=== PATIENT | male | born 1970 | race Two or more races ===

== ENCOUNTER 2020-06-10 13:08 | Outpatient (REF) | payer OTHER, SELFPAY | END 2020-06-10 13:09 | disposition home or self-care (01) | LOC: HO.LAB 13:08 | PROVIDERS: PCP Internal Medicine; Visit Provider Internal Medicine | DX: Z20.828 Contact with and (suspected) exposure to other viral communicable diseases (principal) | CPT/HCPCS: C9803; U0003 ==

== ENCOUNTER 2020-08-10 09:55 | Day surgery (SDC) | payer OTHER, SELFPAY ==
[2020-08-06 15:44] VITALS: BMI 30.8
--- NOTE | 2020-08-07 08:47 | HO.ANESPROP2 ---
Documented by User: Imani Waite 08/07/20 08:48 HPI - Anesthesia Eval Consult details Narrative: 50yo M for Colonoscopy [facility] Past Medical History Medical History HTN (hypertension) Hx of renal calculi Surgical History Surgical History Hx of repair of right rotator cuff Social History Social History Alcohol intake: never Smoking Status: Never smoker Use of substances other than those prescribed or required for medical reasons: No Advance Directives: No Advance Directives Information Provided: No Advance Directives on File: No Meds Allergies Allergy/AdvReac Type Severity Reaction Status Date / Time No Known Allergies Allergy Verified 08/06/20 15:43 Home Medications Medication Instructions Recorded Confirmed Type lisinopril See Rx Instructions .ROUTE .COMPLEX 08/10/20 08/10/20 History Exam Exam Date and Time: August 07, 2020 0847 Height,Weight and Vital Signs: Height 5 ft 10 in Weight 97.522 kg Assessment and Plan Assessment Anesthesia Assessment: Chart Reviewed Documented by User: Mp Pierre 08/10/20 10:50 [facility] Past Medical History Medical History HTN (hypertension) Hx of renal calculi Surgical History Surgical History Hx of repair of right rotator cuff Social History Social History Alcohol intake: never Smoking Status: Never smoker Use of substances other than those prescribed or required for medical reasons: No Advance Directives: No Advance Directives Information Provided: No Advance Directives on File: No Meds Allergies Allergy/AdvReac Type Severity Reaction Status Date / Time No Known Allergies Allergy Verified 08/06/20 15:43 Home Medications Medication Instructions Recorded Confirmed Type lisinopril See Rx Instructions .ROUTE .COMPLEX 08/10/20 08/10/20 History Exam Airway Mallampati Class: II TM Dist: >3cm Neck ROM: Full Loose/Missing/Broken Teeth: No Heart: [id number] Lungs: cta b/l Assessment and Plan Assessment Anesthesia Assessment: Anesthesia Plan Discussed, PAT Visit and Chart Reviewed Final Anesthetic Review NPO: Yes ASA Class: II Final Preanesthetic Review: No Changes in Pt Med Stat, Meds/Allgs Chart Reviewed, Consent Obtained/Reviewed and Anes Risks/Benef Reviewed Patient Risk: Low Procedure Risk: Low Assessment/Block/Sedation in SS: Assess/Block/Sedation-SS Anesthetic Plan Anesthetic Plan: MAC: and Agree w/ Assess. and Plan Disposition: Standard PACU
[2020-08-10 10:18] VITALS: BP 129/88; PULSE 102; RESP 16; TEMP 36.7; O2SAT 97
[2020-08-10] MEDS: Lactated Ringers 1,000 ML 100 ML IVCONT (10:22)
[2020-08-10 11:20] VITALS: BP 101/63; PULSE 104; RESP 16; TEMP 36.4; O2SAT 96
--- NOTE | 2020-08-10 11:20 | PM.OP ---
Brief Operative Note Date of Service: 08/10/20 Pre-op diagnosis: Screening Post-op diagnosis: other (Colon polyps, Diverticulosis) Procedure: [id number] to the cecum and TI with biopsy and removal of polyp, and snare polypectomy Surgeon: Casper Novak Anesthesia: MAC Estimated blood loss (mL): 3.0 Pathology: other (A. Cecal polyp B. Colon polyp at 50cm) Condition: stable Disposition: PACU
[2020-08-10 11:36] VITALS: BP 110/74; PULSE 84; RESP 16; TEMP 36.4; O2SAT 96
--- NOTE | 2020-08-10 12:02 | HO.POSTANES ---
Post Anesthesia Evaluation Post Anesthesia Evaluation Vital Signs: Vital Signs Temp Pulse Resp BP Pulse Ox 08/10/20 11:36 97.5 F 84 16 110/74 96 08/10/20 11:20 97.5 F 104 H 16 101/63 96 08/10/20 10:18 98.0 F 102 H 16 129/88 97 Anesthesia: Monitored Mental Status: Awake Pain Control: Satisfactory Nausea/Vomiting: None Hydration: Adequate Anesthesia-Related Issues: No Anes. Related Issues
--- NOTE | 2020-08-10 12:12 | OP_ITS ---
SURGEON: Casper Novak MD INDICATIONS: The patient presents for evaluation of colorectal cancer screening. Full consent has been obtained from him for this, including risks of bleeding and perforation. PREOPERATIVE DIAGNOSIS: Colorectal cancer screening. POSTOPERATIVE DIAGNOSIS: PROCEDURE PERFORMED: Colonoscopy to cecum and terminal ileum with snare polypectomy, and biopsy and removal of polyp. ESTIMATED BLOOD LOSS: COMPLICATIONS: ANESTHESIA: Monitored anesthesia care. ASSISTANTS: SPECIMENS: POSTOPERATIVE DIAGNOSES: Colorectal cancer screening, colon polyps, diverticulosis, and internal hemorrhoids. DESCRIPTION OF PROCEDURE: The patient was placed in the left lateral decubitus position. The digital rectal exam revealed no abnormalities. The Olympus video pediatric colonoscope was entered into the rectum and advanced easily to the cecum. Once in the cecum, I did identify cecal pouch with appendiceal orifice and a normal-appearing ileocecal valve. The terminal ileum was cannulated and appeared normal. The scope was withdrawn back in the colon. The entire cecum and ileocecal valve appeared normal other than an approximately 3 or 4 mm probable hyperplastic polyp near the appendiceal orifice that was biopsied and completely removed with cold biopsy forceps. The scope was slowly withdrawn assessing all mucosal surfaces carefully. Preparation was excellent. At 50 cm, there was an approximately 6 to 8 mm polyp, which was snared and recovered by suction. The polypectomy site appeared clean, without any sign of residual polyp nor bleeding. I did not visualize any other polyps, colitis, nor angiodysplasia. There was an occasional diverticula in the sigmoid colon. In the rectum, scope was retroflexed visualizing small internal hemorrhoids, but no other pathology. The rectal mucosa appeared normal. The scope was straightened and withdrawn from the patient. He tolerated the procedure well and was returned to recovery area in stable condition. IMPRESSION: 1. Colon polyps, status post snare polypectomy and biopsy removal. 2. Occasional diverticulosis. 3. Small internal hemorrhoids. PLAN: If these are tubular adenoma, I would recommend a followup colonoscopy in 5 years. If they are not tubular adenomas, I would recommend a followup colonoscopy in 10 years for screening. He was advised not to use any aspirin and NSAIDs for 1 week. This has been discussed with his . MD ANGELES Thomason/JOE / [id number]
== END 2020-08-10 12:03 | disposition home or self-care (01) ==
PROVIDERS: PCP Internal Medicine; Visit Provider Internal Medicine
PROC: 0DJD8ZZ Inspection of Lower Intestinal Tract, Via Natural or Artificial Opening Endoscopic (ICD-10-PCS; CPT 45378; principal; 2020-08-10 11:00)
DX: Z12.11 Encounter for screening for malignant neoplasm of colon (principal); D12.5 Benign neoplasm of sigmoid colon; K63.5 Polyp of colon; K57.30 Diverticulosis of large intestine without perforation or abscess without bleeding; K64.8 Other hemorrhoids; I10 Essential (primary) hypertension; Z79.899 Other long term (current) drug therapy
CPT/HCPCS: 45385; 45380; 88305

== ENCOUNTER 2020-10-12 08:57 | Outpatient (REF) | payer OTHER, SELFPAY ==
--- NOTE | ~2020-10-12 | FL_ITS ---
EXAMINATION: XR GI SERIES CLINICAL INFORMATION: Gastroesophageal reflux COMPARISON: None TECHNIQUE: Upper GI was performed using thin and thick barium and effervescent granules. FINDINGS: Esophageal motility is normal. There is mild gastroesophageal reflux. No esophageal hernia, mass or stricture is seen. The stomach and duodenum are normal-appearing. No fold thickening, ulceration, mass or stricture is seen. FLUOROSCOPY TIME: 0.7 DOSE AREA PRODUCT: 10 cook per centimeter squared. 19 saved fluoroscopic images. FL/FL upper GI series IMPRESSION: Mild gastroesophageal reflux otherwise unremarkable exam.
== END 2020-10-12 08:58 | disposition home or self-care (01) ==
LOC: HO.XRAY 08:57
PROVIDERS: PCP Internal Medicine; Visit Provider Internal Medicine
DX: K21.00 Gastro-esophageal reflux disease with esophagitis, without bleeding (principal)
CPT/HCPCS: 74240

== ENCOUNTER 2021-03-19 09:39 | Outpatient (REF) | payer OTHER, SELFPAY | END 2021-03-19 09:40 | disposition home or self-care (01) | LOC: HO.LAB 09:39 | PROVIDERS: PCP Internal Medicine; Referring Provider Internal Medicine; Visit Provider Surgery | DX: L91.8 Other hypertrophic disorders of the skin (principal); L53.8 Other specified erythematous conditions | CPT/HCPCS: 11401; 88304; 88305 ==

== ENCOUNTER 2021-06-15 10:09 | Outpatient (REF) | payer OTHER, SELFPAY ==
[2021-06-15 10:13] LABS: MANUAL DIFF FLAG NO
[2021-06-15 10:39] LABS: Basophils Absolute Auto 0.1 X10*3/uL (0.0-0.2); Basophils Percent Auto 0.9 % (0-2); Eosinophils Absolute Auto 0.3 X10*3/uL (0.0-0.4); Eosinophils Percent Auto 3.4 % (0-4); Hemoglobin 13.4 g/dl (14.0-18.0); Imm Gran Abs Auto 0.02 X10*3/uL (0.00-0.03); Imm Gran Pct Auto 0.2 % (0.0-0.4); Lymphocytes Absolute Auto 2.5 X10*3/uL (1.2-4.9); Lymphocytes Percent Auto 26.8 % (20-40); Mean Corpuscular HGB Conc 33.5 g/dl (31.0-36.0); Mean Corpuscular Hemoglobin 28.8 pg (27.0-33.0); Mean Corpuscular Volume 85.8 fL (80.0-98.0); Mean Platelet Volume 11.1 fL (9.4-12.4); Monocytes Absolute Auto 0.8 X10*3/uL (0.1-1.2); Monocytes Percent Auto 8.8 % (2-11); Neutrophils Absolute Auto 5.5 x10*3/uL (2.0-8.3); Neutrophils Percent Auto 59.9 % (45-73); Platelet Count 252 X10*3/uL (160-400); Red Blood Count 4.66 X10*6/uL (4.60-5.80); Red Cell Distribution Width 12.8 % (11.0-16.0); White Blood Count 9.2 X10*3/uL (4.8-10.8)
[2021-06-15 10:59] LABS: Appearance Urine CLEAR; Color Urine YELLOW; Glucose Urine UA NEG (NEG); Leukocyte Esterase Urine NEG (NEG); Nitrite Urine NEG (NEG); Specific Gravity - Urine 1.015 (1.005-1.025); Urine Blood NEG (NEG); Urine Ketones NEG (NEG); Urine Protein TRACE MG/DL (NEG-TRACE)
[2021-06-15 11:27] LABS: Alanine Aminotransferase 44 U/L (0-40); Albumin Level 4.5 g/dL (3.5-5.0); Alkaline Phosphatase 81 U/L (39-117); Anion Gap 14 (12-20); Aspartate Amino Transferase 32 U/L (5-37); Bilirubin Total 0.3 mg/dL (0.0-1.0); Blood Urea Nitrogen 18 mg/dL (9-16); Calcium 9.3 mg/dL (8.4-10.2); Carbon Dioxide 24 mmol/L (22-29); Chloride 105 mmol/L (96-108); Cholesterol 221 mg/dL; Estimated Glomerular Filt Rate > 60; Glucose Fasting 110 mg/dL (60-99); HDL Cholesterol 54 mg/dL; LDL Cholesterol Calculated 145 mg/dl; Potassium 4.4 mmol/L (3.3-5.1); Sodium 139 mmol/L (135-145); Total Protein 7.6 g/dL (6.5-8.0); Triglycerides 114 mg/dL
[2021-06-15 11:30] LABS: PSA,Total (Free>4and<10) 2.08 ng/mL (0.00-4.00)
== END 2021-06-15 10:10 | disposition home or self-care (01) ==
LOC: HO.LNP 10:09
PROVIDERS: PCP Internal Medicine; Visit Provider Internal Medicine
DX: Z00.00 Encounter for general adult medical examination without abnormal findings (principal); Z12.5 Encounter for screening for malignant neoplasm of prostate; I10 Essential (primary) hypertension; E78.9 Disorder of lipoprotein metabolism, unspecified
CPT/HCPCS: 80053; 80061; 81003; 84153; 85025

== ENCOUNTER 2021-06-27 21:19 | Emergency (ER) | payer OTHER, SELFPAY ==
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
[2021-06-27 21:25] VITALS: BP 121/73; PULSE 84; RESP 18; TEMP 36.1; O2SAT 95; BMI 33.2
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
[2021-06-28] MEDS: Cyclobenzaprine HCl 10 MG TABLET PO (00:16)
== END 2021-06-28 00:35 | disposition home or self-care (01) ==
PROVIDERS: Emergency Provider Emergency Medicine; PCP Internal Medicine
DX: S39.012A Strain of muscle, fascia and tendon of lower back, initial encounter (principal); S13.4XXA Sprain of ligaments of cervical spine, initial encounter; I10 Essential (primary) hypertension; V89.2XXA Person injured in unspecified motor-vehicle accident, traffic, initial encounter; Y93.9 Activity, unspecified; Y92.410 Unspecified street and highway as the place of occurrence of the external cause; Y99.9 Unspecified external cause status
CPT/HCPCS: 72040; 72100; 99283; 99284

== ENCOUNTER 2022-03-26 12:11 | Emergency (ER) | payer OTHER, SELFPAY ==
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
[2022-03-26 12:17] VITALS: BP 134/92; PULSE 101; RESP 20; TEMP 35.8; O2SAT 97; BMI 35.4
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
[2022-03-26 15:41] VITALS: BP 136/83; PULSE 88; RESP 16; TEMP 37; O2SAT 96
== END 2022-03-26 16:19 | disposition home or self-care (01) ==
PROVIDERS: Emergency Provider Emergency Medicine; PCP Internal Medicine
DX: S39.012A Strain of muscle, fascia and tendon of lower back, initial encounter (principal); V73.5XXA Driver of bus injured in collision with car, pick-up truck or van in traffic accident, initial encounter; Y93.89 Activity, other specified; Y92.414 Local residential or business street as the place of occurrence of the external cause; Y99.0 Civilian activity done for income or pay
CPT/HCPCS: 72100; 99283; 99284

== ENCOUNTER 2022-04-28 09:24 | Outpatient (REF) | payer OTHER, SELFPAY ==
--- NOTE | ~2022-04-28 | MR_ITS ---
EXAMINATION: MR LUMBAR SPINE WITHOUT AND WITH CONTRAST CLINICAL INFORMATION: Lumbar disc disease. COMPARISON: None TECHNIQUE: MRI of the lumbar spine was obtained using routine sequences without and with intravenous contrast. A total of 10 mL Gadavist was intravenously administered. FINDINGS: The lumbar vertebral bodies maintain normal heights. There is mild retrolisthesis of L3 on L4 and L4 on L5. There is mild to moderate disc height loss at L4-L5 and mild disc height loss at L3-L4. Minimal subchondral endplate edema seen at the L4-L5 level. The distal spinal cord appears normal. The conus medullaris terminates normally at the T12-L1 level. There is no abnormal cauda equina nerve root enhancement. The extraspinal soft tissues appear normal. SPINAL LEVELS: L1-L2: No posterior disc abnormality. No spinal canal or neural foraminal stenosis. L2-L3: No posterior disc abnormality. No spinal canal or neural foraminal stenosis. L3-L4: Disc bulging with mild flattening of the ventral thecal sac and mild narrowing of the bilateral neural foramina. Bilateral subarticular stenosis with abutment of both traversing L4 nerve root. L4-L5: Right hemilaminectomy changes. Disc bulging with right subarticular protrusion resulting in compression of the traversing right L5 nerve root. Disc bulging combination with left-sided ligamentum flavum infolding, facet arthropathy, and epidural lipomatosis results in moderate spinal canal stenosis. Mild narrowing the right neural foramen without foraminal nerve root compression. Enhancement within the right subarticular zone is noted compatible with granulation tissue. L5-S1: No posterior disc abnormality. Mild facet arthropathy. No spinal canal or neural foraminal stenosis. MR/MR lumbar spine wo/w con IMPRESSION: At L4-L5 there are right hemilaminectomy changes. Right subarticular protrusion compresses the traversing right L5 nerve root. Underlying spondylosis results in moderate spinal canal stenosis. At L3-L4 there is bilateral subarticular stenosis with abutment of both traversing L4 nerve root.
== END 2022-04-28 09:25 | disposition home or self-care (01) ==
LOC: HO.MRI 09:24
PROVIDERS: Visit Provider Internal Medicine
DX: M51.9 Unspecified thoracic, thoracolumbar and lumbosacral intervertebral disc disorder (principal)
CPT/HCPCS: 72158; A9585

== ENCOUNTER → 2022-11-22 14:48 | Outpatient (BNVA) | payer OTHER, SELFPAY | PROVIDERS: PCP Internal Medicine; Visit Provider Neurological Surgery | DX: Z13.89 Encounter for screening for other disorder (principal) ==

== ENCOUNTER 2023-04-11 12:19 | Outpatient (REF) | payer OTHER, SELFPAY ==
--- NOTE | ~2023-04-11 | US_ITS ---
EXAMINATION: US VENOUS ULTRASOUND WITH DOPPLER LOWER EXTREMITY, LEFT CLINICAL INFORMATION: Ruptured Wilburn's cyst, rule out DVT COMPARISON: None available. TECHNIQUE: Ultrasound of the deep veins is performed from the hip to the calf with compression sonography and color and pulse Doppler assessment. Spectral analysis with color-flow imaging is performed. FINDINGS: There is normal venous compression and respiratory variation and augmented flow. The visualized common femoral vein, superficial femoral vein, profunda femoral vein, popliteal vein, and the trifurcation region shows no evidence of deep venous thrombosis. There is no significant popliteal fossa cyst. If the patient's symptoms persist, followup ultrasound in 5 days 7 days might be of value to exclude proximal propagation from a non-visualized calf vein. US/US venous duplex LE LT IMPRESSION: No DVT demonstrated in the left lower extremity. No sonographic evidence of ruptured or nonruptured Wilburn's cyst.
== END 2023-04-11 12:20 | disposition home or self-care (01) ==
LOC: HO.US 12:19
PROVIDERS: PCP Internal Medicine; Visit Provider Internal Medicine
DX: M66.0 Rupture of popliteal cyst (principal)
CPT/HCPCS: 93971

== ENCOUNTER 2023-05-03 07:46 | Outpatient (REF) | payer OTHER, SELFPAY ==
--- NOTE | ~2023-05-03 | XR_ITS ---
EXAMINATION: XR KNEE, LEFT CLINICAL INFORMATION: Pain COMPARISON: None available. TECHNIQUE: Three views of the left knee. FINDINGS: No acute visible fracture or dislocation. Mild narrowing medial femorotibial compartment. Periarticular osteophyte along the inferior margin of the patella. A small fabella is noted in the posterior compartment. Joint spaces and alignment are otherwise maintained. Small joint effusion. Soft tissues are unremarkable. XR/XR knee LT 3V IMPRESSION: 1. No acute visible fracture or dislocation. 2. Mild multicompartment degenerative changes with small joint effusion.
== END 2023-05-03 07:47 | disposition home or self-care (01) ==
LOC: HO.HOSX 07:46
PROVIDERS: Visit Provider Orthopaedic Surgery
DX: M25.562 Pain in left knee (principal)
CPT/HCPCS: 73562

== ENCOUNTER 2023-05-03 08:59 | Outpatient (AMB) | payer OTHER, SELFPAY ==
--- NOTE | 2023-05-03 09:06 | MHC.OFFVIS ---
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 The patient states that he injured his knee approximately 1 year ago. He twisted his knee and had acute onset of pain. He states that he reaggravated his knee approximately 1 month ago. Since that time his knee pain and instability have gotten progressively worse. He has done physical therapy which aggravated his pain. He has also had injections in the past which gave him minimal relief. He has been wearing a knee brace which gives him only mild relief. He has tried Tylenol and anti-inflammatory medicines which gave him no relief. The patient states that his left knee will give out several times per day. Allergies No Known Allergies Allergy (Verified 05/03/23 09:12) Medication List - Last Reconciled 05/03/23 by Kory Mcgrath MD cyclobenzaprine 10 mg PO TID PRN cyclobenzaprine 10 mg PO BEDTIME PRN [lisinopril Lisinopril 10 mg po once daily] PFSH Medical History HTN (hypertension) Hx of renal calculi Surgical History Hx of repair of right rotator cuff Social History Alcohol intake: never Physical Exam Vital Signs: BMI result Body Mass Index 33.7 Const Other: Well-nourished well-developed very friendly male awake alert and oriented x3 in no acute distress Extrem Other: Bilateral lower extremity examination shows good capillary refill, no skin lesions noted, normal sensation light touch Left knee examination shows a minimal effusion, minimal crepitus with range of motion, tenderness along his medial joint line, positive Wilfredo's test, no instability Results Reviewed Results Reviewed: X-rays of the patient's left knee show mild diffuse joint space narrowing, no acute bony abnormalities Assessment & Plan Assessment & Plan (1) Left knee pain: Code(s): M25.562 - Pain in left knee Plan Mr. Shad Zelaya presents with progressively worsening left knee pain and mechanical symptoms most likely due to a tear of his medial meniscus. Thus, I will send the patient for an MRI of his left knee for further evaluation. I will see him back once the MRI is completed to discuss the findings and treatment options. He continue with his activity modifications in the meantime. Feel free to call me at any time should questions regarding his orthopedic management arise. Thank you very much for asking me to see this very friendly gentleman. I spent 22 minutes in reviewing the patient's records and imaging studies, seeing the patient and documenting in the medical record. Orders: Orders XR knee LT 3V Today M25.562 - Pain in left knee MR knee LT wo con Today M25.562 - Pain in left knee Coding Level of Care Code New Pt Level 2 (07116) Diagnoses Left knee pain M25.562
[2023-05-03 09:12] VITALS: BMI 33.7
== END 2023-05-03 09:32 | disposition home or self-care (01) ==
PROVIDERS: PCP Internal Medicine; Visit Provider Orthopaedic Surgery
DX: M25.562 Pain in left knee (principal)
CPT/HCPCS: 99202

== ENCOUNTER 2023-05-26 10:26 | Outpatient (REF) | payer OTHER, SELFPAY ==
[2023-05-26 10:29] LABS: MANUAL DIFF FLAG NO
[2023-05-26 10:48] LABS: Basophils Absolute Auto 0.1 X10*3/uL (0.0-0.2); Basophils Percent Auto 0.8 % (0-2); Eosinophils Absolute Auto 0.2 X10*3/uL (0.0-0.4); Eosinophils Percent Auto 2.4 % (0-4); Hematocrit 40.9 % (42.0-52.0); Hemoglobin 13.4 g/dl (14.0-18.0); Imm Gran Abs Auto 0.03 X10*3/uL (0.00-0.03); Imm Gran Pct Auto 0.3 % (0.0-0.4); Lymphocytes Absolute Auto 2.5 X10*3/uL (1.2-4.9); Lymphocytes Percent Auto 28.5 % (20-40); Mean Corpuscular HGB Conc 32.8 g/dl (31.0-36.0); Mean Corpuscular Hemoglobin 28.1 pg (27.0-33.0); Mean Corpuscular Volume 85.7 fL (80.0-98.0); Mean Platelet Volume 11.4 fL (9.4-12.4); Monocytes Absolute Auto 0.7 X10*3/uL (0.1-1.2); Monocytes Percent Auto 7.8 % (2-11); Neutrophils Absolute Auto 5.2 x10*3/uL (2.0-8.3); Neutrophils Percent Auto 60.2 % (45-73); Platelet Count 254 X10*3/uL (160-400); Red Blood Count 4.77 X10*6/uL (4.60-5.80); Red Cell Distribution Width 13.4 % (11.0-16.0); White Blood Count 8.7 X10*3/uL (4.8-10.8)
[2023-05-26 10:55] LABS: Appearance Urine Clear; Color Urine Yellow; Glucose Urine UA Negative (Negative); Leukocyte Esterase Urine Negative (Negative); Nitrite Urine Negative (Negative); PH 5.5 (5.0-9.0); Specific Gravity - Urine 1.025 (1.005-1.025); Urine Blood Negative (Negative); Urine Ketones Negative (Negative); Urine Protein Negative (Neg-Trace)
[2023-05-26 10:58] LABS: Bacteria Urine None Seen (None Seen); Hyaline Casts Urine 0-2 /LPF (0-2); RBC Urine 0-2 /HPF (0-2); Squamous Epithelial Cell Urine 0-2 /HPF (0-2); WBC Urine 0-5 /HPF (0-5)
[2023-05-26 11:06] LABS: Alanine Aminotransferase 34 U/L (0-40); Albumin Level 4.4 g/dL (3.5-5.0); Alkaline Phosphatase 87 U/L (39-117); Anion Gap 11 (12-20); Aspartate Amino Transferase 29 U/L (5-37); Bilirubin Total 0.3 mg/dL (0.0-1.0); Blood Urea Nitrogen 17 mg/dL (9-16); Calcium 9.5 mg/dL (8.4-10.2); Carbon Dioxide 26 mmol/L (22-29); Chloride 106 mmol/L (96-108); Cholesterol 227 mg/dL (<200); Estimated Glomerular Filt Rate > 60; Glucose Fasting 124 mg/dL (60-99); HDL Cholesterol 51 mg/dL (>40); LDL Cholesterol Calculated 156 mg/dL (<100); Potassium 4.1 mmol/L (3.3-5.1); Sodium 139 mmol/L (135-145); Total Protein 7.7 g/dL (6.5-8.0); Triglycerides 102 mg/dL (<150)
[2023-05-26 11:19] LABS: PSA,Total (Free>4and<10) 1.89 ng/mL (0.00-4.00)
== END 2023-05-26 10:27 | disposition home or self-care (01) ==
LOC: HO.LNP 10:26
PROVIDERS: Visit Provider Internal Medicine
DX: Z00.00 Encounter for general adult medical examination without abnormal findings (principal); Z12.5 Encounter for screening for malignant neoplasm of prostate; I10 Essential (primary) hypertension; E78.9 Disorder of lipoprotein metabolism, unspecified
CPT/HCPCS: 80053; 80061; 81001; 84153; 85025

== ENCOUNTER 2023-06-14 08:50 | Outpatient (REF) | payer OTHER, SELFPAY ==
--- NOTE | ~2023-06-14 | MR_ITS ---
EXAMINATION: MR KNEE WITHOUT CONTRAST, LEFT CLINICAL INFORMATION: Left knee pain. COMPARISON: Radiographs dated 05/03/2023. TECHNIQUE: MRI of the knee without contrast was performed using routine sequences on a high-field scanner. FINDINGS: MENISCI: Medial Meniscus: There is a horizontal tear of the posterior horn and body extending to the meniscal undersurface. A 1.2 cm (AP) meniscal undersurface flap fragment is extruded into the meniscotibial recess medially. There is a small radial component to the tear at the inner margin of the meniscal body. Lateral Meniscus: Intact LIGAMENTS: Cruciate: Intact Collateral: Edema signal around the MCL is likely reactive to the underlying meniscal abnormality. Collateral ligaments are intact. EXTENSOR MECHANISM: Intact ARTICULAR CARTILAGE/BONE: Patellofemoral Compartment: Small marginal osteophytes are present at the patella, more pronounced inferomedially, with minimal adjacent chondral fissuring. Trochlear cartilage appears normal. Normal trochlear morphology. Medial Compartment: Normal Lateral Compartment: Normal JOINT FLUID AND BURSAE: Moderate-sized joint effusion. No Wilburn's cyst. There is a 1.3 x 0.7 x 0.2 cm chondral loose body in the posterior recess of the medial compartment. Smaller chondral loose bodies are present in the popliteus tendon sheath, measuring up to 3 mm in diameter. MR/MR knee LT wo con IMPRESSION: 1. Complex horizontal tear of the posterior horn and body of the medial meniscus with a small extruded undersurface flap fragment. 2. Minimal patellofemoral compartment osteoarthritis. 3. Moderate-sized joint effusion with a 1.3 cm chondral loose body in the posterior recess of the medial compartment. Smaller chondral loose bodies are present in the popliteus tendon sheath.
== END 2023-06-14 08:51 | disposition home or self-care (01) ==
LOC: HO.MRI 08:50
PROVIDERS: PCP Internal Medicine; Visit Provider Orthopaedic Surgery
DX: M25.562 Pain in left knee (principal)
CPT/HCPCS: 73721

== ENCOUNTER 2023-06-28 08:30 | Outpatient (AMB) | payer OTHER, SELFPAY ==
--- NOTE | 2023-06-28 08:33 | A.OFFVIS_ITS ---
Intake Vital Signs 06/28/23 08:34 Height 5 ft 10 in Weight 235 lb BMI 33.7 Intake Visit Reasons: ov- MRI Knee LT review Intake Note: Brodie is a 53 year old male who presents today with complaints of left knee pain and giving way. The patient states that he injured his knee approximately 1 year ago. He twisted his knee and had acute onset of pain. He states that he reaggravated his knee approximately 1 month ago. Since that time his knee pain and instability have gotten progressively worse. He has done physical therapy which aggravated his pain. He has also had injections in the past which gave him minimal relief. He has been wearing a knee brace which gives him only mild relief. He has tried Tylenol and anti-inflammatory medicines which gave him no relief. The patient states that his left knee will give out several times per day. Allergies No Known Allergies Allergy (Verified 06/28/23 08:33) Medication List - Last Reconciled 06/28/23 by Kory Mcgrath MD cyclobenzaprine 10 mg PO TID PRN cyclobenzaprine 10 mg PO BEDTIME PRN [lisinopril Lisinopril 10 mg po once daily] [facility], [facility] Medical History HTN (hypertension) Hx of renal calculi Surgical History Hx of repair of right rotator cuff Social History Alcohol intake: never Physical Exam Vital Signs: BMI result Body Mass Index 33.7 Const Other: Well-nourished well-developed very friendly male awake alert and oriented x3 in no acute distress Extrem Other: Bilateral lower extremity examination shows good capillary refill, no skin lesions noted, normal sensation light touch Left knee examination shows a minimal effusion, minimal crepitus with range of motion, tenderness along his medial and lateral joint lines, positive Wilfredo's test, no instability Results Reviewed Results Reviewed: MRI of the patient's left knee shows mild diffuse degenerative changes, a tear of his medial meniscus, possible tearing of his lateral meniscus, no acute bony abnormalities Assessment & Plan Assessment & Plan (1) Left knee pain: Code(s): M25.562 - Pain in left knee Plan Mr. Shad Zelaya presents with left knee pain and mechanical symptoms due to tearing of his medial meniscus and possible lateral meniscus. I had a lengthy discussion with the patient regarding the treatment options. At this point he has failed continued non operative treatments. The risks and benefits of left knee arthroscopic surgery were discussed at length with the patient. The patient wishes to proceed. He does understand that he may not get 100% relief of his symptoms depending on the severity of his degenerative changes. I will have my office contact the patient to pick a surgery date. He will follow-up as instructed. Feel free to call me at any time should questions regarding his orthopedic management arise. I spent 22 minutes in reviewing the patient's records and imaging studies, seeing the patient and documenting in the medical record. Coding Level of Care Code Est Pt Level 2 (58912) Diagnoses Left knee pain M25.562
[2023-06-28 08:34] VITALS: BMI 33.7
== END 2023-06-28 08:47 | disposition home or self-care (01) ==
PROVIDERS: PCP Internal Medicine; Visit Provider Orthopaedic Surgery
DX: M25.562 Pain in left knee (principal)
CPT/HCPCS: 99212

== ENCOUNTER → 2023-06-28 08:30 | Outpatient (BNVA) | payer OTHER, SELFPAY | PROVIDERS: PCP Internal Medicine; Visit Provider Orthopaedic Surgery ==

== ENCOUNTER 2023-07-21 10:52 | Day surgery (SDC) | payer OTHER, SELFPAY ==
--- NOTE | 2023-07-20 10:00 | HO.ANESPROP2 ---
Documented by User: Imani Waite NP 07/20/23 10:02 HPI - Anesthesia Eval Consult details Narrative: 53yo M for Left Knee Arthroscopy, partial medial meniscectomy, possible lateral meniscectomy [facility] Active Problems Active Problems: All Active Problems (Updated 05/03/23 @ 07:47 by Kory Mcgrath MD) Left knee pain (Acute) S/P lumbar microdiscectomy (Acute) Skin tag (Acute) Past Medical History Medical History HTN (hypertension) Hx of renal calculi Surgical History Surgical History Hx of repair of right rotator cuff Social History Social History Alcohol intake: never Patient Tobacco Use Status: Never used Tobacco Use of substances other than those prescribed or required for medical reasons: No Are you DNR?: No Advance Directives: No Advance Directives Information Provided: Yes Meds Allergies Allergy/AdvReac Type Severity Reaction Status Date / Time No Known Allergies Allergy Verified 06/28/23 08:33 Active Medications: Current Medications Cefazolin Sodium/Dextrose (Ancef) 2 gm in 50 mls @ 100 mls/hr IV PREOP ONE Stop: 07/21/23 07:19 Home Medications Medication Instructions Recorded Confirmed Last Taken Type lisinopril See Rx Instructions .Route 08/10/20 06/28/23 08/10/20 09:00 History .COMPLEX hypertension Exam Pertinent Lab Results Pertinent Lab Results: Laboratory Tests 05/26/23 07:00 WBC 8.7 Hgb 13.4 L Hct 40.9 L Plt Count 254 Sodium 139 Potassium 4.1 Chloride 106 Carbon Dioxide 26 BUN 17 H Creatinine 0.97 Assessment and Plan Assessment Anesthesia Assessment: Chart Reviewed Documented by User: Jose Juan Dumont MD 07/21/23 11:11 [facility] Past Medical History Medical History HTN (hypertension) Hx of renal calculi Family History Family history of problems with anesthesia: No Surgical History Surgical History Hx of repair of right rotator cuff History of Problems with Anesthesia: No Social History Social History Alcohol intake: never Patient Tobacco Use Status: Never used Tobacco Use of substances other than those prescribed or required for medical reasons: No Are you DNR?: No Advance Directives: No Advance Directives Information Provided: Yes Meds Allergies Allergy/AdvReac Type Severity Reaction Status Date / Time No Known Allergies Allergy Verified 06/28/23 08:33 Home Medications Medication Instructions Recorded Confirmed Last Taken Type lisinopril See Rx Instructions .Route 08/10/20 06/28/23 08/10/20 09:00 History .COMPLEX hypertension Exam Airway Mallampati Class: III TM Dist: >3cm Neck ROM: Limited Heart: rrr Lungs: cta Assessment and Plan Assessment Anesthesia Assessment: Anesthesia Plan Discussed Final Anesthetic Review Family History of Problems with Anesthesia: No History of Problems with Anesthesia: No NPO: Yes ASA Class: III Final Preanesthetic Review: No Changes in Pt Med Stat, Meds/Allgs Chart Reviewed, Consent Obtained/Reviewed and Anes Risks/Benef Reviewed Patient Risk: Intermediate Procedure Risk: Intermediate Anesthetic Plan Anesthetic Plan: GA and Agree w/ Assess. and Plan Disposition: Standard PACU
[2023-07-21] VITALS (7 sets, daily range): BP systolic 111–140; BP diastolic 51–80; PULSE 85–100; RESP 16; TEMP 36.2–36.6; O2SAT 93–96; BMI 36.0
[2023-07-21] MEDS: Lactated Ringers 1,000 ML 100 ML IVCONT (11:18)
--- NOTE | 2023-07-21 14:34 | PM.OP ---
Brief Operative Note Date of Service: 07/21/23 Pre-op diagnosis: Left knee medial meniscus tear, left knee lateral meniscus tear Post-op diagnosis: same Procedure: Left knee diagnostic arthroscopy with left knee arthroscopic partial medial and lateral meniscectomies Implants: none Surgeon: Kory Mcgrath MD Anesthesia: GLMA Was an Confectionery Cooker used for this Procedure?: No Estimated blood loss (mL): 10 Pathology: none sent Condition: stable Disposition: PACU
--- NOTE | 2023-07-21 14:35 | W.PM.OPN ---
Operative Note Operative Note Date of Service: 07/21/23 Narrative: After the patient was identified as Brodie Zelaya and his left knee was initialed by myself they were brought to the operating room where general anesthesia was induced by the anesthesiologist in routine fashion. The patient was given 2 g of IV Ancef preoperatively for infection prophylaxis. The patient's left lower extremity was prepped and draped in sterile fashion. A formal time-out was completed. Marcaine was injected into the planned incision sites as well as the patient's left knee joint. A #11 scalpel blade was used to make an anterolateral portal 1 cm proximal to the joint line and 1 cm lateral to the patellar tendon. Blunt trocar technique was used to enter the suprapatellar pouch with the knee in extension. Diagnostic arthroscopy showed multiple bands of thickened plica which would be excised at the end of the procedure. There were no loose bodies or abnormalities found in either the medial or lateral gutters. The articular surface of the patella showed diffuse grades 1 and 2 degenerative changes. The trochlear groove articular surface showed diffuse grade 1 degenerative changes. The patient's knee was flexed to 45 degrees and a valgus force was placed upon it. The medial compartment was entered. An anteromedial portal was made 1 cm proximal to the joint line and 1 cm medial to the patellar tendon. Probing of the medial meniscus showed a radial tear of the anterior horn. A partial medial meniscectomy was performed using the arthroscopic shaver. Following the partial meniscectomy the remainder of the meniscus tissue was stable. There were diffuse grade 1 degenerative changes of the medial femoral condyle as well as grade 1 degenerative changes of the medial tibial plateau. The patient's knee was placed into a neutral position. There was no injury to the anterior cruciate ligament. The patient's knee was then placed in the figure of 4 position and the lateral compartment was entered. There was a radial tear of the anterior horn of the lateral meniscus. A partial lateral meniscectomy was performed using the arthroscopic shaver. Following the partial meniscectomy the remainder of the meniscus tissue was stable. There were minimal degenerative changes of the lateral femoral condyle and lateral tibial plateau. The patient's knee was once again brought into extension and the suprapatellar pouch was entered. The arthroscopic shaver and the ArthroCare Wand were used to excise the thickened bands of plica. The undersurface of the patella was then made smooth using the arthroscopic shaver. The articular surface of the trochlear groove was already smooth so no chondroplasty was indicated. The knee joint was irrigated and then drained. All arthroscopic instruments were removed. The 2 portals were closed with 3-0 nylon interrupted suture. The knee joint was injected with Marcaine. Dry sterile dressing and Vinay bandages were placed over the patient's knee. The patient was awoken and extubated in the operating room. The patient was transferred to the recovery room in stable condition.
[2023-07-21] MEDS: oxyCODONE HCl Immed Release 5 MG TABLET PO (15:22)
== END 2023-07-21 15:39 | disposition home or self-care (01) ==
PROVIDERS: PCP Internal Medicine; Visit Provider Orthopaedic Surgery
PROC: (CPT 29870; principal; 2023-07-21 12:30)
DX: S83.242A Other tear of medial meniscus, current injury, left knee, initial encounter (principal); S83.282A Other tear of lateral meniscus, current injury, left knee, initial encounter; M25.562 Pain in left knee; M17.12 Unilateral primary osteoarthritis, left knee; M23.52 Chronic instability of knee, left knee; M67.52 Plica syndrome, left knee; X50.1XXA Overexertion from prolonged static or awkward postures, initial encounter; Y93.9 Activity, unspecified; Y92.9 Unspecified place or not applicable; Y99.9 Unspecified external cause status; I10 Essential (primary) hypertension; Z79.899 Other long term (current) drug therapy; Z98.890 Other specified postprocedural states
CPT/HCPCS: 29880; J0131; J0171; J0690; J0696; J1100; J1885; J2405; J2704; J2795; J3010

== ENCOUNTER → 2023-07-21 10:52 | Outpatient (BNV) | payer OTHER, SELFPAY | PROVIDERS: PCP Internal Medicine; Visit Provider Orthopaedic Surgery | DX: S83.242A Other tear of medial meniscus, current injury, left knee, initial encounter (principal); S83.281A Other tear of lateral meniscus, current injury, right knee, initial encounter | CPT/HCPCS: 29880 ==

== ENCOUNTER 2023-08-03 09:18 | Outpatient (AMB) | payer OTHER, SELFPAY ==
--- NOTE | 2023-08-03 09:26 | A.OFFVIS_ITS ---
Intake Intake Visit Reasons: PO-Lt Knee 07/21/23 Intake Note: Breanne 53 year old male presents today for a post operative left knee on 07/21/23 with . Patient reports he is doing well, states mild pain that increases with activity. Allergies No Known Allergies Allergy (Verified 08/03/23 09:29) HPI PO-Lt Knee 07/21/23 HPI Details 53-year-old male who returns to the [facility] today for post-op left knee , 07/21/[address] Mcgrath. He continues to have mild pain which is aggravated with activities and bending but is doing well otherwise. He has no other concerns today. [facility] Medical History HTN (hypertension) Hx of renal calculi Surgical History Hx of repair of right rotator cuff Social History Alcohol intake: never Patient Tobacco Use Status: Never used Tobacco Review of Systems Const All systems reviewed & are unremarkable except as noted in HPI and below Physical Exam Extrem Other: Left knee: Incision clean, dry and intact. No erythema or drainage. He has moderate joint effusion. ROM is 0-90 degrees. Calf supple, nontender. NVI. Results Reviewed Results Reviewed: Date of Service: 07/21/23 Pre-op diagnosis: Left knee medial meniscus tear, left knee lateral meniscus tear Post-op diagnosis: same Procedure: Left knee diagnostic arthroscopy with left knee arthroscopic partial medial and lateral meniscectomies Implants: none Surgeon: Kory Mcgrath MD Assessment & Plan Assessment & Plan (1) History of meniscectomy of right knee: Code(s): Z98.890 - Other specified postprocedural states Plan Sutures removed today, steri strips applied. I did offer some physical therapy to work on ROM and quad strength but he is confident and would like to do it on his own. He will contact the office if he feels the need to work on therapy. He will return to work on August 20 without restrictions and see us back in [address] Mcgrath, sooner if needed. Patient Instructions: Scribed for José Nicole PA-C, by Jonas Schmitz, senior medical technologist, on 08/03/2023 at 9:15 AM EST. I, José Nicole PA-C, have personally reviewed and agree with the information entered by the scribe. Coding Level of Care Code Global (70972) Diagnoses History of meniscectomy of right knee Z98.890
== END 2023-08-03 09:56 | disposition home or self-care (01) ==
PROVIDERS: PCP Internal Medicine; Visit Provider Physician Assistant
DX: Z98.890 Other specified postprocedural states (principal)
CPT/HCPCS: 99024

== ENCOUNTER → 2023-08-03 09:18 | Outpatient (BNVA) | payer OTHER, SELFPAY | PROVIDERS: PCP Internal Medicine; Visit Provider Physician Assistant ==

== ENCOUNTER 2024-04-09 10:57 | Outpatient (REF) | payer OTHER, SELFPAY ==
--- NOTE | ~2024-04-09 | XR_ITS ---
EXAMINATION: XR KNEE, RIGHT CLINICAL INFORMATION: Acute torn meniscus. Pain and swelling. COMPARISON: None available. TECHNIQUE: Three views of the right knee. FINDINGS: Small joint effusion. No fracture or malalignment. Joint spaces are well-preserved. Soft tissues are unremarkable. Bone mineralization is normal. XR/XR knee RT 3V IMPRESSION: Small joint effusion. No acute osseous findings. Electronically signed by: Kentrell Fernandez MD 04/09/2024 02:20 PM EDT RP
== END 2024-04-09 10:58 | disposition home or self-care (01) ==
LOC: HO.XRAY 10:57
PROVIDERS: PCP Internal Medicine; Visit Provider Internal Medicine
DX: S83.203A Other tear of unspecified meniscus, current injury, right knee, initial encounter (principal)
CPT/HCPCS: 73562

== ENCOUNTER 2024-05-14 08:26 | Outpatient (AMB) | payer OTHER, SELFPAY ==
--- NOTE | 2024-05-14 08:27 | MHC.OFFVIS ---
Intake Visit Reasons: Right knee pain and giving way Intake Note: Brodie is a 54 year old male who presents with complaints of progressively worsening right knee pain and giving way. The patient did undergo left knee arthroscopic surgery last year. He got fairly good relief from that procedure. He reports minimal discomfort in his left knee. He describes his right knee pain as sharp and severe in nature. He has failed the last 6 weeks of conservative treatment which has consisted of a home physical therapy program, Tylenol and anti-inflammatory medicines as well as muscle relaxants and topical creams. Most of the pain is along the medial aspect of his right knee. He states his right knee will give out several times per day. He has had injections in the past which gave him minimal relief. Allergies No Known Allergies Allergy (Verified 05/14/24 08:32) Medication List - Last Reconciled 05/14/24 by Kory Mcgrath MD cyclobenzaprine 10 mg PO TID PRN cyclobenzaprine 10 mg PO BEDTIME PRN [lisinopril Lisinopril 10 mg po once daily] oxycodone-acetaminophen 5-325 mg (Percocet) 1 tab PO Q6H PRN PFSH Medical History HTN (hypertension) Hx of renal calculi Surgical History Hx of repair of right rotator cuff Social History Alcohol intake: never Patient Tobacco Use Status: Never used Tobacco Physical Exam Const Other: Well-nourished well-developed very friendly male awake alert and oriented x3 in no acute distress Extrem Other: Bilateral lower extremity examination shows good capillary refill, no skin lesions noted, normal sensation light touch Right knee examination shows a minimal effusion, minimal crepitus with range of motion, tenderness along medial joint line, positive Wilfredo's test, no instability Results Reviewed Results Reviewed: Standing full weight-bearing x-rays of the patient's right knee show minimal diffuse joint space narrowing, no acute bony abnormalities Assessment & Plan Assessment & Plan (1) Right knee pain: Code(s): M25.561 - Pain in right knee Category: Medical Plan Brodie presents with progressively worsening right knee pain and mechanical symptoms most likely due to a tear of his medial meniscus. I will send the patient for an MRI of his right knee for further evaluation. I will see him back once the MRI is completed to discuss the findings and treatment options. Feel free to call me at any time should questions regarding his orthopedic management arise. I spent 20 minutes in reviewing the patient's records and imaging studies, seeing the patient and documenting in the medical record. Orders: Orders MR knee RT wo con Today M25.561 - Pain in right knee Coding Level of Care Code Est Pt Level 3 (40755) Complex EM visit Add On G2211 Diagnoses Right knee pain M25.561
== END 2024-05-14 08:37 | disposition home or self-care (01) ==
PROVIDERS: PCP Internal Medicine; Visit Provider Orthopaedic Surgery
DX: M25.561 Pain in right knee (principal); M23.51 Chronic instability of knee, right knee
CPT/HCPCS: 99213

== ENCOUNTER → 2024-05-14 08:26 | Outpatient (BNVA) | payer OTHER, SELFPAY | PROVIDERS: PCP Internal Medicine; Visit Provider Orthopaedic Surgery ==

== ENCOUNTER 2024-06-08 19:23 | Outpatient (REF) | payer OTHER, SELFPAY ==
--- NOTE | ~2024-06-08 | MR_ITS ---
EXAMINATION: MR KNEE WITHOUT CONTRAST, RIGHT CLINICAL INFORMATION: Knee pain. COMPARISON: None available. TECHNIQUE: MRI of the knee without contrast was performed using routine sequences on a high-field scanner. FINDINGS: MENISCI: Medial Meniscus: Complex tear of the posterior horn. Tear includes an oblique tear extending to the undersurface, superior surface tearing, free-edge fraying/tearing. Horizontal undersurface tear in the posterior body. Linear signal in the anterior horn extending to the articular surfaces, suspicious for a tear. Adjacent 6 mm paralabral cyst. Lateral Meniscus: Minimal degenerative fraying of the posterior root/central posterior horn. LIGAMENTS: Cruciate: Increased T2 signal in the ACL from mucoid degeneration plus/minus sprain/partial tear. Intact PCL. Collateral: Possible mild MCL sprain, with edema associated with the ligament. Intact LCL complex. EXTENSOR MECHANISM: Intact. ARTICULAR CARTILAGE/BONE: Patellofemoral Compartment: Patchy medial patellar facet chondral heterogeneity. Medial Compartment: Chondral heterogeneity and irregularity in the weightbearing medial femoral condyle. Lateral Compartment: No significant chondral loss. No fracture. No suspicious marrow signal changes. JOINT FLUID AND BURSAE: Moderate effusion. Posterior 12 x 7 mm loose body. Trace Wilburn's cyst. Mild edema in the soleus, lateral gastrocnemius muscle, perhaps strain. MR/MR knee RT wo con IMPRESSION: 1. Tear of the posterior horn, body and anterior horn of the medial meniscus. 6 mm paralabral cyst. 2. Minimal degenerative fraying of the posterior root/central posterior horn of the lateral meniscus. 3. ACL findings could reflect mucoid degeneration plus/minus sprain/partial tear. 4. Possible mild MCL sprain. 5. Mild patellofemoral and medial compartment arthritis. 6. Moderate effusion. 12 x 7 mm loose body. 7. Mild edema in the soleus and lateral gastrocnemius muscle, perhaps strain. Electronically signed by: Kleber Lazaro MD 06/21/2024 04:23 PM [facility]
== END 2024-06-08 19:24 | disposition home or self-care (01) ==
LOC: HO.MRI 19:23
PROVIDERS: PCP Internal Medicine; Visit Provider Orthopaedic Surgery
DX: M25.561 Pain in right knee (principal)
CPT/HCPCS: 73721

== ENCOUNTER 2024-06-25 14:20 | Outpatient (AMB) | payer OTHER, SELFPAY ==
--- NOTE | 2024-06-25 14:25 | A.OFFVIS_ITS ---
Vital Signs 06/25/24 14:26 Height 5 ft 9 in Weight 244 lb BMI 36.0 Intake Visit Reasons: Right knee pain and giving way Intake Note: Brodie is a 54 year old male who presents with complaints of progressively worsening right knee pain and giving way. The patient did undergo left knee arthroscopic surgery last year. He got fairly good relief from that procedure. He reports minimal discomfort in his left knee. He describes his right knee pain as sharp and severe in nature. He has failed the last 6 weeks of conservative treatment which has consisted of a home physical therapy program, Tylenol and anti-inflammatory medicines as well as muscle relaxants and topical creams. Most of the pain is along the medial aspect of his right knee. He states his right knee will give out several times per day. He has had injections in the past which gave him minimal relief. Allergies No Known Allergies Allergy (Verified 06/25/24 14:26) Medication List - Last Reconciled 06/25/24 by Kory Mcgrath MD ibuprofen 800 mg PO [lisinopril Lisinopril 10 mg po once daily] omeprazole 20 mg PO [facility] Medical History HTN (hypertension) Hx of renal calculi Surgical History Hx of repair of right rotator cuff Social History Alcohol intake: never Patient Tobacco Use Status: Never used Tobacco Physical Exam Vital Signs: BMI result Body Mass Index 36.0 Const Other: Well-nourished well-developed very friendly male awake alert and oriented x3 in no acute distress Extrem Other: Bilateral lower extremity examination shows good capillary refill, no skin lesions noted, normal sensation light touch Right knee examination shows a minimal effusion, minimal crepitus with range of motion, tenderness along his medial joint line, positive Wilfredo's test, no instability Results Reviewed Results Reviewed: Standing full weight-bearing x-rays of the patient's right knee show mild diffuse joint space narrowing, no acute bony abnormalities MRI of the patient's right knee shows mild diffuse degenerative changes as well as a tear of the medial meniscus Assessment & Plan Assessment & Plan (1) Tear of medial meniscus of right knee: Code(s): S83.241A - Other tear of medial meniscus, current injury, right knee, initial encounter Category: Medical Plan Mr. Shad Zelaya presents with progressively worsening right knee pain and mechanical symptoms due to a tear of his medial meniscus. I had a lengthy discussion with the patient regarding the treatment options. At this point the patient has failed continued non operative treatments. The risks and benefits of right knee arthroscopic surgery were discussed at length with the patient. The patient wishes to proceed with surgery. Surgery will most likely involve right knee diagnostic arthroscopy with arthroscopic partial medial meniscectomy. The patient does understand that he may not get 100% relief of his symptoms depending on the severity of his degenerative changes. The patient will be scheduled for next available date. He will follow-up as instructed. Feel free to call me at any time should questions regarding his orthopedic management arise. I spent 21 minutes in reviewing the patient's records and imaging studies, seeing the patient and documenting in the medical record. Coding Level of Care Code Est Pt Level 3 (69446) Complex EM visit Add On G2211 Diagnoses Tear of medial meniscus of right knee S83.241A
[2024-06-25 14:26] VITALS: BMI 36.0
== END 2024-06-25 14:41 | disposition home or self-care (01) ==
PROVIDERS: PCP Internal Medicine; Visit Provider Orthopaedic Surgery
DX: S83.241A Other tear of medial meniscus, current injury, right knee, initial encounter (principal)
CPT/HCPCS: 99213

== ENCOUNTER → 2024-06-25 14:20 | Outpatient (BNVA) | payer OTHER, SELFPAY | PROVIDERS: PCP Internal Medicine; Visit Provider Orthopaedic Surgery ==

== ENCOUNTER 2024-07-05 11:00 | Outpatient (REF) | payer OTHER, SELFPAY ==
[2024-07-05 12:08] LABS: Albumin Level 4.3 g/dL (3.5-5.0); Aspartate Amino Transferase 35 U/L (5-37); Bilirubin Direct 0.2 mg/dL (0.0-0.5); Bilirubin Total 0.4 mg/dL (0.0-1.0); Total Protein 7.7 g/dL (6.5-8.0)
[2024-07-05 12:22] LABS: Alanine Aminotransferase 37 U/L (0-40); Alkaline Phosphatase 85 U/L (39-117)
== END 2024-07-05 11:01 | disposition home or self-care (01) ==
LOC: HO.10HDL 11:00
PROVIDERS: Visit Provider Podiatrist
DX: B35.1 Tinea unguium (principal)
CPT/HCPCS: 36415; 80076

== ENCOUNTER 2024-08-09 07:50 | Day surgery (SDC) | payer OTHER, SELFPAY ==
[2024-08-07 09:22] VITALS: BMI 36.0
--- NOTE | 2024-08-08 10:02 | HO.ANESPROP2 ---
Documented by User: Imani Waite NP 08/08/24 10:03 HPI - Anesthesia Eval Consult details Narrative: 54yo M for Right Knee Arthroscopy, medial and lateral meniscectomy PMFSH Active Problems Active Problems: All Active Problems Tear of medial meniscus of right knee (Acute) Right knee pain (Acute) History of meniscectomy of right knee (Acute) Left knee pain (Acute) S/P lumbar microdiscectomy (Acute) Skin tag (Acute) Past Medical History Medical History (Updated 08/09/24 @ 08:10 by Carmen Lazcano RN) GERD (gastroesophageal reflux disease) HTN (hypertension) Hx of renal calculi Family History Family history of problems with anesthesia: No Surgical History Surgical History (Updated 08/09/24 @ 08:10 by Carmen Lazcano RN) History of back surgery Hx of repair of right rotator cuff History of Problems with Anesthesia: No Social History Social History Alcohol intake: never Patient Tobacco Use Status: Never used Tobacco Advance Directives: No Advance Directives Information Provided: Yes Meds Allergies Allergy/AdvReac Type Severity Reaction Status Date / Time No Known Allergies Allergy Verified 08/09/24 08:10 Active Medications: Current Medications Cefazolin Sodium/Dextrose (Ancef) 2 gm in 50 mls @ 100 mls/hr IV PREOP ONE Stop: 08/09/24 06:23 Home Medications ?Medication ?Instructions ?Recorded ?Confirmed ?Last Taken ?Type lisinopril See Rx Instructions .Route 08/10/20 06/25/24 07/21/23 History .COMPLEX hypertension ibuprofen 800 mg tablet 800 mg PO 06/25/24 06/25/24 Unknown History omeprazole 20 mg capsule,delayed 20 mg PO QAM 06/25/24 06/25/24 Unknown History release Exam Height,Weight and Vital Signs: Height 5 ft 9 in Weight 110.677 kg Assessment and Plan Assessment Anesthesia Assessment: Chart Reviewed Final Anesthetic Review Family History of Problems with Anesthesia: No History of Problems with Anesthesia: No Documented by User: Yesenia Baldwin MD 08/09/24 08:24 [facility] Past Medical History Medical History (Updated 08/09/24 @ 08:10 by Carmen Lazcano, RN) GERD (gastroesophageal reflux disease) HTN (hypertension) Hx of renal calculi Surgical History Surgical History (Updated 08/09/24 @ 08:10 by Carmen Lazcano, RN) History of back surgery Hx of repair of right rotator cuff Social History Social History Alcohol intake: never Patient Tobacco Use Status: Never used Tobacco Advance Directives: No Advance Directives Information Provided: Yes Meds Allergies Allergy/AdvReac Type Severity Reaction Status Date / Time No Known Allergies Allergy Verified 08/09/24 08:10 Home Medications ?Medication ?Instructions ?Recorded ?Confirmed ?Last Taken ?Type lisinopril See Rx Instructions .Route 08/10/20 06/25/24 07/21/23 History .COMPLEX hypertension ibuprofen 800 mg tablet 800 mg PO 06/25/24 06/25/24 Unknown History omeprazole 20 mg capsule,delayed 20 mg PO QAM 06/25/24 06/25/24 Unknown History release Exam Airway Mallampati Class: II TM Dist: >3cm Neck ROM: Full Heart: rrr Lungs: cta Assessment and Plan Assessment Anesthesia Assessment: Anesthesia Plan Discussed Final Anesthetic Review NPO: Yes ASA Class: II Final Preanesthetic Review: No Changes in Pt Med Stat, Meds/Allgs Chart Reviewed and Consent Obtained/Reviewed Patient Risk: Low Procedure Risk: Low Anesthetic Plan Anesthetic Plan: GA Disposition: Standard PACU
[2024-08-09] VITALS (7 sets, daily range): BP systolic 119–142; BP diastolic 57–80; PULSE 79–89; RESP 12–16; TEMP 36.1–36.9; O2SAT 91–98; BMI 35.6
[2024-08-09] MEDS: Lactated Ringers 1,000 ML 100 ML IVCONT (08:35)
[2024-08-09] MEDS: Ketorolac Tromethamine 15 MG/ML VIAL IVPUSH (10:03)
--- NOTE | 2024-08-09 10:03 | P.BOP_ITS ---
Brief Operative Note Date of Service: 08/09/24 Pre-op diagnosis: Right knee medial meniscus tear, right knee degenerative joint disease Post-op diagnosis: same Procedure: Right knee diagnostic arthroscopy with right knee arthroscopic partial medial meniscectomy, right knee arthroscopic chondroplasty of the undersurface of the patella as well as the medial femoral condyle Implants: none Surgeon: Kory Mcgrath MD Anesthesia: GLMA Was an Tar Heater Operator used for this Procedure?: No Estimated blood loss (mL): 10 Pathology: none sent Condition: stable Disposition: PACU
--- NOTE | 2024-08-09 10:04 | W.PM.OPN ---
Operative Note Operative Note Date of Service: 08/09/24 Narrative: After the patient was identified as Brodie Zelaya and his right knee was initialed by myself they were brought to the operating room where general anesthesia was induced by the anesthesiologist in routine fashion. The patient was given 2 g of IV Ancef for infection prophylaxis. A formal time-out was completed. The patient's right lower extremity was prepped and draped in sterile fashion. Marcaine with epinephrine was injected into the planned incision sites as well as their right knee joint. A # 11 scalpel blade was used to make an anterolateral portal 1 cm proximal to the joint line and 1 cm lateral to the patellar tendon. Blunt trocar technique was used into the suprapatellar pouch with the knee in extension. Diagnostic arthroscopy showed multiple bands of thickened plica which would be excised at the end of the procedure. There were no loose bodies or abnormalities found in either the medial or lateral gutters. There were diffuse grades 1 and 2 degenerative changes of the undersurface of the patella as well as grade 1 degenerative changes of the trochlear groove. The patient's knee was flexed to 45 degrees and a valgus force was placed upon it. The medial compartment was entered. An anteromedial portal was made 1 cm proximal to the joint line and 1 cm medial to the patellar tendon. Probing of the medial meniscus showed a radial tear of the anterior horn. A partial medial meniscectomy was performed using the arthroscopic shaver. Following the partial meniscectomy the remainder of the meniscus tissue was stable. There were diffuse grades 1 and 2 degenerative changes of the medial femoral condyle as well as diffuse grade 1 degenerative changes of the medial tibial plateau. The articular surface of the medial femoral condyle was made smooth using the arthroscopic shaver. The articular surface of the medial tibial plateau was already smooth so no chondroplasty was indicated. The patient's knee was then placed into a neutral position. There was no injury to the anterior cruciate ligament. The patient's knee was then placed into the figure of 4 position and the lateral compartment was entered. There were minimal degenerative changes of the lateral femoral condyle and lateral tibial plateau. There was no evidence of lateral meniscus tearing. The patient's knee was once again brought into extension and the suprapatellar pouch was entered. The arthroscopic shaver and the ArthroCare Wand were used to excise the thickened bands of plica. The undersurface of the patella was then made smooth using the arthroscopic shaver. The articular surface of the trochlear groove was already smooth so no chondroplasty was indicated. The knee joint was irrigated and then drained. All arthroscopic instruments were removed. The 2 portals were closed with 3-0 nylon interrupted suture. The knee joint was injected with Marcaine. Dry sterile dressing and Vinay bandages were placed over the patient's knee. The patient was awoken and extubated in the operating room. They were transferred to the recovery room in stable condition.
[2024-08-09] MEDS: cefTRIAXone sodium 1 GM VIAL IVPUSH (10:11)
[2024-08-09] MEDS: oxyCODONE HCl Immed Release 5 MG TABLET PO (10:40)
== END 2024-08-09 11:30 | disposition home or self-care (01) ==
PROVIDERS: PCP Internal Medicine; Visit Provider Orthopaedic Surgery
PROC: (CPT 29870; principal; 2024-08-09 09:00)
DX: S83.241A Other tear of medial meniscus, current injury, right knee, initial encounter (principal); M17.11 Unilateral primary osteoarthritis, right knee; M23.51 Chronic instability of knee, right knee; M67.51 Plica syndrome, right knee; X58.XXXA Exposure to other specified factors, initial encounter; Y93.9 Activity, unspecified; Y92.9 Unspecified place or not applicable; Y99.9 Unspecified external cause status; I10 Essential (primary) hypertension; Z87.442 Personal history of urinary calculi; Z79.1 Long term (current) use of non-steroidal anti-inflammatories (NSAID); Z79.899 Other long term (current) drug therapy; Z98.890 Other specified postprocedural states
CPT/HCPCS: 29881; J0131; J0171; J0690; J0696; J1100; J1885; J2003; J2250; J2405; J2704; J2795; J3010

== ENCOUNTER → 2024-08-09 07:50 | Outpatient (BNV) | payer OTHER, SELFPAY | PROVIDERS: PCP Internal Medicine; Visit Provider Orthopaedic Surgery | DX: S83.241A Other tear of medial meniscus, current injury, right knee, initial encounter (principal) | CPT/HCPCS: 29881 ==

== ENCOUNTER 2024-08-22 13:07 | Outpatient (AMB) | payer OTHER, SELFPAY ==
--- NOTE | 2024-08-22 13:14 | MHC.OFFVIS ---
Vital Signs 08/22/24 13:21 Height 5 ft 9 in Weight 241 lb BMI 35.6 Intake Visit Reasons: PO RT knee 08/09/24 Intake Note: Brodie is a 54 year old male who presents today post-operatively s/p right knee on 08/09/[address] Mcgrath. Patient reports -. He is taking - for pain. Stitches removed in office today and stitches applied. Allergies No Known Allergies Allergy (Verified 08/22/24 13:22) Medication List - Last Reconciled 08/22/24 by José Nicole PA-C ibuprofen 800 mg PO [lisinopril Lisinopril 10 mg po once daily] omeprazole 20 mg PO QAM HPI HPI PO RT knee 08/09/24 DR: Details: 54-year-old gentleman presents to office today for a follow-up status post right knee arthroscopy with Dr. Mcgrath on 08/09/2024. Is doing well postop. has minimal discomfort. No concerns today. [facility] Medical History (Updated 08/09/24 @ 08:10 by Carmen Lazcano RN) GERD (gastroesophageal reflux disease) HTN (hypertension) Hx of renal calculi Surgical History (Updated 08/09/24 @ 08:10 by Carmen Lazcano RN) History of back surgery Hx of repair of right rotator cuff Social History Alcohol intake: never Patient Tobacco Use Status: Never used Tobacco Review of Systems Const All systems reviewed & are unremarkable except as noted in HPI and below Physical Exam Vital Signs: BMI result Body Mass Index 35.6 Extrem Other: Right knee incision clean dry and intact no erythema no drainage or joint effusion. Full range of motion. Calf supple nontender neurovascularly intact. Results Reviewed Results Reviewed: Brief Operative Note Date of Service: 08/09/24 Pre-op diagnosis: Right knee medial meniscus tear, right knee degenerative joint disease Post-op diagnosis: same Procedure: Right knee diagnostic arthroscopy with right knee arthroscopic partial medial meniscectomy, right knee arthroscopic chondroplasty of the undersurface of the patella as well as the medial femoral condyle Implants: none Surgeon: Kory Mcgrath MD Assessment & Plan Assessment & Plan (1) Tear of medial meniscus of right knee: Code(s): S83.241A - Other tear of medial meniscus, current injury, right knee, initial encounter Category: Medical Plan: Sutures removed today Steri-Strips applied. Educated him on avoiding deep bending kneeling squatting twisting or pivoting for the next 4 weeks to avoid flare-ups. I did recommend a course of physical therapy which she would like to hold off on at this time as he has been through this process before and is familiar with exercises postop. 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 He will see us back in [address] Mcgrath sooner if needed. Coding Level of Care Code Global (87137) Diagnoses Tear of medial meniscus of right knee S83.241A
[2024-08-22 13:21] VITALS: BMI 35.6
--- OUTSIDE RECORDS SUMMARY | 2024-08-22 16:55 | XMS_ITS ---
Author Organization [facility] Karen niraj Teddy Address [address] [place] [address] Care Team Providers Care Mainspring Reverse Winder Name Role Phone Dustin García MD Primary Care Provider Shannon Malhotra [phone] REASON FOR VISIT Labs Encounters Encounter Location Date Provider Diagnosis [address] [phone] 07/08/2024 Shannon Hancock Plan Of Treatment Next Appt Details Provider Name:Shannon fields, 09/17/2024 03:45:00 PM, [address] [place] [address], [phone], Progress Notes * Jorge Alberto KULKARNIroDOB:1970 ( 54 yo M)Acc No.[id number]:07/08/2024 Patient:?Brodie KULKARNI :1970???Age:54 Y???Sex:Male Address:[address] [place] [address] * true * Date:? Generated for Printi francesca/Rigoberto/eTransmitting on:?08/22/2024 04:55 PM EST
--- OUTSIDE RECORDS SUMMARY | 2024-08-22 16:55 | XMS_ITS | Patient Health Record ---
Author Organization [facility] Address [address] [place] [address] Care Team Providers Care Flat Hammerer Name Role Phone Dustin García MD Primary Care Provider Casper Mcwilliams Unavailable [phone] REASON FOR REFERRAL No Information MEDICATIONS Medication SIG (Take, Route, Frequency, Duration) Notes Start Date End Date Status Lisinopril Active Motrin Active IMMUNIZATIONS Vaccine Route Administration Date Status Comme nts Influenza Unknown 05/24/2020 Administered SOCIAL HISTORY Tobacco Use: Social History Observation Description Date Details (start date - stop date) Never Smoker NA - NA Sex Assigned At : Social History Observation Description Sex Assigned At Unknown Tobacco Use/Smoking Question Answer Notes Patient is a nonsmoker Alcohol Screen Question Answer Notes Did you have a drink containing alcohol in the p ast year? Yes Points 0 Interpretation Negative PROBLEMS Problem Type ICD Code Onset Dates Problem Status W/U Status Risk SNOMED Code Notes Problem Encounter for screening for malignant neoplasm of colon (Z12.11) Active confirmed Screening for malignant neoplasm of colon (739079427) Problem Preprocedural examination (Z01.818) Active confirmed Preprocedural examination (618230088875685 ) PLAN OF TREATMENT Pending Test Test Name Order Date Pathology 08/10/2020 Future Test Test Name Order Date COLONOSCOPY 07/07/2020 Insurance Providers Payer Name Payer Address Payer Phone Subscriber Number Group Number Insured Name Patient Relationship to Insured Coverage Start Date Coverage End Date [facility] [address] [place] [phone] [id number] SOFIA KULKARNI Self - patient is the insured MEDICAL (GENERAL) HISTORY Medical History History ICD Code Hypertension Denies OK,DM,CVA,Lung disease,renal dise ase Kidney stones Surgical History Surgery Date(Month/Year)
--- OUTSIDE RECORDS SUMMARY | 2024-08-22 16:55 | XMS_ITS ---
Author Organization Dustin García MD Address [address] [place], [place] [id number] Care Team Providers Care Pony Edger Name Role Phone Dustin García Primary Care [...] Ibuprofen 800 MG TAKE 1 TABLET [facility] THREE TIMES DAILY EVERY 8 HOURS for 30 Active ProAir HFA 108 (90 Base) MCG/ACT 1 puff as needed Inhalation every 4 hrs for 30 days 09/20/2019 Not-Taking PARoxetine HCl 40 MG TAKE 1 TABLET BY [facility] EVERY DAY IN THE MORNING Orally Once a day for 90 days Active Lisinopril-hydroCHLOROthi azide 10-12.5 MG TAKE 1 TABLET BY MOUTH DAILY Orally Once a day for 90 days Active Omeprazole 20 MG TAKE 1 CAPSULE BY [facility] EVERY DAY 30 MINUTES BEFORE BREAKFAST for [...] Location Date Provider Diagnosis Dustin García MD [address] [place] [phone] 08/22/2024 Dustin García Unintended weight gain R63.5 [...] HCl 40 MG TAKE 1 TABLET BY [facility] EVERY DAY IN THE MORNING Orally Once a day for 90 days Lisinopril-hydroCHLOROthiazi de 10-12.5 MG TAKE 1 TABLET BY MOUTH DAILY Orally Once a day for 90 days Treatment Notes Assessment Notes Unintended weight gain discussed the med s and and he doesn't want to stay on meds Next Appt Details Follow Up: 6 Months, Reason: complete Provider Name:Dustin montague, 10/03/2024 07:15:00 AM, [address] [place] [address], [address], [phone], Provider Name:Dustin montague, 10/10/2024 08:00:00 AM, [address] [place] [address], [place] [address], [place], [place], [phone], Progress Notes * Brodie KULKARNI ADOB:1970 (54 yo M)Acc No.[id number]:08/22/2024 Progress Notes Patient:?Brodie KULKARNI Provider:?Dustin García MD :1970???Age:54 Y???Sex:Male Duong e:08/22/2024 Address:[address], [id number] Subjective: * Chief Complaints: * ???1. Discuss wt meds. * HPI: ???Symptom(s):?patient is a 54 yo male here for follow up to discuss weight meds. . walking well. had recent knee surgery. * ROS:?General/Constitutional:?Denies?Chills.?Denies?Fatigue.?Denies?Fever.?Denies?Headache.?ENT:?Patient denies?decreased sense of smell, any loss of taste, sore throat.?Denies?Sore throat.?Respiratory:?Denies?Cough.?Denies?Shortness of breath at rest.?Denies?Shortness of breath with exertion.?Gastrointestinal:?Denies?Diarrhea.?Denies?Nausea.?Musculoskeletal:?Patient denies?muscle aches.?Peripheral Vascular:?Patient denies?red and blue toes.? * Medical History:?Colonoscopy done 08/10/[address] Novak (next pending biopsy). * Medications:?Taking Albutero l Sulfate HFA 108 (90 Base) MCG/ACT Aerosol Solution 1 puff as needed Inhalation every 4 hrs , Taking Sildenafil Citrate 50 MG Tablet TAKE ONE TABLET BY MOUTH EVERY DAY NEEDED , Taking PARoxetine HCl 40 MG Tablet TAKE 1 TABLET BY MOUTH EVERY DAY IN THE MORNING , Taking Lisinopril-hydroCHLOROthiazide 10-12.5 MG Tablet TAKE 1 TABLET BY MOUTH DAILY , Taking Omeprazole 20 MG Capsule Delayed Release TAKE 1 CAPSULE BY MOUTH EVERY DAY 30 MINUTES BEFORE BREAKFAST , Taking Ibuprofen 800 MG Tablet TAKE 1 TABLET BY MOUTH THREE TIMES DAILY EVERY 8 HOURS , Not-Taking/PRN Fluticasone Propionate 50 MCG/ACT Suspension SHAKE LIQUID AND USE 1 SPRAY IN EACH NOSTRIL EVERY DAY , Not-Taking/PRN Azelastine HCl 0.05 % Solution 1 drop into affected eye Ophthalmic Twice a day , Not-Taking/PRN Tums 500 MG Tablet Chewable 1 tablet Orally Once a day , Not-Taking/PRN ProAir HFA 108 (90 Base) MCG/ACT Aerosol Solution 1 puff as needed Inhalation every 4 hrs , Discontinued traMADol HCl 50 MG Tablet 1 tablet as needed Orally every 8 hrs as needed , Medication List reviewed and reconciled with the patient * Allergies:?N.K.D.A. Objective: * Vitals:?Ht: 70, Wt: 249, BMI :35.72, BP:130/72, Wt-k.95. weight is up 10 pounds since 04-09-24. * Examination: ???General Examination: ?GENERAL APPEARANCE:?pleasant, well nourished, well developed, in no acute distress.?HEAD:?normocephalic.?SKIN:?good turgor.?HEART:?no murmurs, rubs, gallops, regular rate and rhythm.?LUNGS:?no wheezes, rales, rhonchi, good air movement, clear to auscultation bilaterally.? Assessment: * Assessment: 1.?Unintended weight gain - R63.5 (Primary)???2.?Essential hypertension - I10???3.?Panic attack - F41.0??? Plan: * Treatment: 2.?Essential hypertension? Continue Lisinopril-hydroCHLOROthiazide Tablet, 10-12.5 MG, TAKE 1 TABLET BY MOUTH DAILY, Orally, Once a day, 90 days, 90, Refills 3.?? 3.?Panic attack? Continue PARoxetine HCl Tablet, 40 MG, TAKE 1 TABLET BY MOUTH EVERY DAY IN THE MORNING, Orally, Once a day, 90 days, 90, Refills 3.?? * Follow Up:?6 Months (Reason: complete) * * The named appointment provid er may or may not be the originator of this progress note, and it is not deemed complete until electronically signed by the appointment provider. Sign off status: Pending * Provider:?Dustin García MD Date:?0 08/22/2024 Generated for Jose ma/Rigoberto/Demar on:?08/22/2024 04:54 PM EST History and Physical Notes * HPI [...]
--- OUTSIDE RECORDS SUMMARY | 2024-08-22 16:55 | XMS_ITS ---
Author Organization Dustin García MD Address [address] [place], [place] [phone] Care Team Providers Care Upholstery Bundler Name Role Phone Dustin García Primary Care [...] Provider Specialty Orthopedic S urgery General Notes Beeln Landaverde 10:39:51 AM EDT > info faxed x-rays pending to be done at [facility] , Belen Landaverde 04/11/2024 01:27:38 PM EDT > spoke with Ortho regrading appt. X-ray results are being forwarded to the provider for a sooner appt , Belen Landaverde 04/12/2024 11:20:59 AM EDT > spoe with [facility] Ortho, they said they are trying [...] 20 MG TAKE 1 CAPSULE BY [facility] EVERY DAY 30 MINUTES BEFORE BREAKFAST for 90 Active PARoxetine HCl 40 MG TAKE 1 TABLET BY [facility] EVERY DAY IN THE MORNING for [...] kg/m2 04/09/2024 weight is down 8 pounds [facility] 01-12-24 Encounters Encounter Location Date Provider Diagnosis Dustin García MD [address] [place], [place] [phone] 04/09/2024 Dustin García Encounter for immunization Z23 and Acute torn meniscus S83.209A Assessments Encounter Date Diagnosis (ICD Code) Assessment Notes Treatment Notes Treatment Clinical Notes Section Notes 04/09/2024 Encounter for immunization (ICD-10 - Z23) flu vaccine administed 04/09/2024 Acute torn meniscus (ICD-10 - S83.209A) referral to dr queen/ x-ray order faxed to both [facility] patient Reg numbers. patient verbalized understanding [...] queen / x-ray order faxed to both [facility] patient Reg numbers. patient verbalized understanding of medication and directions for use Pending Test Test Name Order Date XR knee RT 3V 04/09/2024 Referrals Referral Date Details 04/09/2024 04/09/2024, acute to rn meniscus please booked patient for a soon appointment Right knee , [facility] Next Appt Details Provider Name:Dustin montague, 10/03/2024 07:15:00 AM, [address] [place] [address], [address], [place], [place], [phone], Provider Name:Dustin montague, 10/10/2024 08:00:00 AM, [address] [place] [address], [address], [place], [place], [phone], Progress Notes * Brodie KULKARNI ADOB:1970 (53 yo M)Acc No.[id number]:04/09/2024 Progress Notes Patient:?Brodie Kulkarni Provider:?Dustin García MD :1970???Age:53 Y???Sex:Male Duong e:04/09/2024 Address:[address], [facility] [id number] Subjective: * Chief Complaints: * ???Right knee pain x 10 days * HPI: ???Symptom(s):? patient is a 53 yo male here as emergency for right knee pain. has been hiking and walking for 3 weeks. * ROS:?General/Constitutional:?Denies?Chills.?Denies?Fatigue.?Denies?Fever.?Denies?Headache.?ENT:?Patient denies?decreased sense of smell , any loss of taste , sore throat.?Respiratory:?Denies?Cough.?Denies?Shortness of breath at rest.?Denies?Shortness of breath with exertion.?Gastrointestinal:?Denies?Diarrhea.?Denies?Nausea.?Musculoskeletal:?Patient denies?muscle aches.?Patient complaining of?c/o left knee pain? started after walking.?Peripheral Vascular:?Patient denies?red and blue toes.? * Medical History:? * Surgical History:? * Hospitalization/Major Diagno stic Procedure:? * Medications:?TakingAlbuterol Sulfate HFA 108 (90 Base) MCG/ACT Aerosol [...] hrsMedication List reviewed and reconciled with the patientNot-Taking/PRN Fluticasone Propionate 50 MCG/ACT Suspension SHAKE LIQUID [...] reviewed and reconciled with the patient * Allergies:?N.K.D.A.yes[Aller gies Verified] Objective: * Vitals:?Ht: 70, Wt:239, BMI: 34.29, BP:158/70, Repeat BP:120/90 weight is down 8 pounds since 01-12-24. * Examination: ???General Examination: ?GENERAL APPEARANCE:? alert in acute distress from knee.?MUSCULOSKELETAL:? abnormal with swellin and tender rt knee.? Assessment: * Assessment: 1.?Acute torn meniscus - S83 .209A (Primary)?2.?Encounter for immunization - Z23? Plan: * Treatment: Notes: referral to dr queen/ x-ray order faxed to both [facility] patient Reg numbers. patient verbalized understanding of medication and directions for use?&#1 60;? Referral To:[facility]??Orthopedic Surgery ?Reason:acute torn meniscus please booked patient for a soon appointment Right knee 2.?Encounter for immunization? Notes: flu vaccine administed?? * Immunizations:? Fluarix Quadrivalent - 150 : 0.5 mL (Dose No:1) (Route: Intramuscular) given by Valencia Rodgers on Left Deltoid * Procedure Codes:?68885 FLU V AC NO PRSV 4 AKSHAT 3 YRS+[id number] IMMUNIZATION ADMIN * Preventive Medicine:? ??Immunizations:?Influenza?Have you had a flu shot since the most recent March 24??Yes.? * * Sign off status: Completed true * Provider:?Dustin García MD Date:?0 04/09/2024 Generated for Jose ma/Rigoberto/Demar on:?08/22/2024 04:55 PM EST History and Physical Notes * [...]
--- OUTSIDE RECORDS SUMMARY | 2024-08-22 16:55 | XMS_ITS ---
Author Organization [facility] Address [address] [place] [address] Care Team Providers Care Budget And Policy Analyst Name Role Phone Dustin García MD Primary Care Provider Shannon Malhotra Unavailable [phone] Allergies No Known Allergies REASON FOR VISIT Pcp-05/16, Fungal Nails, Skin Problem Medications Medication SIG (Take, Route, Frequency, Duration) Notes Start Date End Date Status Ciclopirox Olamine 0.77 % 1 application Externally Twice a day to skin of feet including between the toes for 30 days Active Lisinopril 10 MG 1 tablet Orally Once a day Active Motrin Active LamISIL 250 MG 1 tablet Orally Once a day for 30 days Active Social History Tobacco Use: Social History Observation Description Date Details (start date - stop date) Never Smoker NA - NA Tobacco use other than smoking: Question Answer Notes Are you an other tobacco user? No Tobacco Control (Standard) Question Answer Notes Tobacco use: Nonsmoker Additional Findings: Tobacco non-user Current no nsmoker AUDIT-C (Standard) Question Answer Notes Did you have a drink containing alcohol in the p ast year? No Points 0 Interpretation Negative Vital Signs Height 6ef77mm in 06/26/2024 Weight 240 lbs 06/26/2024 BMI 34.43 kg/m2 06/26/2024 Encounters Encounter Location Date Provider Diagnosis [facility] [address] [place] [address] 06/26/2024 Shannon Hancock Pain in right toe(s) M79.674 ; Onychomycosis B35.1 ; Pain in left toe(s) M79.675 and Tinea pedis of both feet B35.3 Assessments Encounter Date Diagnosis (ICD Code) Assessment Notes Treatment Notes Treatment Clinical Notes Section Notes 06/26/2024 Pain in right toe(s) (ICD-10 - M79.674) 06/26/2024 Onychomycosis (ICD-10 - B35.1) 06/26/2024 Pain in left toe(s) (ICD-10 - M79.675) 06/26/2024 Tinea pedis of both feet (ICD-10 - B35.3) Plan Of Treatment Medication Medication Name Sig Start Date Stop Date Notes Ciclopirox Olamine 0.77 % 1 application Externally Twice a day to skin of feet including between the toes for 30 days LamISIL 250 MG 1 tablet Orally Once a day for 30 days Pending Test Test Name Order Date *Liver Function Test (LFT) 06/26/2024 Next Appt Details Follow Up: 2-3 Months, Reaso n: Provider Name:Shannon fields, 09/17/2024 03:45:00 PM, [address] [place] [address], [phone], Progress Notes * Jorge Alberto KULKARNIroDOB:1970 ( 54 yo M)Acc No.[id number]:06/26/2024 Progress Notes Patient:?Brodie KULKARNI Provider:?Shannon Hancock DPM :1970???Age:54 Y???Sex:Male Duong e:06/26/2024 Address:[address], [place], [id number] Pcp:Dustin García MD Subjective: * Chief Complaints: * ???Pcp-05/16Fungal NailsSkin Problem * HPI: ???Painful Nails:?Nature:?aching, tender, discolored, thick.?Location:?Both feet.?Duration:?several years.?Course:?worse.?Aggravated by:?shoegear causing difficulty standing/walking.?Treatments:?none.?Skin problems:?Nature:?scaling , redness.?Location:?B/L .?Course:?worse.? * ROS:?General/Constitutional:?Nausea?denies.?Vomiting?denies.?Hunger Thirst?denies.?Loss appetite?denies.?Chills?denies.?Fatigue?denies.?Fever?denies.?Night Sweats?denies.?Unexplained weight loss?denies.?Unexplained weight gain?denies.?HEENTM:?Dentures?denies.?Dizziness?denies.?Glasses/contacts?admits.?Retinopathy?de nies.?Blurred/double vision?denies.?TMJ?denies.?Discharge/drainage?denies.?Implants?denies.?Sore throat?denies.?Dental implants?denies.?Hard of hearing ?denies.?Difficulty chewing/swallowing/speaking?denies.?Nose bleeds?denies.?Sore mouth?denies.?Respiratory:?On Oxygen?denies.?Pneumonia/pleurisy?denies.?Bronchitis?denies.?Emphysema?denies.?C oughing?denies.?Cough blood?denies.?Shortness of breath?denies.?Wheezing?denies.?Cardiovascular:?Pacemaker?denies.?MVP?denies.?WPW?denies.?CHF?denies.?Heart attack?denies.?Septal defect?denies.?Rapid beat?denies.?Chest pain ?denies.?Atrial Fib.?denies.?Murmur/Palpitations?denies.?Gastrointestinal:?Hemorrhoids?denies.?Stomach/Abdominal pain?denies.?Dark blood stool?denies.?Irritable bowel ?denies.?Constipation?denies.?Diarrhea?denies.?Hematology:?Swelling?denies.?Clots?denies.?Varicose Veins?denies.?Bruising?denies.?Bleeding problem?denies.?Genitourinary:?Blood urine?denies.?Frequent/Painfu/urination/bladder control?denies.?Kidney stones?admits.?Infection (UTI)?denies.?Nephropathy?denies.?sex trans dis (STD)?denies.?Prostate?denies.?Musculoskeletal:?Hammertoes?denies.?Bunions?denies.?Back Pain?denies.?Muscle Cramps/ Resting?denies.?Muscle cramps / walking?denies.?Generalized aches and pains?denies.?Weakness?denies.?Integ.:?Odell?denies.?Scars?denies.?Corns/calluses?denies.?Ingrown nails?denies.?Painful nails?denies.?Open Sores?denies.?Rashes?denies.?Neurologic:?Difficulty sleeping?denies.?Brain disorder?denies.?Numbness?denies.?Balance trouble?denies.?Confusion?denies.?Fainting/blackouts?denies.?Tingling?denies.?Tr emors?denies.? * Medical History:? * Surgical History:?back surge ry 2021knee surgery 2022 * Hospitalization/Major Diagno stic Procedure:?Denies Past Hospitalization * Family History:?Mother: unkn own, diagnosed with Diabetic - NIDDM, Family history of arthritis.?Father: unknown, diagnosed with Unspecified essential hypertension, Unspecified heart disease, Unspecified cerebral artery occlusion with cerebral infarction.? * Social History:?Tobacco Use:?Tobacco use other than smoking?Are you an other tobacco user??No ?Tobacco Control (Standard)?Tobacco use:?Nonsmoker ?Additional Findings: Tobacco non-user?Current nonsmoker ???Drugs/Alcohol:?Drugs?Have you used drugs other than those for medical reasons in the past 12 months??No ???Miscellaneous:?Caffeine: yes, frequency:. ?Marital status: . ???Drug/Alcohol:?AUDIT-C (Standard)?Did you have a drink containing alcohol in the past year??No ?Points?0 ?Interpretation?Negative * Medications:?TakingMotrin Li sinopril 10 MG Tablet 1 tablet Orally Once a day Medication List reviewed and reconciled with the patientTaking Motrin Taking Lisinopril 10 MG Tablet 1 tablet Orally Once a day Medication List reviewed and reconciled with the patient * Allergies:?N.K.D.A.yes[Aller gies Verified] Objective: * Vitals:?Ht:3ck15fa, Wt:240, BMI:34.43, Shoe size: 10.5, Ht-cm: 177.8 cm, Wt-k.86 kg. * Examination: ???Nails: ?NAILS are:?Elongated, overgrown, dystrophic, lytic, greater than 3mm thick, discolored and friable with crumbly malodorous subungual debris, with pain on palpation, 1-5 B/L.?General Examination: ?GENERAL APPEARANCE:?Reveals a pleasant, alert, well-nourished, well- developed, well hydrated individual, who demonstrates proper attention to hygiene/body habitus, and is in no acute distress, Pt serves as own?historian for office visit today.?ORIENTED:?person, place, and time.?Neurological: ?SENSORY:?Neurological exam reveals intact sensorium, pain sensation normal, vibration sensation intact, pinprick sensation is normal in the lower extremities, Pt denies, anesthesia, burning, paresthesia, tingling, B/L.?DEEP TENDON REFLEXES:?Achilles, 2/4, B/L.?Vascular: ?DP PULSES(B):?3/4, B/L.?PT PULSES(B):?3/4, B/L.?CAPILLARY FILL TIME:?immediate, all digits, B/L.?TROPHIC CONDITION-TEXTURE/ELASTICITY/TURGOR/HAIR GROWTH(B):?normal, B/L.?TEMPERTURE GRADIENT(C):?warm to cool, proximal to distal, B/L.?PIGMENTATION:?normal, B/L.?EDEMA(C):?absent, B/L.?Dermatologic: ?SKIN FINDINGS:?Skin shows sign(s) of, erythema, scaling, in a moccasin fashion, no fissure(s) present, B/L.?Orthopedic: ?MUSCLE STRENGTH:?5/5 all groups in a symmetrical fashion , B/L.? Assessment: * Assessment: 1.?Pain in right toe(s) - M7 9.674???2.?Onychomycosis - B35.1 (Primary)???3.?Pain in left toe(s) - M79.675???4.?Tinea pedis of both feet - B35.3???Specify :Acute problem, Uncomplicated (3),Rx drug management (4)??? Plan: * Treatment: 2.?Tinea pedis of both feet? Start Ciclopirox Olamine Cream, 0.77 %, 1 application, Externally, Twice a day to skin of feet including between the toes, 30 days, 60, Refills 2.?? * Procedure Codes:? * Preventive Medicine:? ??Counseling:?Discussion:?-03: Office or other outpatient visit for the evaluation and management of a new patient, which required a medically appropriate history and/or examination and LOW level of DECISION MAKING for: 1 STABLE ACUTE UNCOMPLICATED PROBLEM, 2 OR MORE MINOR PROBLEMS, OR 1 STABLE CHRONIC PROBLEM, THAT POSE(S) A LOW RISK FOR MORBIDITY/MORTALITY. The visit on the day of the encounter encompassed interpreting the data and educating the patient as to the nature of their condition, treatment options available according to their individual PMH, meds, allergies, and overall health/living conditions, as well as any potential risks or complications that may occur from a failure to adhere to, and participate in, the recommended course of therapy. The discussion included a complete verbal, and/or written explanation of the examination results, any x-rays taken, the proposed diagnosis, and outline of the treatment plan. A schedule for future care needs was also explained. The patient verbalized an understanding of the instructions at this time and agreed to be an active participant in their treatment. If the patient should think of any questions or concerns after the visit, I have encouraged the patient to call the office.?Fungal Nail Counseling:?The Pt prefers PO treatment, An LFT was ordered in preparation for Lamisil prescription therapy, The patient was counseled on the diagnosis, potential etiologies (including, but not limited to, environmental factors, genetic, immune deficiency), and the multiple treatment options for Onychomycosis. We discussed the risks and benefits of each option from performing no treatment, to ultraviolet light shoe treatment, to laser nail treatment, to applying topical antifungals, to taking oral antifungal medication, to surgical removal of the involved nail(s) with or without performing a matricectomy, or any combination thereof. We discussed the advantages and disadvantages of each of possible treatment and importance for adherence to all the recommended therapies for optimum success. This includes the necessity for weekly emery board self nail home debridements, and control the nail and skin environment as much as possible by only using a fresh, dry pair of shoes/socks each day, as well as keeping the skin as dry as possible through the use of sprays/powders if necessary. The patient was instructed to discard the emery board after use to prevent reinfection of the involved nail(s). We discussed the mycological and visual clinical effectiveness of topical vs oral antifungal treatments as well as each ones potential side effects and/or any patient- specific medication interactions. We discussed the reasons behind the important requirement of regular liver function testing with oral antifungal therapy for safety. Patient questions regarding use, dosage, successful outcomes, blood tests, and possible pharmaceutical interactions were reviewed and the patient verbalized that all answers were clearly understood.?Tinea Pedis:?The patient was counseled on the diagnosis, potential etiologies, and treatment options for their skin condition. We discussed the risks and benefits of each option from performing no treatment, to utilizing OTC topical skin creams, prescription topical creams, customized compounded topical medications, and, if necessary, to utilize oral antifungal therapy. We discussed the advantages and disadvantages of each possible treatment and importance for adherence to all the recommended therapies for optimum success and avoid potential complications such as open sore/infection/possible hospitalization. We discussed the potential effectiveness of each topical preparation as well as each ones possible side effects and/or patient medication interactions if oral therapy is selected. Patient questions re: the advantages and disadvantages of each treatment choice, medication use/dosage, successful outcomes, and application consistency were reviewed and the patient verbalized that all answers were clearly understood. The patient was told they can help alleviate symptoms by utilizing moisture absorbant innersoles with activated charcoal and baking soda, applying antifungal sprays daily, aerating toe web spaces at night by putting cotton or lambs wool between the toes, alternating shoe gear daily if possible so they can dry out, changing socks at least once during the day, wearing well-ventilated shoes or sandals. The patient has decided to apply antifungal skin creams to their feet as directed. Rx was sent to their pharmacy at the time of visit.? * Follow Up:?2-3 Months * Images: * Sign off status: Completed true * Provider:?Shannon Hancock DPM Date:?10/2023 Generated for Jose ma/Rigoberto/Demar on:?08/22/2024 04:55 PM EST History and Physical Notes * HPI (History of Present Illness) Category Sub-Category Detail Notes Category Not es Painful Nails Aggravated by: shoegear causing difficulty standing/walking Course: worse Duration: several years Location: Both feet Nature: aching, tender, disc olored, thick Treatments: none Skin problems Nature: scaling , redness Location: B/L Course: worse Examination Category Sub-Category Detail Notes Category Not es Neurological SENSORY: Neurological exa m reveals intact sensorium, pain sensation normal, vibration sensation intact, pinprick sensation is normal in the lower extremities, Pt denies, anesthesia, burning, paresthesia, tingling, B/L DEEP TENDON REFLEXES: Achilles, 2/4, B/L Dermatologic SKIN FINDINGS: Skin shows sign( s) of, erythema, scaling, in a moccasin fashion, no fissure(s) present, B/L Orthopedic MUSCLE STRENGTH: 5/5 all groups in a symm etrical fashion , B/L General Examination GENERAL APPEARANCE: Reveals a pleasant, alert, well- nourished, well-developed, well hydrated individual, who demonstrates proper attention to hygiene/body habitus, and is in no acute distress, Pt serves as own historian for office visit today ORIENTED: person, place, and t jeanine Vascular DP PULSES (B): 3/4, B/L PT PULSES (B): 3/4, B/L CAPILLARY FILL TIME: immediate, all digi ts, B/L TEMPERTURE GRADIENT (C): warm to cool, p roximal to distal, B/L TROPHIC CONDITION-TEXTURE/ELASTICITY/TURGOR/HAIR GROWTH (B): normal, B/L EDEMA (C): absent, B/L PIGMENTATION: normal, B/L Nails NAILS are: Elongated, overg rown, dystrophic, lytic, greater than 3mm thick, discolored and friable with crumbly malodorous subungual debris, with pain on palpation, 1-5 B/L
--- OUTSIDE RECORDS SUMMARY | 2024-08-22 16:56 | XMS_ITS | Patient Health Record ---
Author Organization [facility] Address [address] [place] [address] Care Team Providers Care Grain Shipper Name Role Phone Dustin García MD Primary Care Provider Shannon Malhotra Unavailable [phone] Allergies No Known Allergies Reason For Referral No Information Medications Medication SIG (Take, Route, Frequency, Duration) [...] Points 0 Interpretation Negative Vital Signs Height 1kh26nd in 06/26/2024 Weight 240 lbs 06/26/2024 BMI 34.43 kg/m2 06/26/2024 Encounters Encounter Location Date Provider [facility] [address] [place] [address] 06/26/2024 Shannon Hancock Pain in right toe(s) M79.674 ; Onychomycosis B35.1 ; Pain in left toe(s) M79.675 and Tinea pedis of both feet B35.3 [facility] [address] [place] [address] 03/18/2024 Shannon Hancock [facility] [address] [place] [address] 07/08/2024 Shannon Hancock Assessments Encounter Date Diagnosis (ICD Code) Assessment Notes Treatment Notes Treatment Clinical Notes Section Notes 06/26/2024 Pain in right toe(s) (ICD-10 - M79.674) 06/26/2024 Onychomycosis (ICD-10 - B35.1) 06/26/2024 Pain in left toe(s) (ICD-10 - M79.675) 06/26/2024 Tinea pedis of both feet (ICD-10 - B35.3) Plan Of Treatment Pending Test Test Name Order Date *Liver Function Test (LFT) 06/26/2024 Next Appt Details Provider Name:Shannon fields, 09/17/2024 03:45:00 PM, [address] [place] [address], [phone], Insurance Providers Payer Name Payer Address Payer Phone Subscriber Number Group Number Insured Name Patient Relationship to Insured Coverage Start Date Coverage End Date [facility] [address] [place] [address] [id number] Brodie Kulkarni Self - patient is the insured Medical (General) History Medical History History ICD Code High Blood Pressure Surgical History Surgery Date(Month/Year) back surgery 2021 knee surgery 2022
--- OUTSIDE RECORDS SUMMARY | 2024-08-22 16:56 | XMS_ITS ---
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 Generated for Reyi francesca/Rigoberto/eTransmitting on:?08/22/2024 04:55 PM EST
--- OUTSIDE RECORDS SUMMARY | 2024-08-22 16:56 | XMS_ITS ---
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 Problem [id number] Other obesity (E66.8) Active confirmed Vital Signs Blood pressure systolic 132 mm Hg 01/12/20 Blood pressure diastolic 70 mm Hg 024 Height 70 in 01/12/2024 Weight 247 lbs 01/12/2024 BMI 35.44 kg/m2 01/12/2024 weight is up 12 pounds since 09-01-23 Encounters Encounter Location Date Provider Diagnosis Dustin García MD [address] [place] [address] Drive [address] [place] [phone] 01/12/2024 Dustin García Body mass index (BMI) [...] anymore Next Appt Details Provider Name:Dustin montague, 10/03/2024 07:15:00 AM, [address] [place] [address], [address], [phone], Provider Name:Dustin montague, 10/10/2024 08:00:00 AM, [address] [place] [address], [address], [phone], Progress Notes * Brodie KULKARNI ADOB:1970 (53 yo M)Acc No.[id number]:01/12/2024 Progress Notes Patient:?Brodie Kulkarni Provider:?Dustin Garíca MD :1970???Age:53 Y???Sex:Male Duong e:01/12/2024 Address:[address], [place], [id number] Subjective: * Chief Complaints: * ???fatigue x 2weeks tested n egative Covid this AM * HPI: ???Symptom(s):? patient is a 53 yo male complaining he is tired all the time. gaining weight. working 60 hours. * ROS:?General/Constitutional:?Denies?Chills.?Admits?Fatigue.?Denies?Fever.?Denies?Headache.?ENT:?Patient denies?decreased sense of smell , any loss of taste , sore throat.?Denies?Sore throat.?Respiratory:?Denies?Cough.?Denies?Shortness of breath at rest.?Denies?Shortness of breath with exertion.?Gastrointestinal:?Denies?Diarrhea.?Denies?Nausea.?Musculoskeletal:?Patient denies?muscle aches.?Peripheral Vascular:?Patient denies?red and blue toes.? * Medical History:? * Surgical History:? * Hospitalization/Major Diagno stic Procedure:? * Medications:?TakingOmeprazol e 20 MG Capsule Delayed Release TAKE 1 CAPSULE BY MOUTH EVERY DAY 30 MINUTES BEFORE BREAKFAST Albuterol Sulfate HFA 108 (90 Base) MCG/ACT Aerosol Solution 1 puff as needed Inhalation every 4 hrsSildenafil Citrate 50 MG Tablet TAKE ONE TABLET BY MOUTH EVERY DAY NEEDED PARoxetine HCl 40 MG Tablet TAKE 1 TABLET BY MOUTH EVERY DAY IN THE MORNING Lisinopril-hydroCHLOROthiazide 10- 12.5 MG Tablet TAKE 1 TABLET BY MOUTH [...] Allergies:?N.K.D.A.yes[Aller gies Verified] Objective: * Vitals:?Ht: 70, Wt:247, BMI: 35.44, BP:132/70 weight is up 12 pounds since 09-01-23. * Examination: ???General Examination: ?GENERAL APPEARANCE:? alert, well hydrated, in no distress .?HEAD:? normocephalic.?SKIN:?good turgor.?HEART:? no murmurs, rubs, gallops, regular rate and rhythm.?LUNGS:? no wheezes, rales, rhonchi, good air movement, clear to auscultation bilaterally.? Assessment: * Assessment: 1.?Other obesity - E66.8 (Pr imary)?2.?Body mass index (BMI) of 30.0 to 30.9 in adult - Z68.30? Plan: * Treatment: * Procedure Codes:? * * Sign off status: Completed true * Provider:?Dustin García MD Date:?0 01/12/2024 Generated for Jose ma/Rigoberto/eTransmitting on:?08/22/2024 04:55 PM EST History and Physical [...]
== END 2024-08-22 13:26 | disposition home or self-care (01) ==
PROVIDERS: PCP Internal Medicine; Visit Provider Physician Assistant
DX: S83.241A Other tear of medial meniscus, current injury, right knee, initial encounter (principal)
CPT/HCPCS: 99024

== ENCOUNTER → 2024-08-22 13:07 | Outpatient (BNVA) | payer OTHER, SELFPAY | PROVIDERS: PCP Internal Medicine; Visit Provider Physician Assistant ==

== ENCOUNTER → 2024-09-05 12:42 | Outpatient (BNVA) | payer SELFPAY | PROVIDERS: PCP Internal Medicine; Visit Provider Physician Assistant | DX: Z02.79 Encounter for issue of other medical certificate (principal) ==

== ENCOUNTER 2024-09-18 10:09 | Outpatient (AMB) | payer OTHER, SELFPAY ==
[2024-09-18 10:11] VITALS: BMI 35.6
--- NOTE | 2024-09-18 10:11 | A.OFFVIS_ITS ---
Vital Signs 09/18/24 10:11 Height 5 ft 9 in Weight 241 lb BMI 35.6 Intake Visit Reasons: PO RT knee 08/09/24 Intake Note: Brodie is a 54 year old male who presents today post-operatively after undergoing right knee arthroscopic surgery on on 08/09/24. Patient reports he is doing well. He continues to wear a knee brace while at work. Denies any fevers or chills. Allergies No Known Allergies Allergy (Verified 09/18/24 10:12) Medication List - Last Reconciled 09/19/24 by Kory Mcgrath MD ibuprofen 800 mg PO [lisinopril Lisinopril 10 mg po once daily] omeprazole 20 mg PO QAM [facility] Medical History (Updated 08/09/24 @ 08:10 by Carmen Lazcano, RN) GERD (gastroesophageal reflux disease) HTN (hypertension) Hx of renal calculi Surgical History (Updated 08/09/24 @ 08:10 by Carmen Lazcano RN) History of back surgery Hx of repair of right rotator cuff Social History Alcohol intake: never Patient Tobacco Use Status: Never used Tobacco Physical Exam Vital Signs: BMI result Body Mass Index 35.6 Extrem Other: Right knee examination shows that the surgical incisions are well healed, no erythema, full active extension and flexion to 120 degrees, minimal discomfort with range of motion, no instability Assessment & Plan Assessment & Plan (1) Right knee pain: Code(s): M25.561 - Pain in right knee Category: Medical Plan Mr. Shad Zelaya continues to do well after undergoing right knee arthroscopic surgery on 08/09/2024. He will gradually progress to activities as tolerated. He will contact me prior to his follow-up appointment in 3 months should any questions or concerns arise. Feel free to call me at any time should questions regarding his orthopedic management arise. Coding Level of Care Code Global (31913) Diagnoses Right knee pain M25.561
--- OUTSIDE RECORDS SUMMARY | 2024-09-18 12:15 | XMS_ITS ---
Author Organization Dustin García MD Address [address] [place], [place] [phone] Care Team Providers Care Eyelet Cutter Name Role Phone Dustin García Primary Care [...] Ibuprofen 800 MG [facility] EVERY 8 HOURS for 30 Active ProAir HFA 108 (90 Base) MCG/ACT 1 puff as needed Inhalation every 4 hrs for 30 days 09/20/2019 Not-Taking PARoxetine HCl 40 MG TAKE 1 TABLET BY [facility] EVERY DAY IN THE MORNING Orally Once a day for 90 days Active Lisinopril-hydroCHLOROthi azide 10-12.5 MG TAKE 1 TABLET BY MOUTH DAILY Orally Once a day for 90 days Active Omeprazole 20 MG TAKE 1 CAPSULE BY [facility] EVERY DAY 30 MINUTES BEFORE BREAKFAST [...] Location Date Provider Diagnosis Dustin García MD [address] [place] [phone] 08/22/2024 Dustin García Unintended weight gain R63.5 [...] HCl 40 MG TAKE 1 TABLET BY [facility] EVERY DAY IN THE MORNING Orally Once [...] complete Provider Name:Dustin montague, 10/03/2024 07:15:00 AM, [address] [place] [address], [address], [phone], Provider Name:Dustin montague, 10/10/2024 08:00:00 AM, [address] [place] [address], [place] [address], [place], [place], [phone], Progress Notes * Brodie KULKARNI ADOB:1970 (54 yo M)Acc No.[id number]:08/22/2024 Progress Notes Patient:?Brodie KULKARNI Provider:?Dustin García MD :1970???Age:54 Y???Sex:Male Duong e:08/22/2024 Address:[address], [id number] Subjective: * Chief Complaints: * ???Discuss wt meds * HPI: ???Symptom(s):?patient is a 54 yo [...] into affected eye Ophthalmic Twice a day Tums 500 MG Tablet Chewable 1 tablet [...] Allergies:?N.K.D.A.yes[Aller gies Verified] Objective: * Vitals:?Ht: 70, Wt: 249, BMI [...] day, 90 days, 90, Refills 3.?? * Procedure Codes:? * Follow Up:?6 Months (Reason: complete) * * Sign off status: Completed true * Provider:?Dustin García MD Date:?0 08/22/2024 Generated for Jose ma/Rigoberto/Spenceritting on:?09/18/2024 12:15 PM EST History and Physical Notes * [...]
--- OUTSIDE RECORDS SUMMARY | 2024-09-18 12:15 | XMS_ITS ---
[facility] [place] Address [address] [place] [address] Care Team Providers Care Nc Manager Name Role Phone Dustin García MD Primary Care Provider Shannon Malhotra [phone] REASON FOR VISIT No show Encounters Encounter Location Date Provider Diagnosis [facility] [address] [place] [address] 09/17/2024 Shannon Hancock Plan Of Treatment No Information Progress Notes * Chris KULKARNIOB:1970 ( 54 yo M)Acc No.[id number]:09/17/2024 Patient:?Brodie KULKARNI :1970???Age:54 Y???Sex:Male Address:[address] [place] [address] * true * Date:? Generated for Jose ma/Rigoberto/eTransmitting on:?09/18/2024 12:15 PM EST
--- OUTSIDE RECORDS SUMMARY | 2024-09-18 12:16 | XMS_ITS ---
Author Organization [facility] Address [address] [place] [address] Care Team Providers Care Logger Driving Horses Name Role Phone Dustin García MD Primary Care Provider Shannon Malhotra Unavailable [phone] Medications Medication SIG (Take, Route, Frequency, Duration) Notes Start Date End Date Status Ciclopirox Olamine 0.77 % 1 application Externally Twice a day to skin of feet including between the toes for 30 days Active Motrin Active LamISIL 250 MG 1 tablet Orally Once a day for 30 days Active Lisinopril 10 MG 1 tablet Orally Once a day Active Encounters Encounter Location Date Provider Diagnosis [facility] [address] [place] [address] 09/17/2024 Shannon Hancock Plan Of Treatment No Information Progress Notes * Jorge Alberto KULKARNIroDOB:1970 ( 54 yo M)Acc No.[id number]:09/17/2024 Progress Note Patient:?Brodie KULKARNI Provider:?Shannon Hancock DPM :1970???Age:54 Y???Sex:Male Duong e:09/17/2024 Address:[address], [id number] Pcp:Dustin García MD Subjective: * Chief Complaints: * ??? * Medical History:? * Medications:?Taking Motrin , Taking Lisinopril 10 MG Tablet 1 tablet Orally Once a day , Taking LamISIL 250 MG Tablet 1 tablet Orally Once a day , Taking Ciclopirox Olamine 0.77 % Cream 1 application Externally Twice a day to skin of feet including between the toes Objective: * Vitals:? Assessment: Plan: * Treatment: * Images: * The named appointment provid er may or may not be the originator of this progress note, and it is not deemed complete until electronically signed by the appointment provider. Sign off status: Pending * Provider:?Shannon Hancock DPM Date:? Generated for Jose ma/Rigoberto/Demar on:?09/18/2024 12:16 PM EST
--- OUTSIDE RECORDS SUMMARY | 2024-09-18 12:16 | XMS_ITS ---
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 Problem 985040846 Other obesity (E66.8) Active confirmed Vital Signs Blood pressure systolic 132 mm Hg 01/12/20 Blood pressure diastolic 70 mm Hg 024 Height 70 in 01/12/2024 Weight 247 lbs 01/12/2024 BMI 35.44 kg/m2 01/12/2024 weight is up 12 pounds since 09-01-23 Encounters Encounter Location Date Provider Diagnosis Dustin García MD [address] [place] [address] Drive [address] [place] [phone] 01/12/2024 Dustin García Body mass index (BMI) [...] Details Provider Name:Dustin montague, 10/03/2024 07:15:00 AM, [address] [place] [address], [address], [phone], Provider Name:Dustin montague, 10/10/2024 08:00:00 AM, [address] [place] [address], [address], [phone], Progress Notes * Brodie KULKARNI ADOB:1970 (53 yo M)Acc No.[id number]:01/12/2024 Progress Notes Patient:?Brodie Kulkarni Provider:?Dustin García MD :1970???Age:53 Y???Sex:Male Duong e:01/12/2024 Address:[address], [place], [id number] Subjective: * Chief Complaints: * ???fatigue x [...] MD Date:?0 01/12/2024 Generated for Jose ma/Rigoberto/eTransmitting on:?09/18/2024 12:16 PM EST History and Physical Notes * [...]
--- OUTSIDE RECORDS SUMMARY | 2024-09-18 12:16 | XMS_ITS ---
Author Organization Dustin García MD Address [address] [place], [place] [phone] Care Team Providers Care Recep Name Role Phone Dustin García Primary Care [...] faxed x-rays pending to be done at [facility] , Belen Landaverde 04/11/2024 01:27:38 PM EDT > spoke with Ortho regrading appt. X-ray results are being forwarded to the provider for a sooner appt , Belen Landaverde 04/12/2024 11:20:59 AM EDT > spoe with [facility] Ortho, they said they are trying to [...] 20 MG TAKE 1 CAPSULE BY MO [facility] EVERY DAY 30 MINUTES BEFORE BREAKFAST for 90 Active PARoxetine HCl 40 MG TAKE 1 TABLET BY [facility] EVERY DAY IN THE MORNING [...] kg/m2 04/09/2024 weight is down 8 pounds [facility] 01-12-24 Encounters Encounter Location Date Provider Diagnosis Dustin García MD [address] [place], [place] [phone] 04/09/2024 Dustin García Encounter for immunization Z23 and Acute torn meniscus S83.209A Assessments Encounter Date Diagnosis (ICD Code) Assessment Notes Treatment Notes Treatment Clinical Notes Section Notes 04/09/2024 Encounter for immunization (ICD-10 - Z23) flu vaccine administed 04/09/2024 Acute torn meniscus (ICD-10 - S83.209A) referral to dr queen/ x-ray order faxed to both [facility] patient Reg numbers. patient verbalized understanding of [...] queen / x-ray order faxed to both [facility] patient Reg numbers. patient verbalized understanding of medication and directions for use Pending Test Test Name Order Date XR knee RT 3V 04/09/2024 Referrals Referral Date Details 04/09/2024 04/09/2024, acute to rn meniscus please booked patient for a soon appointment Right knee , [facility] Next Appt Details Provider Name:Dustin montague, 10/03/2024 07:15:00 AM, [address] [place] [address], [address], [place], [place], [phone], Provider Name:Dustin montague, 10/10/2024 08:00:00 AM, [address] [place] [address], [address], [place], [place], [phone], Progress Notes * Brodie KULKARNI ADOB:1970 (53 yo M)Acc No.[id number]:04/09/2024 Progress Notes Patient:?Brodie Kulkarni Provider:?Dustin García MD :1970???Age:53 Y???Sex:Male Duong e:04/09/2024 Address:[address], [facility] [id number] Subjective: * Chief Complaints: * ???Right knee [...] dr queen/ x-ray order faxed to both [facility] patient Reg numbers. patient verbalized understanding of medication and directions for use?&#1 60;? Referral To:[facility]??Orthopedic Surgery ?Reason:acute torn meniscus please booked patient for a soon appointment Right knee 2.?Encounter for immunization? Notes: flu vaccine administed?? * Immunizations:? Fluarix Quadrivalent - 150 : 0.5 mL (Dose No:1) (Route: Intramuscular) given by Valencia Rodgers on Left Deltoid * Procedure Codes:?83151 FLU V AC NO PRSV 4 AKSHAT 3 YRS+60272 IMMUNIZATION ADMIN * Preventive Medicine:? ??Immunizations:?Influenza?Have you had a flu shot since the most recent March 24??Yes.? * * Sign off status: Completed true * Provider:?Dustin García MD Date:?0 04/09/2024 Generated for Jose ma/Rigoberto/Spenceritting on:?09/18/2024 12:15 PM [...]
--- OUTSIDE RECORDS SUMMARY | 2024-09-18 12:16 | XMS_ITS | Patient Health Record ---
Author Organization [facility] Address [address] [place] [address] Care Team Providers Care Deck And Hull Assembler Name Role Phone Dustin García MD Primary Care Provider Casper Mcwilliams Unavailable [phone] REASON FOR REFERRAL No Information MEDICATIONS Medication [...] confirmed Screening for malignant neoplasm of colon (177980753) Problem Preprocedural examination (Z01.818) Active confirmed Preprocedural examination ([id number] ) PLAN OF TREATMENT Pending Test Test Name Order Date Pathology 08/10/2020 Future Test Test Name Order Date COLONOSCOPY 07/07/2020 Insurance Providers Payer Name Payer Address Payer Phone Subscriber Number Group Number Insured Name Patient Relationship to Insured Coverage Start Date Coverage End Date [facility] [address] [place] [phone] [id number] SOFIA KULKARNI Self - patient is the insured MEDICAL (GENERAL) HISTORY Medical History History ICD Code Hypertension Denies NM,DM,CVA,Lung disease,renal dise ase Kidney stones Surgical History Surgery Date(Month/Year)
--- OUTSIDE RECORDS SUMMARY | 2024-09-18 12:17 | XMS_ITS | Patient Health Record ---
Author Organization [facility] Address [address] [place] [address] Care Team Providers Care Monitoring Specialist Name Role Phone Dustin García MD Primary Care Provider Shannon Malhotra Unavailable [phone] Allergies No Known Allergies Reason For Referral [...] 1 tablet Orally Once a day Active Social History Tobacco Use: Social History [...] Points 0 Interpretation Negative Vital Signs Height 7br18vy in 06/26/2024 Weight 240 lbs 06/26/2024 BMI 34.43 kg/m2 06/26/2024 Encounters Encounter Location Date Provider Diagnosis [facility] [address] [place] [address] 06/26/2024 Shannon Hancock Pain in right toe(s) M79.674 ; Onychomycosis B35.1 ; Pain in left toe(s) M79.675 and Tinea pedis of both feet B35.3 [facility] [address] [place] [address] 03/18/2024 Shannon Hancock [facility] [address] [place] [address] 07/08/2024 Shannon Hancock [facility] [address] [place] [address] 09/17/2024 Shannon Hancock Assessments Encounter Date Diagnosis (ICD Code) Assessment Notes Treatment Notes Treatment Clinical Notes Section Notes 06/26/2024 Pain in right toe(s) (ICD-10 - M79.674) 06/26/2024 Onychomycosis (ICD-10 - B35.1) 06/26/2024 Pain in left toe(s) (ICD-10 - M79.675) 06/26/2024 Tinea pedis of both feet (ICD-10 - B35.3) Plan Of Treatment Pending Test Test Name Order Date *Liver Function Test (LFT) 06/26/2024 Insurance Providers Payer Name Payer Address Payer Phone Subscriber Number Group Number Insured Name Patient Relationship to Insured Coverage Start Date Coverage End Date [facility] [address] [place] [id number] Brodie Kulkarni Self - patient is the insured Medical (General) History Medical History History ICD Code High Blood Pressure Surgical History Surgery Date(Month/Year) back surgery 2021 knee surgery 2022
--- OUTSIDE RECORDS SUMMARY | 2024-09-18 12:17 | XMS_ITS ---
Author Organization [facility] Address [address] [place] [address] Care Team Providers Care Civil Cad Designer Name Role Phone Ricky IBARRA, Dustin Primary Care Provider Shannon Malhotra Unavailable [phone] Rescheduled Encounters Encounter Location Date Provider Diagnosis [facility] [address] [place] [address] 09/10/2024 Shannon Hancock Plan Of Treatment No Information Progress Notes * Jorge Alberto KULKARNIroDOB:1970 ( 54 yo M)Acc No.[id number]:09/10/2024 Progress Note Patient:?Brodie KULKARNI Provider:?Shannon Hancock DPM :1970???Age:54 Y???Sex:Male Duong e:09/10/2024 Address:[address], [id number] Pcp:Dustin García MD Subjective: * Chief Complaints: * ???1. Rescheduled. * Medical History:? Objective: * Vitals:? Assessment: Plan: * Treatment: * Images: * The named appointment provid er may or may not be the originator of this progress note, and it is not deemed complete until electronically signed by the appointment provider. Sign off status: Pending * Provider:?Shannon Hancock DPM Date:? Generated for Jose ma/Rigoberto/Demar on:?09/18/2024 12:16 PM EST
== END 2024-09-18 10:32 | disposition home or self-care (01) ==
PROVIDERS: PCP Internal Medicine; Visit Provider Orthopaedic Surgery
DX: M25.561 Pain in right knee (principal)
CPT/HCPCS: 99024

== ENCOUNTER 2024-10-04 10:49 | Outpatient (REF) | payer OTHER, SELFPAY ==
[2024-10-04 10:52] LABS: MANUAL DIFF FLAG NO
[2024-10-04 11:11] LABS: Basophils Absolute Auto 0.1 X10*3/uL (0.0-0.2); Basophils Percent Auto 0.9 % (0-2); Eosinophils Absolute Auto 0.2 X10*3/uL (0.0-0.4); Eosinophils Percent Auto 2.1 % (0-4); Hematocrit 41.8 % (42.0-52.0); Hemoglobin 13.4 g/dl (14.0-18.0); Imm Gran Abs Auto 0.02 X10*3/uL (0.00-0.03); Imm Gran Pct Auto 0.2 % (0.0-0.4); Lymphocytes Absolute Auto 2.6 X10*3/uL (1.2-4.9); Lymphocytes Percent Auto 28.8 % (20-40); Mean Corpuscular HGB Conc 32.1 g/dl (31.0-36.0); Mean Corpuscular Hemoglobin 27.6 pg (27.0-33.0); Mean Platelet Volume 11.3 fL (9.4-12.4); Monocytes Absolute Auto 0.8 X10*3/uL (0.1-1.2); Monocytes Percent Auto 8.6 % (2-11); Neutrophils Absolute Auto 5.4 x10*3/uL (2.0-8.3); Neutrophils Percent Auto 59.4 % (45-73); Platelet Count 266 X10*3/uL (160-400); Red Blood Count 4.86 X10*6/uL (4.60-5.80); Red Cell Distribution Width 13.9 % (11.0-16.0); White Blood Count 9.1 X10*3/uL (4.8-10.8)
[2024-10-04 11:13] LABS: Appearance Urine Clear; Color Urine Yellow; Glucose Urine UA Negative (Negative); Leukocyte Esterase Urine Negative (Negative); Nitrite Urine Negative (Negative); PH 5.5 (5.0-9.0); Urine Blood Negative (Negative); Urine Ketones Negative (Negative); Urine Protein Negative (Neg-Trace)
[2024-10-04 11:17] LABS: Bacteria Urine None Seen (None Seen); Hyaline Casts Urine 0-2 /LPF (0-2); RBC Urine 0-2 /HPF (0-2); Squamous Epithelial Cell Urine 0-2 /HPF (0-2); WBC Urine 0-5 /HPF (0-5)
[2024-10-04 11:36] LABS: Alanine Aminotransferase 44 U/L (0-40); Albumin Level 4.5 g/dL (3.5-5.0); Alkaline Phosphatase 96 U/L (39-117); Anion Gap 13 (12-20); Aspartate Amino Transferase 40 U/L (5-37); Bilirubin Total 0.4 mg/dL (0.0-1.0); Blood Urea Nitrogen 20 mg/dL (9-16); Calcium 9.8 mg/dL (8.4-10.2); Carbon Dioxide 28 mmol/L (22-29); Chloride 105 mmol/L (96-108); Cholesterol 213 mg/dL (<200); Estimated Glomerular Filt Rate > 60; Glucose Fasting 110 mg/dL (60-99); HDL Cholesterol 53 mg/dL (>40); LDL Cholesterol Calculated 142 mg/dL (<100); Potassium 4.6 mmol/L (3.3-5.1); Sodium 141 mmol/L (135-145); Total Protein 8.3 g/dL (6.5-8.0); Triglycerides 92 mg/dL (<150)
[2024-10-04 11:47] LABS: PSA,Total (Free>4and<10) 1.97 ng/mL (0.00-4.00)
--- OUTSIDE RECORDS SUMMARY | 2024-10-04 12:26 | XMS_ITS ---
Author Organization Dustin García MD Address [address] [place], [place] [phone] Care Team Providers Care Shrimp Picker Name Role Phone Dustin García Primary Care Provider [phone] Allergies No Known Allergies REASON FOR VISIT [...] Ibuprofen 800 MG [facility] [address] [facility] EVERY 8 HOURS for 30 Active ProAir HFA 108 (90 Base) MCG/ACT 1 puff as needed Inhalation every 4 hrs for 30 days 09/20/2019 Not-Taking PARoxetine HCl 40 MG TAKE 1 TABLET BY [facility] EVERY DAY IN THE MORNING Orally Once a day for 90 days Active Lisinopril-hydroCHLOROthi azide 10-12.5 MG TAKE 1 TABLET BY MOUTH DAILY Orally Once a day for 90 days Active Omeprazole 20 MG TAKE 1 CAPSULE BY MO [facility] EVERY DAY 30 MINUTES BEFORE BREAKFAST for [...] Date Provider Diagnosis Dustin García MD [address] [facility] [address] [place], [place] [phone] 08/22/2024 Dustin García Unintended weight gain R63.5 [...] 40 MG TAKE 1 TABLET BY [facility] EVERY DAY IN THE MORNING Orally Once a day for 90 days Lisinopril-hydroCHLOROthiazi de 10-12.5 MG TAKE 1 TABLET BY MOUTH DAILY Orally Once a day for 90 days Treatment Notes Assessment Notes Unintended weight gain discussed the med s and and he doesn't want to stay on meds Next Appt Details Follow Up: 6 Months, Reason: complete Provider Name:Dustin montague, 10/10/2024 08:00:00 AM, [address] [place] [address], [address], [place], [place], [phone], Progress Notes * Brodie KULKARNI ADOB:1970 (54 yo M)Acc No.[id number]:08/22/2024 Progress Notes Patient:?Brodie KULKARNI Provider:?Dustin García MD :1970???Age:54 Y???Sex:Male Duong e:08/22/2024 Address:[address], [place], [id number] Subjective: * Chief Complaints: * ???Discuss wt [...] García MD Date:?0 08/22/2024 Generated for Jose ma/Rigoberto/eTransmitting on:?10/04/2024 12:26 PM EDT History and Physical Notes * HPI (History [...]
--- OUTSIDE RECORDS SUMMARY | 2024-10-04 12:26 | XMS_ITS ---
[facility] [place] [place] Address [address] [place] [address] Care Team Providers Care Cap Blocker Name Role Phone Dustin García MD Primary Care Provider Shannon Malhotra [phone] REASON FOR VISIT No show Encounters Encounter Location Date Provider Diagnosis [facility] [address] [place] [address] 09/17/2024 Shannon Hancock Plan Of Treatment No Information Progress Notes * Chris KULKARNIOB:1970 ( 54 yo M)Acc No.[id number]:09/17/2024 Patient:?Brodie KULKARNI :1970???Age:54 Y???Sex:Male Address:[address] [place] [address] * true * Date:? Generated for Printi francesca/Rigoberto/eTransmitting on:?10/04/2024 12:26 PM EDT
--- OUTSIDE RECORDS SUMMARY | 2024-10-04 12:27 | XMS_ITS ---
Author Organization Dustin García MD Address [address] [place], [place] [id number] Care Team Providers Care Forensic Identification Specialist Name Role Phone Dustin García Primary Care [...] faxed x-rays pending to be done at [facility] , Belen Landaverde 04/11/2024 01:27:38 PM EDT > spoke with Ortho regrading appt. X-ray results are being forwarded to the provider for a sooner appt , Belen Landaverde 04/12/2024 11:20:59 AM EDT > spoe with [facility] Ortho, they said they are trying to [...] 20 MG TAKE 1 CAPSULE BY MO [facility] EVERY DAY 30 MINUTES BEFORE BREAKFAST for 90 Active PARoxetine HCl 40 MG TAKE 1 TABLET BY MO [facility] EVERY DAY IN THE MORNING for 30 [...] kg/m2 04/09/2024 weight is down 8 pounds formerly [facility] 01-12-24 Encounters Encounter Location Date Provider Diagnosis Dustin García MD [address] [place], [place] [phone] 04/09/2024 Dustin García Encounter for immunization Z23 and Acute torn meniscus S83.209A Assessments Encounter Date Diagnosis (ICD Code) Assessment Notes Treatment Notes Treatment Clinical Notes Section Notes 04/09/2024 Encounter for immunization (ICD-10 - Z23) flu vaccine administed 04/09/2024 Acute torn meniscus (ICD-10 - S83.209A) referral to dr queen/ x-ray order faxed to both [facility] patient Reg numbers. patient verbalized understanding of [...] queen / x-ray order faxed to both [facility] patient Reg numbers. patient verbalized understanding of medication and directions for use Pending Test Test Name Order Date XR knee RT 3V 04/09/2024 Referrals Referral Date Details 04/09/2024 04/09/2024, acute to rn meniscus please booked patient for a soon appointment Right knee , [facility] Next Appt Details Provider Name:Dustin Muller ier, 10/10/2024 08:00:00 AM, [address] [place] [address], [address], [place], [place], [phone], Progress Notes * Brodie KULKARNI ADOB:1970 (53 yo M)Acc No.[id number]:04/09/2024 Progress Notes Patient:?rBodie Kulkarni Provider:?Dustin García MD :1970???Age:53 Y???Sex:Male Duong e:04/09/2024 Address:[address], [facility], [id number] Subjective: * Chief Complaints: * ???Right knee [...] dr queen/ x-ray order faxed to both [facility] patient Reg numbers. patient verbalized understanding of medication and directions for use?&#1 60;? Referral To:[facility]??Orthopedic Surgery ?Reason:acute torn meniscus please booked patient for a soon appointment Right knee 2.?Encounter for immunization? Notes: flu vaccine administed?? * Immunizations:? Fluarix Quadrivalent - 150 : 0.5 mL (Dose No:1) (Route: Intramuscular) given by Valencia Rodgers on Left Deltoid * Procedure Codes:?77151 FLU V AC NO PRSV 4 AKSHAT 3 YRS+11498 IMMUNIZATION ADMIN * Preventive Medicine:? ??Immunizations:?Influenza?Have you had a flu shot since the most recent March 24??Yes.? * * Sign off status: Completed true * Provider:?Dustin García MD Date:?0 04/09/2024 Generated for Jose ma/Rigoberto/eTransmitting on:?10/04/2024 12:26 PM [...]
--- OUTSIDE RECORDS SUMMARY | 2024-10-04 12:27 | XMS_ITS ---
Author Organization Dustin García MD Address [address] [place], [place] [phone] Care Team Providers Care Terrazzo Worker Helper Name Role Phone Dustin García Primary Care Provider REASON FOR VISIT FASTING LABS Encounters Encounter Location Date Provider Diagnosis Dustin García MD [address] [place] [phone] 10/04/2024 Dustin García Blood tests for routine [...] Complete Blood Count Auto Diff 5 Comprehensive [place]. Panel Fast 5 Lipid Panel 10/04/2024 PSA,Total (Free>4and<10) 10/04/2024 UA ClnCatch+Micro w/rflx Cult 10/04/2024 Next Appt Details Provider Name:Dustin montague, 10/10/2024 08:00:00 AM, [address], [address], [place], [place], [phone], Progress Notes * Brodie KULKARNI ADOB:1970 (54 yo M)Acc No.[id number]:10/04/2024 Progress Note Patient:?Brodie KULKARNI Provider:?Dustin García MD :1970???Age:54 Y???Sex:Male Duong e:10/04/2024 Address:[address], [place], [id number] Subjective: * Chief Complaints: * ???1. FASTING LABS. * Medical History:? Objective: * Vitals:? Assessment: * Assessment: 1.?Blood tests for routine g eneral physical examination - Z00.00 (Primary)???2.?Essential hypertension - I10???3.?Borderline high cholesterol - E78.9??? Plan: * Treatment: 2.?Essential hypertension?LAB: Complete Blood Count Auto Diff ?LAB: Comprehensive [place]. Panel Fast ?LAB: Lipid Panel ?LAB: PSA,Total (Free>4and<10) ?LAB: UA ClnCatch+Micro w/rflx Cult 3.?Borderline high cholester ol?LAB: Complete Blood Count Auto Diff ?LAB: Comprehensive [place]. Panel Fast ?LAB: Lipid Panel ?LAB: PSA,Total (Free>4and<10) ?LAB: UA ClnCatch+Micro w/rflx Cult * Procedure Codes:?84960 VENIP UNCT, ROUTINE* * * The named appointment provid er may or may not be the originator of this progress note, and it is not deemed complete until electronically signed by the appointment provider. Sign off status: Pending * Provider:?Dustin García MD Date:?0 10/04/2024 Generated for Jose ma/Rigoberto/eTransmitting on:?10/04/2024 12:26 PM EDT
--- OUTSIDE RECORDS SUMMARY | 2024-10-04 12:27 | XMS_ITS ---
Author Organization [facility] Address [address] [place] [address] Care Team Providers Care Internal Controls Analyst Name Role Phone Dustin García MD Primary Care Provider Shannon Malhotra Unavailable [phone] Medications Medication SIG (Take, Route, Frequency, Duration) [...] Active Encounters Encounter Location Date Provider Diagnosis [facility] [address] [place] [address] 09/17/2024 Shannon Hancock Plan Of Treatment No Information Progress Notes * Jorge Alberto KULKARNIroDOB:1970 ( 54 yo M)Acc No.[id number]:09/17/2024 Progress Note Patient:?Brodie KULKARNI Provider:?Shannon Hancock DPM :1970???Age:54 Y???Sex:Male Duong e:09/17/2024 Address:[address], [id number] Pcp:Dustin García MD Subjective: * Chief Complaints: [...] Hancock DPM Date:? Generated for Jose ma/Rigoberto/Demar on:?10/04/2024 12:27 PM EDT
--- OUTSIDE RECORDS SUMMARY | 2024-10-04 12:27 | XMS_ITS | Patient Health Record ---
Author Organization [facility] Address [address] [place] [address] Care Team Providers Care Assistant Professor Of Spanish Name Role Phone Dustin García MD Primary Care Provider Casper Mcwilliams Unavailable [phone] Reason For Referral No Information Medications Medication SIG (Take, Route, Frequency, Duration) Notes Start Date End Date Status Lisinopril Active Motrin Active Immunizations Vaccine Route Administration Date Status Comme nts Influenza Unknown 05/24/2020 Administered Social History Tobacco Use: Social History Observation Description Date Details (start date - stop date) Never Smoker NA - NA Tobacco Use/Smoking Question Answer Notes Patient is a nonsmoker Alcohol Screen Question Answer Notes Did you have a drink containing alcohol in the p ast year? Yes Points 0 Interpretation Negative Section Notes: Nonsmoker; no sig alcohol Problems Problem Type SNOMED Code ICD Code Onset Dates Problem Status W/U Status Risk Notes Problem Screening for malignant neoplasm of colon (770764808) Encounter for screening for malignant neoplasm of colon (Z12.11) Active confirmed Problem Preprocedural examination (414685050083027) Preprocedural examination (Z01.818) Active confirmed Plan Of Treatment Pending Test Test Name Order Date Pathology 08/10/2020 Future Test Test Name Order Date COLONOSCOPY 07/07/2020 Insurance Providers Payer Name Payer Address Payer Phone Subscriber Number Group Number Insured Name Patient Relationship to Insured Coverage Start Date Coverage End Date [facility] [address] [facility] [phone] [id number] DEE Self - patient is the insured Medical (General) History Medical History History ICD Code Hypertension Denies DE,DM,CVA,Lung disease,renal dise ase Kidney stones Surgical History Surgery Date(Month/Year)
--- OUTSIDE RECORDS SUMMARY | 2024-10-04 12:27 | XMS_ITS | Patient Health Record ---
Author Organization [facility] Address [address] [place] [address] Care Team Providers Care Electrical Instrument Repairer Name Role Phone Dustin García MD Primary Care Provider Shannon Malhotra Unavailable [phone] Allergies No Known Allergies Reason For Referral [...] Points 0 Interpretation Negative Vital Signs Height 4ne81or in 06/26/2024 Weight 240 lbs 06/26/2024 BMI 34.43 kg/m2 06/26/2024 Encounters Encounter Location Date Provider Diagnosis [facility] [address] [place] [address] 06/26/2024 Shannon Hancock Pain in right toe(s) M79.674 ; Onychomycosis B35.1 ; Pain in left toe(s) M79.675 and Tinea pedis of both feet B35.3 [facility] [address] [place] [address] 03/18/2024 Shannon Hancock [facility] [address] [place] [address] 07/08/2024 Shannon Hancock [facility] [address] [place] [address] 09/17/2024 Shannon Hancock Assessments Encounter Date Diagnosis [...] Insured Coverage Start Date Coverage End Date [facility] [address] [place] [id number] Brodie Kulkarni Self - patient is the insured Medical (General) History Medical History History ICD Code High Blood Pressure Surgical History Surgery Date(Month/Year) back surgery 2021 knee surgery 2022
--- OUTSIDE RECORDS SUMMARY | 2024-10-04 12:27 | XMS_ITS ---
Author Organization [facility] Address [address] [place] [address] Care Team Providers Care Marshmallow Maker Name Role Phone Ricky IBARRA, Dustin Primary Care Provider Shannon Malhotra Unavailable [phone] Rescheduled Encounters Encounter Location Date Provider Diagnosis [facility] [address] [place] [address] 09/10/2024 Shannon Hancock Plan Of Treatment No Information Progress Notes * Jorge Alberto KULKARNIroDOB:1970 ( 54 yo M)Acc No.[id number]:09/10/2024 Progress Note Patient:?Brodie KULKARNI Provider:?Shannon Hancock DPM :1970???Age:54 Y???Sex:Male Duong e:09/10/2024 Address:[address], [id number] Pcp:Dustin García MD Subjective: * Chief Complaints: [...]
== END 2024-10-04 10:50 | disposition home or self-care (01) ==
LOC: HO.LNP 10:49
PROVIDERS: Visit Provider Internal Medicine
DX: Z00.00 Encounter for general adult medical examination without abnormal findings (principal); I10 Essential (primary) hypertension; E78.9 Disorder of lipoprotein metabolism, unspecified; Z12.5 Encounter for screening for malignant neoplasm of prostate
CPT/HCPCS: 80053; 80061; 81001; 84153; 85025

== ENCOUNTER 2024-11-28 11:07 | Outpatient (AMB) | payer OTHER, SELFPAY ==
--- NOTE | 2024-11-28 11:09 | MHC.OFFVIS ---
Vital Signs 11/28/24 11:12 Height 5 ft 9 in Weight 241 lb BMI 35.6 Intake Visit Reasons: OV- Lt Knee 07/21/23 brace fitting, Bilateral knee discomfort Intake Note: Brodie is a 54 year old male who presents with complaints of intermittent discomfort in both of his knees after undergoing left knee arthroscopic surgery on 07/21/2023 as well as right knee arthroscopic surgery on 08/09/2024. The patient states that at times his left knee will feel unstable. He denies any right knee instability. Continues with his home exercise program. He does take ibuprofen as needed for his discomfort. Allergies No Known Allergies Allergy (Verified 11/28/24 11:12) Medication List - Last Reconciled 11/28/24 by Kory Mcgrath MD ibuprofen 800 mg PO [lisinopril Lisinopril 10 mg po once daily] omeprazole 20 mg PO FOR[facility] Medical History (Updated 08/09/24 @ 08:10 by Carmen Lazcano RN) GERD (gastroesophageal reflux disease) HTN (hypertension) Hx of renal calculi Surgical History (Updated 08/09/24 @ 08:10 by Carmen Lazcano RN) History of back surgery Hx of repair of right rotator cuff Social History Alcohol intake: never Patient Tobacco Use Status: Never used Tobacco Physical Exam Vital Signs: BMI result Body Mass Index 35.6 Const Other: Well-nourished well-developed very friendly male awake alert and oriented x3 in no acute distress Extrem Other: Bilateral lower extremity examination shows good capillary refill, no skin lesions noted, normal sensation light touch Bilateral knee examination shows that the surgical incisions are well healed, no erythema, minimal discomfort with range of motion Assessment & Plan Assessment & Plan (1) Right knee pain: Code(s): M25.561 - Pain in right knee Category: Medical (2) Left knee pain: Code(s): M25.562 - Pain in left knee Category: Medical Plan Mr. Shad Zelaya continues to do well after undergoing left knee arthroscopic surgery on 07/21/2023 as well as right knee arthroscopic surgery on 08/09/2024. He does have intermittent symptoms of instability in his left knee due to early degenerative joint disease. Thus, I had the patient fitted with a knee brace. I do find that the knee brace is a medical necessity to help prevent future falls. The patient will contact me prior to his follow-up appointment in 3 months should any questions or concerns arise. Feel free to call me at any time should questions regarding his orthopedic management arise. I spent 22 minutes in reviewing the patient's records and imaging studies, seeing the patient and documenting in the medical record. Coding Level of Care Code Est Pt Level 3 (87489) Complex EM visit Add On G2211 Diagnoses Right knee pain M25.561 Left knee pain M25.562
[2024-11-28 11:12] VITALS: BMI 35.6
--- OUTSIDE RECORDS SUMMARY | 2024-11-28 12:38 | XMS_ITS ---
[facility] [place] Address [address] [place] [address] Care Team Providers Care Sleep Scientist Name Role Phone Dustin García MD Primary Care Provider Shannon Malhotra [phone] REASON FOR VISIT No show Encounters Encounter Location Date Provider Diagnosis [facility] [address] [place] [address] 09/17/2024 Shannon Hancock Plan Of Treatment No Information Progress Notes * Jorge Alberto KULKARNIroDOB:1970 ( 54 yo M)Acc No.[id number]:09/17/2024 Patient:?Brodie KULKARNI :1970???Age:54 Y???Sex:Male Address:[address] [place] [address] * true * Date:? Generated for Printi francesca/Rigoberto/eTransmitting on:?11/28/2024 12:38 PM EDT
--- OUTSIDE RECORDS SUMMARY | 2024-11-28 12:38 | XMS_ITS ---
Author Organization Dustin García MD Address [address] [place], [place] [phone] Care Team Providers Care Workers Compensation Claims Adjuster Name Role Phone Dustin García Primary Care [...] Ibuprofen 800 MG [facility] DA[facility] EVERY 8 HOURS for 30 Active ProAir HFA 108 (90 Base) MCG/ACT 1 puff as needed Inhalation every 4 hrs for 30 days 09/20/2019 Not-Taking PARoxetine HCl 40 MG [facility] IN THE MORNING Orally Once a day for 90 days Active Lisinopril-hydroCHLOROthi azide 10-12.5 MG TAKE 1 TABLET BY MOUTH DAILY Orally Once a day for 90 days Active Omeprazole 20 MG TAKE 1 CAPSULE BY MO [facility] EVERY DAY 30 MINUTES BEFORE BREAKFAST [...] Date Provider Diagnosis Dustin García MD [address] [place], [place] [phone] 08/22/2024 Dustin García Unintended weight gain R63.5 [...] Details Follow Up: 6 Months, Reason: complete Progress Notes * Brodie KULKARNI ADOB:1970 (54 yo M)Acc No.[id number]:08/22/2024 Progress Notes Patient:?Brodie KULKARNI A Provider:?Dustin García MD :1970???Age:54 Y???Sex:Male Duong e:08/22/2024 Address:[address], [id number] Subjective: * Chief Complaints: * ???Discuss wt [...] MD Date:?0 08/22/2024 Generated for Jose ma/Rigoberto/eTransmitting on:?11/28/2024 12:38 PM EDT History and Physical Notes * [...]
--- OUTSIDE RECORDS SUMMARY | 2024-11-28 12:39 | XMS_ITS ---
Author Organization [facility] Address [address] [place] [address] Care Team Providers Care Prenatal Genetic Counselor Name Role Phone Ricky IBARRA, Dustin Primary Care Provider Shannon Malhotra Unavailable [phone] Rescheduled Encounters Encounter Location Date Provider Diagnosis [facility] [address] [place] [address] 09/10/2024 Shannon Hancock Plan Of Treatment No Information Progress Notes * Jorge Alberto KULKARNIroDOB:1970 ( 54 yo M)Acc No.[id number]:09/10/2024 Progress Note Patient:?Brodie KULKARNI Provider:?Shannon Hancock DPM :1970???Age:54 Y???Sex:Male Duong e:09/10/2024 Address:[address], [id number] Pcp:Dustin García MD Subjective: * Chief Complaints: [...] Hancock DPM Date:? Generated for Jose ma/Rigoberto/Demar on:?11/28/2024 12:39 PM EDT
--- OUTSIDE RECORDS SUMMARY | 2024-11-28 12:39 | XMS_ITS ---
Author Organization Dustin García MD Address [address] [place] [phone] Care Team Providers Care Enterprise Cloud Architect Name Role Phone Dustin García Primary Care Provider [phone] Allergies No Known Allergies REASON FOR VISIT [...] Location Date Provider Diagnosis Dustin García MD [address] [place] [phone] 10/10/2024 Dustin García Annual physical exam Z00.00 Assessments Encounter Date Diagnosis (ICD Code) Assessment Notes Treatment Notes Treatment Clinical Notes Section Notes 10/10/2024 Annual physical exam (ICD-10 - Z00.00) Plan Of Treatment No Information Progress Notes * Brodie KULKARNI ADOB:1970 (54 yo M)Acc No.[id number]:10/10/2024 Progress Notes Patient:?Brodie KULKARNI Provider:?Dustin García MD :1970???Age:54 Y???Sex:Male Duong e:10/10/2024 Address:[address], [id number] Subjective: * Chief Complaints: * ???1. ANNUAL EXAM. * HPI: ???Depression Screening:?PHQ-9?Little interest or pleasure in doing things?Not at all,?Feeling down, depressed, or hopeless?Not at all,?Trouble falling or staying asleep, or sleeping too much?Not at all,?Feeling tired or having little energy?Not at all,?Poor appetite or overeating?Not at all,?Feeling bad about yourself or that you are a failure, or have let yourself or your family down?Not at all,?Trouble concentrating on things, such as reading the newspaper or watching television?Not at all,?Moving or speaking so slowly that other people could have noticed; or the opposite, being so fidgety or restless that you have been moving around a lot more than usual?Not at all,?Thoughts that you would be better off or of hurting yourself in some way?Not at all,?Total Score?0.?Interpretation and Intervention?Depression Screening Findings?Negative,?Follow-Up for Depression?: review of PHQ-9 found negative result, no follow-up needed.?Communication Needs:?Communication Needs?Does the patient have a hearing impairment?No,?Does the patient have a vision impairment??Yes,?If yes, what is the vision impairment??Glasses,?Does the patient have a cognition impairment??No.?Fall Risk:?History?Have you had any falls with injury in the past year??No,?Have you had two or more falls in the past year??No.?SDOH Questions:?SDOH Questions?In the past year have you been worried about losing housing??No,?In the past year have you or any family members you live with been unable to get any of the following when it was really needed? Check all that apply:?None.?Symptom(s):? patient is a 54 yo male here for annual visit with review of recent labs and follow up of chronic issues. * Medical History:?Colonoscopy done 08/10/[address] Novak (next pending biopsy). * Family History:?Father: john pollard 84 yrs, type II diabetes, hypertension.?Mother: alive 82 yrs, type II diabetes, hypertension.?2 brother(s) , 2 sister(s) - healthy. 3 son(s) , 1 daughter(s) - healthy. .? No pertinent family medical history, Denies mental health/substance abuse family history. * Social History:?Tobacco Use:?Tobacco Use/Smoking?Patient is a?nonsmoker,?Additional Findings: Tobacco Non-User?Current non-smoker, currently using no form of tobacco.?Drugs/Alcohol:?Alcohol Screen?Did you have a drink containing alcohol in the past year??No,?Points?0,?Interpretation?Negative.?Miscellaneous:?Caffeine: yes, frequency:, 1-2 cups per day. Children: yes. Community involvements: yes. Exercise: no. Home smoke detector use: yes. Housing: owning. Living with: spouse, family. Occupation: weeks/months/years, works full- time. Pets: none. Travel outside of the [place]: no. * Allergies:?N.K.D.A. Objective: * Vitals:? * ???Past Orders: ???Lab:Comprehensive [place]. P venecia Fast (Order Date - 10/04/2024) (Collection Date & Time - 10/04/2024 07:15 AM) ? Value Reference Range ?Sodium 141 135-145 - mmo l/L ?Bilirubin Total 0.4 0.0- 1.0 - mg/dL ?Aspartate Amino Transferase 40 H 5-37 - U/L ?Alanine Aminotransferase 44 H 0-40 - U/L ?Total Protein 8.3 H 6.5-8. 0 - g/dL ?Albumin Level 4.5 3.5-5. 0 - g/dL ?Alkaline Phosphatase 96 39-117 - U/L ?Potassium 4.6 3.3-5.1 - mmol/L ?Chloride 105 96-108 - mm ol/L ?Carbon Dioxide 28 22-29 - mmol/L ?Anion Gap 13 12-20 - ?Blood Urea Nitrogen 20 H 9-16 - mg/dL ?Creatinine 0.92 0.5-1.4 - mg/dL ?Estimated Glomerular Filt Rate > 60 - ?Glucose Fasting 110 H 60-9 9 - mg/dL ?Calcium 9.8 8.4-10.2 - m g/dL ???Lab:Lipid Panel (Order Da te - 10/04/2024) (Collection Date & Time - 10/04/2024 07:15 AM) ? Value Reference Range ?Triglycerides 92 <150 - mg/dL ?Cholesterol 213 H <200 - m g/dL ?LDL Cholesterol Calculated 142 H <100 - mg/dL ?HDL Cholesterol 53 >40 - mg/dL ???Lab:PSA,Total (Free>4and< 10) (Order Date - 10/04/2024) (Collection Date & Time - 10/04/2024 07:15 AM) ? Value Reference Range ?PSA,Total (Free>4and<10) 1.97 0.00-4.00 - ng/mL Assessment: * Assessment: 1.?Annual physical exam - Z0 0.00 (Primary)??? Plan: * Treatment: * * The named appointment provid er may or may not be the originator of this progress note, and it is not deemed complete until electronically signed by the appointment provider. Sign off status: Pending * Provider:?Dustin García MD Date:?0 10/10/2024 Generated for Jose ng/Rigoberto/eTransmitting on:?11/28/2024 12:39 PM EDT History and Physical Notes * [...] patient have a vision impairmen t?: Yes ?If yes, what is the vision impairment?: Glasses Does the patient have a cognition impair ment?: No
--- OUTSIDE RECORDS SUMMARY | 2024-11-28 12:39 | XMS_ITS ---
Author Organization Dustin García MD Address [address] [place], [place] [phone] Care Team Providers Care Metal Burnisher Name Role Phone Dustin García Primary Care Provider [phone] REASON FOR VISIT FASTING LABS Encounters Encounter Location Date Provider Diagnosis Dustin García MD [address] [place] [phone] 10/04/2024 Dustin García Blood tests for routine [...] Complete Blood Count Auto Diff 5 Comprehensive [place]. Panel Fast 5 Lipid Panel 10/04/2024 PSA,Total (Free>4and<10) 10/04/2024 UA ClnCatch+Micro w/rflx Cult 10/04/2024 Progress Notes * Brodie KULKARNI ADOB:1970 (54 yo M)Acc No.[id number]:10/04/2024 Progress Note Patient:?Brodie KULKARNI Provider:?Dustin García MD :1970???Age:54 Y???Sex:Male Duong e:10/04/2024 Address:[address], [place], [id number] Subjective: * Chief Complaints: * ???1. FASTING LABS. * Medical History:? Objective: * Vitals:? Assessment: * Assessment: 1.?Blood tests for routine g eneral physical examination - Z00.00 (Primary)???2.?Essential hypertension - I10???3.?Borderline high cholesterol - E78.9??? Plan: * Treatment: 2.?Essential hypertension?LAB: Complete Blood Count Auto Diff ?LAB: Comprehensive [place]. Panel Fast ?LAB: Lipid Panel ?LAB: PSA,Total (Free>4and<10) ?LAB: UA ClnCatch+Micro w/rflx Cult 3.?Borderline high cholester ol?LAB: Complete Blood Count Auto Diff ?LAB: Comprehensive [place]. Panel Fast ?LAB: Lipid Panel ?LAB: PSA,Total (Free>4and<10) ?LAB: UA ClnCatch+Micro w/rflx Cult * Procedure Codes:?83375 VENIP UNCT, ROUTINE* * * The named appointment provid er may or may not be the originator of this progress note, and it is not deemed complete until electronically signed by the appointment provider. Sign off status: Pending * Provider:?Dustin García MD Date:?0 10/04/2024 Generated for Jose ma/Rigoberto/eTransmitting on:?11/28/2024 12:38 PM EDT
--- OUTSIDE RECORDS SUMMARY | 2024-11-28 12:39 | XMS_ITS ---
Author Organization [facility] Address [address] [place] [address] Care Team Providers Care Club Director Name Role Phone Dustin García MD Primary Care Provider Shannon Malhotra Unavailable [phone] Medications Medication SIG (Take, Route, Frequency, Duration) [...] Active Encounters Encounter Location Date Provider Diagnosis [facility] [address] [place] [address] 09/17/2024 Shannon Hancock Plan Of Treatment No Information Progress Notes * Jorge Alberto KULKARNIroDOB:1970 ( 54 yo M)Acc No.[id number]:09/17/2024 Progress Note Patient:?Brodie KULKARNI Provider:?Shannon Hancock DPM :1970???Age:54 Y???Sex:Male Duong e:09/17/2024 Address:[address], [id number] Pcp:Dustin García MD Subjective: * Chief Complaints: [...]
--- OUTSIDE RECORDS SUMMARY | 2024-11-28 12:39 | XMS_ITS | Patient Health Record ---
Author Organization [facility] Address [address] [place] [address] Care Team Providers Care Stencil Maker Name Role Phone Dustin García MD Primary Care Provider Casper Mcwilliams Unavailable [phone] Reason For Referral No Information Medications Medication [...] Problem Screening for malignant neoplasm of colon (858934378) Encounter for screening for malignant neoplasm of colon (Z12.11) Active confirmed Problem Preprocedural examination ([id number]) Preprocedural examination (Z01.818) Active confirmed Plan Of Treatment Pending Test Test Name Order Date Pathology 08/10/2020 Future Test Test Name Order Date COLONOSCOPY 07/07/2020 Insurance Providers Payer Name Payer Address Payer Phone Subscriber Number Group Number Insured Name Patient Relationship to Insured Coverage Start Date Coverage End Date [facility] [address] [facility] [phone] [id number] SOFIA DEE Self - patient is the insured Medical (General) History Medical History History ICD Code Hypertension Denies [place],DM,CVA,Lung disease,renal dise ase Kidney stones Surgical History Surgery Date(Month/Year)
--- OUTSIDE RECORDS SUMMARY | 2024-11-28 12:40 | XMS_ITS | Patient Health Record ---
Author Organization [facility] Address [address] [place] [address] Care Team Providers Care Traffic Division Commanding Officer Name Role Phone Dustin García MD Primary Care Provider Shannon Malhotra Unavailable [phone] Allergies No Known Allergies Reason For Referral [...] Points 0 Interpretation Negative Vital Signs Height 5cl62od in 06/26/2024 Weight 240 lbs 06/26/2024 BMI 34.43 kg/m2 06/26/2024 Encounters Encounter Location Date Provider Diagnosis [facility] [address] [place] [address] 06/26/2024 Shannon Hancock Pain in right toe(s) M79.674 ; Onychomycosis B35.1 ; Pain in left toe(s) M79.675 and Tinea pedis of both feet B35.3 [facility] [address] [place] [address] 03/18/2024 Shannon Hancock [facility] [address] [place] [address] 07/08/2024 Shannon Hancock [facility] [address] [place] [address] 09/17/2024 Shannon Hancock Assessments Encounter Date Diagnosis [...] Insured Coverage Start Date Coverage End Date [facility] [address] [place] [address] [id number] Brodie Kulkarni Self - patient is the insured Medical (General) History Medical History History ICD Code High Blood Pressure Surgical History Surgery Date(Month/Year) back surgery 2021 knee surgery 2022
--- OUTSIDE RECORDS SUMMARY | 2024-11-28 12:40 | XMS_ITS | Patient Health Record ---
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 Name Role Phone Dustin García Primary Care Provider Allergies No Known Allergies Results Component Value Reference Range Notes XR knee RT 3V Reviewed date:04/16/2024 02:37:28 PM Interpretation: Performing Lab: Notes/Report: [address] [address] XRay Report Signed Patient: Brodie Lin MR#: [id number] : 1970 Acct:[id number] Age/Sex: 53 / M ADM Date: 04/09/24 Loc: HO.XRAY Attending Dr: Dustin García MD Ordering Physician: Dustin García MD Date of Service: 04/09/24 Procedure(s): XR knee RT 3V Accession Number(s): [id number] cc: Dustin García MD EXAMINATION: XR KNEE, RIGHT CLINICAL INFORMATION: Acute torn meniscus. Pain and swelling. COMPARISON: None available. TECHNIQUE: Three views of the right knee. FINDINGS: Small joint effusion. No fracture or malalignment. Joint spaces are well-preserved. Soft tissues are unremarkable. Bone mineralization is normal. XR/XR knee RT 3V IMPRESSION: Small joint effusion. No acute osseous findings. Electronically signed by: Kentrell Fernandez MD 04/09/2024 02:20 PM EDT Dictated By: Kentrell Fernandez MD Signed By: <Electronically signed by Kentrell Fernandez MD in OV> 04/09/24 1420 DD/ 1115 TD/TT: 04/09/24 1126 Pattern Carrier: TREY [address] [address] XRay Report Signed Patient: Brodie Lin MR#: [id number] : 1970 Acct:[id number] Age/Sex: 53 / M ADM Date: 04/09/24 Loc: HO.XRAY Attending Dr: Dustin García MD Ordering Physician: Dustin García MD Date of Service: 04/09/24 Procedure(s): XR kne e RT 3V Accession Number(s): [id number] cc: Dustin García MD EXAMINATION: XR KNEE, RIGHT CLINICAL INFORMATION: Acute torn meniscus. Pain and swelling. COMPARISON: None available. TECHNIQUE: Three views of the right knee. FINDINGS: Small joint effusion . No fracture or malalignment. Joint spaces are well-preserved. Soft tissues are unremarkable. Bone mineralization is normal. XR/XR knee RT 3V IMPRESSION: Small joint effusion . No acute osseous findings. Electronically jazmien d by: Kentrell Fernandez MD 04/09/2024 02:20 PM EDT Dictated By: Kentrell Fernandez MD Signed By: <Electronically signed by Kentrell Fernandez MD in OV> 04/09/24 1420 DD/ 1115 TD/TT: 04/09/24 1126 Pattern Carrier: TREY MR knee RT wo con Reviewed date:07/06/2024 02:43:16 PM Interpretation: Performing Lab: Notes/Report: [address] [address] Magnetic Resonance Report Signed Patient: Brodie Lin MR#: [id number] : 1970 Acct:[id number] Age/Sex: 54 / M ADM Date: 06/08/24 Loc: HO.MRI Attending Dr: Kory Queen MD Ordering Physician: Kory Queen MD Date of Service: 06/08/24 Procedure(s): MR knee RT wo con Accession Number(s): [id number] cc: Dustin García MD; Kory Queen MD EXAMINATION: MR KNEE WITHOUT CONTRAST, RIGHT CLINICAL INFORMATION: Knee pain. COMPARISON: None available. TECHNIQUE: MRI of the knee without contrast was performed using routine sequences on a high-field scanner. FINDINGS: MENISCI: Medial Meniscus: Complex tear of the posterior horn. Tear includes an oblique tear extending to the undersurface, superior surface tearing, free-edge fraying/tearing. Horizontal undersurface tear in the posterior body. Linear signal in the anterior horn extending to the articular surfaces, suspicious for a tear. Adjacent 6 mm paralabral cyst. Lateral Meniscus: Minimal degenerative fraying of the posterior root/central posterior horn. LIGAMENTS: Cruciate: Increased T2 signal in the ACL from mucoid degeneration plus/minus sprain/partial tear. Intact PCL. Collateral: Possible mild MCL sprain, with edema associated with the ligament. Intact LCL complex. EXTENSOR MECHANISM: Intact. ARTICULAR CARTILAGE/BONE: Patellofemoral Compartment: Patchy medial patellar facet chondral heterogeneity. Medial Compartment: Chondral heterogeneity and irregularity in the weightbearing medial femoral condyle. Lateral Compartment: No significant chondral loss. No fracture. No suspicious marrow signal changes. JOINT FLUID AND BURSAE: Moderate effusion. Posterior 12 x 7 mm loose body. Trace Wilburn's cyst. Mild edema in the soleus, lateral gastrocnemius muscle, perhaps strain. MR/MR knee RT wo con IMPRESSION: 1. Tear of the posterior horn, body and anterior horn of the medial meniscus. 6 mm paralabral cyst. 2. Minimal degenerative fraying of the posterior root/central posterior horn of the lateral meniscus. 3. ACL findings could reflect mucoid degeneration plus/minus sprain/partial tear. 4. Possible mild MCL sprain. 5. Mild patellofemoral and medial compartment arthritis. 6. Moderate effusion. 12 x 7 mm loose body. 7. Mild edema in the soleus and lateral gastrocnemius muscle, perhaps strain. Electronically signed by: Kleber Lazaro MD 06/21/2024 04:23 PM [facility] Dictated By: Kleber Lazaro MD Signed By: <Electronically signed by Kleber Lazaro MD in OV> 06/21/24 1623 DD/ 33 TD/TT: 06/08/241943 Pattern Carrier: [address] [address] Magnetic Resonance Report Signed Patient: Brodie Lin MR#: [id number] : 1970 Acct:[id number] Age/Sex: 54 / M ADM Date: 06/08/24 Loc: HO.MRI Attending Dr: Kory Queen MD Ordering Physician: Kory Queen MD Date of Service: 06/08/24 Procedure(s): MR nilsa e RT wo con Accession Number(s): [id number] cc: Dustin García MD; Kory Queen MD EXAMINATION: MR KNEE WITHOUT CONTRAST, RIGHT CLINICAL INFORMATION: Knee pain. COMPARISON: None available. TECHNIQUE: MRI of the knee with out contrast was performed using routine sequences on a high-field scanner. FINDINGS: MENISCI: Medial Meniscus: Complex tear of the posterior horn. Tear includes an oblique tear extendi ng to the undersurface, superior surface tearing, free-edge fraying/tearing. Horizontal undersurface tear in the posterior body. Line ar signal in the anterior horn extending to the articular surfaces, suspicious for a tear. Adjacent 6 mm paralabral cyst. Lateral Meniscus: Minimal degenerative fraying of the posterior root/central posteri or horn. LIGAMENTS: Cruciate: Increased T2 signal in the ACL from mucoid degeneration plus/minus sprain/partial tear. Intact PCL. Collateral: Possible mild MCL sprain, with edema associated with the ligament. Intact LCL complex. EXTENSOR MECHANISM: Intact. ARTICULAR CARTILAGE/BONE: Patellofemoral Compartment: Patchy medial patellar facet chondral heterogeneity. Medial Compartment: Chondral heterogeneity and irregularity in the weightbearing medial femoral condyle. Lateral Compartment: No significant chondral loss. No fracture. No suspicious marrow signal changes. JOINT FLUID AND BURS AE: Moderate effusion. Posterior 12 x 7 mm loose body. Trace Wilburn's cyst. Mild edema in the soleus, lateral gastrocnemius muscle, perhaps strain. MR/MR knee RT wo con IMPRESSION: 1. Tear of the posterior horn, body and anterior horn of the medial meniscus. 6 mm paralabral cyst. 2. Minimal degenerat glenn fraying of the posterior root/central posterior horn of the lateral meniscus. 3. ACL findings coul d reflect mucoid degeneration plus/minus sprain/partial tear. 4. Possible mild MCL sprain. 5. Mild patellofemor al and medial compartment arthritis. 6. Moderate effusion . 12 x 7 mm loose body. 7. Mild edema in the soleus and lateral gastrocnemius muscle, perhaps strain. Electronically jazmine d by: Kleber Lazaro MD 06/21/2024 04:23 PM EST Dictated By: Kleber Lazaro MD Signed By: <Electronically signed by Kleber Lazaro MD in OV> 06/21/241622 DD/ 33 TD/TT: 06/08/241943 Pattern Carrier: HB Complete Blood Count Auto Di ff Reviewed date:10/04/2024 05:08:12 PM Interpretation: Performing Lab:[facility], [address] [place] [phone] Notes/Report: White Blood Count 9.1 4.8-10.8 X10*3/uL Red Blood Count 4.86 4.60-5.80 X10*6/uL Hemoglobin 13.4 14.0-18.0 g/dl Hematocrit 41.8 42.0-52.0 % Mean Corpuscular Volume 86.0 80.0-98.0 fL Mean Corpuscular Hemoglobin 27.6 27.0-33.0 pg Mean Corpuscular HGB Conc 32.1 31.0-36.0 g/dl Red Cell Distribution Width 13.9 11.0-16.0 % Platelet Count 266 160-400 X10*3/uL Mean Platelet Volume 11.3 9.4-12.4 fL Neutrophils Percent Auto 59.4 45-73 % Imm Gran Pct Auto 0.2 0.0-0.4 % Lymphocytes Percent Auto 28.8 20-40 % Monocytes Percent Auto 8.6 2-11 % Eosinophils Percent Auto 2.1 0-4 % Basophils Percent Auto 0.9 0-2 % NRBC Pct Auto 0.0 0.0-0.2 /100WBC Neutrophils Absolute Auto 5.4 2.0-8.3 x10*3/u L Imm Gran Abs Auto 0.02 0.00-0.03 X10*3/uL Lymphocytes Absolute Auto 2.6 1.2-4.9 X10*3/u L Monocytes Absolute Auto 0.8 0.1-1.2 X10*3/uL Eosinophils Absolute Auto 0.2 0.0-0.4 X10*3/u L Basophils Absolute Auto 0.1 0.0-0.2 X10*3/uL NRBC Abs Auto 0.000 0.0-0.012 X10*3/uL Comprehensive [place]. Panel Fa st Reviewed date:10/04/2024 12:46:30 PM Interpretation: Performing Lab:[facility], [address] [place] [phone] Notes/Report: Sodium 141 135-145 mmol/L Potassium 4.6 3.3-5.1 mmol/L Chloride 105 96-108 mmol/L Carbon Dioxide 28 22-29 mmol/L Anion Gap 13 12-20 Blood Urea Nitrogen 20 9-16 mg/dL Creatinine 0.92 0.5-1.4 mg/dL Estimated Glomerular Filt Rate > 60 Chronic Kidney Disease: Estimated GFR < 60 mL/min/1.73m2 Severe Kidney Disease: Estimated GFR < 15 mL/min/1.73m2 Glucose Fasting 110 60-99 mg/dL A fasting glucose from 100-125 mg/dl is considered impaired (pre-diabetes). Calcium 9.8 8.4-10.2 mg/dL Bilirubin Total 0.4 0.0-1.0 mg/dL Aspartate Amino Transferase 40 5-37 U/L Alanine Aminotransferase 44 0-40 U/L Total Protein 8.3 6.5-8.0 g/dL Albumin Level 4.5 3.5-5.0 g/dL Alkaline Phosphatase 96 39-117 U/L Lipid Panel Reviewed date:10/04/2024 12:17:51 PM Interpretation: Performing Lab:[facility], [address] [place] [phone] Notes/Report: Triglycerides 92 <150 mg/dL Desirable Triglyceride: less than 150 mg/dL Borderline High Triglyceride 150-199 mg/dL High Triglyceride: 200-499 mg/dL Very High Triglyceride: greater than or equal to 5OO mg/dL Cholesterol 213 <200 mg/dL Desirable Cholesterol: less than 200 mg/dL Borderline High Cholesterol: 200-239 mg/dL High Cholesterol: greater than 239 mg/dL LDL Cholesterol Calculated 142 <100 mg/dL Desirable LDL: less than 100 mg/dL Near Optimal/Above Optimal LDL: 110-129 mg/dL Borderline High LDL: 130-159 mg/dL High LDL: 160-189 mg/dL Very High LDL: greater than or equal to 190 mg/dL HDL Cholesterol 53 >40 mg/dL Desirable HDL: greater than 40 mg/dL Note: This HDL assay may give artificially low results in patients with liver disease. PSA,Total (Free>4and<10) Reviewed date:10/04/2024 12:17:42 PM Interpretation: Performing Lab:[address] [phone] Notes/Report: PSA,Total (Free>4and<10) 1.97 0.00-4.00 ng/mL A Free PSA was not performed: The percentage of Free PSA can be used to enhance the differentiation of prostate cancer from benign prostatic disease in subjects whose PSA levels are between 4.0 and 10.0 ng/mL. For subjects whose PSA levels are below 4.0 or above 10.0 ng/mL, the risk of prostate cancer is determined on the basis of the PSA alone. Therefore the % Free PSA is recommended only for those subjects whose PSA levels are between 4.0 and 10.0 ng/mL. PSA methodology: Davalos Alinity i Chemiluminescent Microparticle Immunoassay (CMIA) UA ClnCatch+Micro w/rflx Cul t Reviewed date:10/04/2024 05:06:34 PM Interpretation: Performing Lab:[facility], [address] [place] [phone] Notes/Report: Urine, Clean Catch Color Urine Yellow Appearance Urine Clear PH 5.5 5.0-9.0 Glucose Urine UA Negative Negative mg/dL Urine Blood Negative Negative Specific [place] - Urine 1.020 1.005-1.025 Urine Protein Negative Neg-Trace mg/dL Urine Ketones Negative Negative mg/dL Nitrite Urine Negative Negative Leukocyte Esterase Urine Negative Negative RBC Urine 0-2 0-2 /HPF WBC Urine 0-5 0-5 /HPF Squamous Epithelial Cell Urine 0-2 0-2 /HPF Bacteria Urine None Seen None Seen Hyaline Casts Urine 0-2 0-2 /LPF Reason For Referral Reason acute torn meniscus [...] faxed x-rays pending to be done at [facility] [place] [place] , Belen Landaverde 04/11/2024 01:27:38 PM EDT > spoke with Ortho regrading appt. X-ray results are being forwarded to the provider for a sooner appt , Belen Landaverde 04/12/2024 11:20:59 AM EDT > spoe with [facility] [place] [place] Ortho, they said they are trying to et a hold of pt with no response, call and spoke with pt told him to call them., Belen Landaverde 04/12/2024 11:58:51 AM EDT > patient is aware of appt Appt is with Dr. Queen Referral Priority Routine Referral Appointment Date 04/25/2024 Medications Medication SIG (Take, Route, Frequency, Duration) Notes Start Date End Date Status Azelastine HCl 0.05 % 1 drop into affect ed eye Ophthalmic Twice a day for 30 days 10/06/2020 Not-Taking Tums 500 MG 1 tablet Orally Once a day for 30 day(s) Not-Taking Omeprazole 20 MG TAKE 1 CAPSULE BY MO [facility] EVERY DAY 30 MINUTES BEFORE BREAKFAST for 90 Active Fluticasone Propionate 50 MCG/ACT SHAKE LIQUID AND USE 1 SPRAY IN EACH NOSTRIL EVERY DAY for 60 Not-Taking PARoxetine HCl 40 MG TAKE 1 TABLET BY MO UT EVERY DAY IN THE MORNING for 30 Active Lisinopril-hydroCHLOROthi azide 10-12.5 MG TAKE 1 TABLET BY MOUTH DAILY Orally Once a day for 90 days Active Ibuprofen 800 MG TAKE 1 TABLET BY SERGEI TH THREE TIMES DAILY EVERY 8 HOURS for 30 Active Sildenafil Citrate 50 MG TAKE ONE TABLET BY MOUTH EVERY DAY NEEDED for 30 Active ProAir HFA 108 (90 Base) MCG/ACT 1 puff as needed Inhalation every 4 hrs for 30 days 09/20/2019 Not-Taking Albuterol Sulfate HFA 108 (90 Base) MCG/ACT 1 puff as needed Inhalation every 4 hrs for 30 days 07/26/2022 Active Immunizations Vaccine Route Administration Date Status Comme nts Flu Vaccine Unknown 04/19/2012 Administered Flu Vaccine IM Intramuscular 04/29/2013 Administered TDaP IM Intramuscular 01/13/2015 Administered Flu Vaccine IM Intramuscular 04/17/2015 Administered Fluarix Quadrivalent IM Intramuscular 04/10/2017 Administe red Fluarix Quadrivalent IM Intramuscular 04/19/2018 Administe red Fluarix Quadrivalent IM Intramuscular 05/28/2019 Administe red Fluarix Quadrivalent IM Intramuscular 06/01/2020 Administe red SARS-COV-2 Moderna Unknown 11/27/2020 Administered SARS-COV-2 Moderna Unknown 12/30/2020 Administered Fluarix Quadrivalent IM Intramuscular 07/05/2021 Administe red SARS-COV-2 Pfizer Unknown 10/07/2021 Administered Fluarix Quadrivalent IM Intramuscular 05/10/2022 Administe red Fluarix Quadrivalent IM Intramuscular 05/26/2023 Administe red Fluarix Quadrivalent - 150 IM Intramuscular 04/09/2024 Adm inistered Tetanus Unknown 01/13/2015 Pending Social History Tobacco Use: Social History Observation [...] ast year? 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 Problem 690121044 Other obesity (E66.8) Active confirmed Problem 8344679 Primary insomnia (F51.01) Active confirmed Problem 765271862 Erectile dysfunction due to diseases classified elsewhere (N52.1) Active confirmed Problem 041269559 Lumbar disc disease (M51.9) Active confirmed Problem 64316562 Essential hypertension (I10) Active confirmed Problem 704461692 Environmental allergies (Z91.09) Active confirmed Problem 233495062 Panic attack (F41.0) Active confirmed Problem 520757841 Borderline high cholesterol (E78.9) Active confirmed Problem 365003789 Body mass index (BMI) of 30.0 to 30.9 in adult (Z68.30) Active confirmed Vital Signs Blood pressure diastolic 72 mm Hg 08/22/2024 karla ght is up 10 pounds since 04-09-24 Height 70 in 08/22/2024 weight is up 10 pounds since 04-09-24 Blood pressure systolic 130 mm Hg 08/22/2024 weig ht is up 10 pounds since 04-09-24 Weight 249 lbs 08/22/2024 weight is up 10 pounds since 04-09-24 BMI 35.72 kg/m2 08/22/2024 weight is up 10 pounds since 04-09-24 Encounters Encounter Location Date Provider Diagnosis Dustin García MD [address] [place] [address] Drive [address] [place] [id number] 10/04/2024 Dustin García Blood tests for routine general physical examination Z00.00 ; Essential hypertension I10 and Borderline high cholesterol E78.9 Dustin García MD [address] [place] [address] Drive [address] [place] [id number] 01/12/2024 Dustin García Body mass index (BMI ) of 30.0 to 30.9 in adult Z68.30 and Other obesity E66.8 Dustin García MD [address] [place] [address] Drive [address] [place] [id number] 04/09/2024 Dustin García Encounter for immunization Z23 and Acute torn meniscus S83.209A Dustin García MD [address] [place] [id number] 08/22/2024 Dustin García Unintended weight gain R63.5 ; Essential hypertension I10 and Panic attack F41.0 Assessments Encounter Date Diagnosis (ICD Code) Assessment Notes Treatment Notes Treatment Clinical Notes Section Notes 10/04/2024 Blood tests for routine general physical examination (ICD-10 - Z00.00) 01/12/2024 Body mass index (BMI) of 30.0 to 30.9 in adult (ICD-10 - Z68.30) discussed the meds and need for staying on meds forever. says he comes home and eats until he cant eat anymore 01/12/2024 Other obesity (ICD-10 - E66.8) 04/09/2024 Encounter for immunization (ICD-10 - Z23) flu vaccine administed 04/09/2024 Acute torn meniscus (ICD-10 - S83.209A) referral to dr queen/ x-ray order faxed to both [facility] [place] [place] patient Reg numbers. patient verbalized understanding of medication and directions for use 08/22/2024 Unintended weight gain (ICD-10 - R63.5) discussed the meds and and he doesn't want to stay on meds 10/04/2024 Essential hypertension (ICD-10 - I10) 08/22/2024 Essential hypertension (ICD-10 - I10) 10/04/2024 Borderline high cholesterol (ICD-10 - E78.9) 08/22/2024 Panic attack (ICD-10 - F41.0) Plan Of Treatment Pending Test Test Name Order Date CT ABD & PELVIS WITH CONTRAST 06/02/2022 MRI LUMBAR SPINE NO CONTRAST 04/12/2022 MRI LUMBAR SPINE W&WO CONTRAST 2 XR CHEST 2 VIEW PA & LAT 06/10/2013 XR GI SERIES 07/05/2013 Complete Blood Count Auto Diff 5 Comprehensive [place]. Panel Fast 5 Lipid Panel 10/04/2024 PSA,Total (Free>4and<10) 10/04/2024 MR lumbar spine wo con 07/05/2021 US venous duplex LE LT 04/11/2023 XR knee RT 3V 04/09/2024 UA ClnCatch+Micro w/rflx Cult 10/04/2024 Insurance Providers Payer Name Payer Address Payer Phone Subscriber Number Group Number Insured Name Patient Relationship to Insured Coverage Start Date Coverage End Date [facility] [address] [place] [address] [phone] [id number] Brodie Kulkarni Self - patient is the insured 9 [place] [employer] [address] [place] [address] [id number] DOI 21 Brodie Kulkarni Self - patient is the insured Formerly [facility] e [address] [place] [address] [id number] DOI 2022 Brodie Kulkarni Self - patient is the insured Medical (General) History Medical History History ICD Code Colonoscopy done 08/10/[address] Novak (n ext pending biopsy)
== END 2024-11-28 11:27 | disposition home or self-care (01) ==
LOC: HO.HOS 11:08
PROVIDERS: PCP Internal Medicine; Visit Provider Orthopaedic Surgery
DX: M25.561 Pain in right knee (principal); M25.562 Pain in left knee
CPT/HCPCS: 99213

== ENCOUNTER 2024-12-26 08:40 | Outpatient (REF) | payer OTHER, SELFPAY ==
--- NOTE | ~2024-12-26 | XR_ITS ---
EXAMINATION: XR CHEST 2 VIEWS HISTORY: ASTHMA COMPARISON: There are no prior studies available for comparison. FINDINGS: PA and lateral views of the chest are submitted. There are low lung volumes. The lungs are clear. There is no pleural effusion, pneumothorax, or pulmonary vascular congestion. The heart is normal in size. The bones are intact. XR/XR chest 2V IMPRESSION: No acute cardiopulmonary abnormality. Electronically signed by: Casper oNrth MD 12/26/2024 10:37 AM EDT
--- OUTSIDE RECORDS SUMMARY | 2024-12-26 09:08 | XMS_ITS | Patient Health Record ---
Author Organization [facility] Address [address] [place] [address] Care Team Providers Care Forest Botany Instructor Name Role Phone Dustin García MD Primary Care Provider Casper Mcwilliams Unavailable [phone] Reason For Referral No Information Medications Medication [...] Problem Screening for malignant neoplasm of colon (044726534) Encounter for screening for malignant neoplasm of colon (Z12.11) Active confirmed Problem Preprocedural examination (578444351440322) Preprocedural examination (Z01.818) Active confirmed Plan Of Treatment Pending Test Test Name Order Date Pathology 08/10/2020 Future Test Test Name Order Date COLONOSCOPY 07/07/2020 Insurance Providers Payer Name Payer Address Payer Phone Subscriber Number Group Number Insured Name Patient Relationship to Insured Coverage Start Date Coverage End Date [facility] [address] [facility] [phone] [id number] SOFIA KULKARNI Self - patient is the insured Medical (General) History Medical History History ICD Code Hypertension Denies [place],DM,CVA,Lung disease,renal dise ase Kidney stones Surgical History Surgery Date(Month/Year)
[2024-12-26 10:36] LABS: Influenza A PCR NEGATIVE (Negative); Influenza B PCR NEGATIVE (Negative); Resp Syncy Virus RNA Qual PCR NEGATIVE (Negative); SARS COV2 PCR INHOUSE NEGATIVE (Negative)
== END 2024-12-26 08:41 | disposition home or self-care (01) ==
LOC: HO.LAB 08:40
PROVIDERS: Visit Provider Internal Medicine
DX: J45.909 Unspecified asthma, uncomplicated (principal)
CPT/HCPCS: 0241U; 71046

== ENCOUNTER → 2024-12-26 08:59 | Outpatient (BNV) | payer OTHER, SELFPAY | PROVIDERS: Visit Provider Radiology Diagnostic Radiology | DX: J45.909 Unspecified asthma, uncomplicated (principal) | CPT/HCPCS: 71046 ==

== ENCOUNTER → 2025-05-01 10:33 | Outpatient (BNVA) | payer OTHER, SELFPAY | PROVIDERS: Visit Provider Emergency Medicine | DX: S30.0XXD Contusion of lower back and pelvis, subsequent encounter (principal); W17.89XD Other fall from one level to another, subsequent encounter; Z02.79 Encounter for issue of other medical certificate | CPT/HCPCS: 72100; 99203 ==

== ENCOUNTER → 2025-05-12 10:52 | Outpatient (BNVA) | payer OTHER, SELFPAY | PROVIDERS: Visit Provider Emergency Medicine | DX: S39.012D Strain of muscle, fascia and tendon of lower back, subsequent encounter (principal); W17.89XD Other fall from one level to another, subsequent encounter | CPT/HCPCS: 99213 ==

== ENCOUNTER → 2025-05-28 08:10 | Outpatient (BNVA) | payer OTHER, SELFPAY | PROVIDERS: Visit Provider Emergency Medicine | DX: M54.50 Low back pain, unspecified (principal); M79.671 Pain in right foot; R20.0 Anesthesia of skin | CPT/HCPCS: 99213 ==

== ENCOUNTER 2025-05-31 09:52 | Outpatient (REF) | payer OTHER, SELFPAY ==
--- OUTSIDE RECORDS SUMMARY | 2024-01-12 05:45 | XMS_ITS ---
Author Organization Dustin García MD Address [address] [place], [place] [id number] Care Team Providers Care Physical Therapy Aid Name Role Phone Dustin García Primary Care Provider Allergies No Known Allergies REASON FOR VISIT fatigue x 2weeks tested negative Covid this AM Medications Medication SIG (Take, Route, Frequency, Duration) Notes Start Date End Date Status Lisinopril-hydroCHLOROthi azide 10-12.5 MG TAKE 1 TABLET BY MOUTH DAILY for 90 Active Ibuprofen 800 MG TAKE 1 TABLET BY SERGEI THREE TIMES DAILY( EVERY 8 HOURS) for 30 Active Fluticasone Propionate 50 MCG/ACT SHAKE LIQUID AND USE 1 SPRAY IN EACH NOSTRIL EVERY DAY for 60 Not-Taking Azelastine HCl 0.05 % 1 drop into affect ed eye Ophthalmic Twice a day for 30 days 10/06/2020 Not-Taking Tums 500 MG 1 tablet Orally Once a day for 30 day(s) Not-Taking Albuterol Sulfate HFA 108 (90 Base) MCG/ACT 1 puff as needed Inhalation every 4 hrs for 30 days 07/26/2022 Active Sildenafil Citrate 50 MG TAKE ONE TABLET BY MOUTH EVERY DAY NEEDED for 30 Active PARoxetine HCl 40 MG TAKE 1 TABLET BY MO UTH EVERY DAY IN THE MORNING for 30 Active ProAir HFA 108 (90 Base) MCG/ACT 1 puff as needed Inhalation every 4 hrs for 30 days 09/20/2019 Not-Taking Omeprazole 20 MG TAKE 1 CAPSULE BY MO UTH EVERY DAY 30 MINUTES BEFORE BREAKFAST for 90 Active Problems Problem Type SNOMED Code ICD Code Onset Dates Problem Status W/U Status Risk Notes Problem 356433081 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 Problem 278411609 Other obesity (E66.8) Active confirmed Vital Signs Blood pressure systolic 132 mm Hg 01/12/20 Blood pressure diastolic 70 mm Hg 024 Height 70 in 01/12/2024 Weight 247 lbs 01/12/2024 BMI 35.44 kg/m2 01/12/2024 weight is up 12 pounds since 09-01-23 Encounters Encounter Location Date Provider Diagnosis Dustin García MD [address] [place] [address] Drive [address] [place] [phone] 01/12/2024 Dustin García Body mass index (BMI) of 30.0 to 30.9 in adult Z68.30 and Other obesity E66.8 Assessments Encounter Date Diagnosis (ICD Code) Assessment Notes Treatment Notes Treatment Clinical Notes Section Notes 01/12/2024 Body mass index (BMI) of 30.0 to 30.9 in adult (ICD-10 - Z68.30) discussed the meds and need for staying on meds forever. says he comes home and eats until he cant eat anymore 01/12/2024 Other obesity (ICD-10 - E66.8) Plan Of Treatment Treatment Notes Assessment Notes Body mass index (BMI) of 30. 0 to 30.9 in adult discussed the meds and need for staying on meds forever. says he comes home and eats until he cant eat anymore Next Appt Details Provider Name:Dustin montague, 06/24/2025 07:30:00 AM, [address] [place] [address], [address], [phone], Provider Name:Dustin montague, 07/01/2025 02:30:00 PM, [address] [place] [address], [address], [phone], Progress Notes * Brodie KULKARNI ADOB:1970 (53 yo M)Acc No.[id number]:01/12/2024 Progress Notes Patient: Denys schreiber Brodie Haro Provider: Juan García MD :1970 A ge:53 Y S ex:Male Date:01/12/2024 Address:[address], [place], [id number] Subjective: * Chief Complaints: * f atigue x 2weeks tested negative Covid this AM * HPI: S ymptom(s): patient is a 53 yo male complaining he is tired all the time. gaining weight. working 60 hours. * ROS: G eneral/Constitutional: Denies C hills. A dmits F atigue. D enies F ever. D enies H eadache. E NT: Patient denies d ecreased sense of smell , any loss of taste , sore throat. D enies S ore throat. R espiratory: Denies C ough. D enies S hortness of breath at rest. D enies S hortness of breath with exertion. G astrointestinal: Denies D iarrhea. D enies N ausea. M usculoskeletal: Patient denies m uscle aches. P eripheral Vascular: Patient denies r ed and blue toes. * Medical History: * Surgical History: * Hospitalization/Major Diagno stic Procedure: * Medications: T akingOmeprazole 20 MG Capsule Delayed Release TAKE 1 CAPSULE BY MOUTH EVERY DAY 30 MINUTES BEFORE BREAKFAST Albuterol Sulfate HFA 108 (90 Base) MCG/ACT Aerosol Solution 1 puff as needed Inhalation every 4 hrsSildenafil Citrate 50 MG Tablet TAKE ONE TABLET BY MOUTH EVERY DAY NEEDED PARoxetine HCl 40 MG Tablet TAKE 1 TABLET BY MOUTH EVERY DAY IN THE MORNING Lisinopril-hydroCHLOROthiazide 10-12.5 MG Tablet TAKE 1 TABLET BY MOUTH DAILY Ibuprofen 800 MG Tablet TAKE 1 TABLET BY MOUTH THREE TIMES DAILY( EVERY 8 HOURS) Taking Omeprazole 20 MG Capsule Delayed Release TAKE 1 CAPSULE BY MOUTH EVERY DAY 30 MINUTES BEFORE BREAKFAST Taking Albuterol Sulfate HFA 108 (90 Base) MCG/ACT Aerosol Solution 1 puff as needed Inhalation every 4 hrsTaking Sildenafil Citrate 50 MG Tablet TAKE ONE TABLET BY MOUTH EVERY DAY NEEDED Taking PARoxetine HCl 40 MG Tablet TAKE 1 TABLET BY MOUTH EVERY DAY IN THE MORNING Taking Lisinopril-hydroCHLOROthiazide 10-12.5 MG Tablet TAKE 1 TABLET BY MOUTH DAILY Taking Ibuprofen 800 MG Tablet TAKE 1 TABLET BY MOUTH THREE TIMES DAILY( EVERY 8 HOURS) Not-Taking/PRNFluticasone Propionate 50 MCG/ACT Suspension SHAKE LIQUID AND USE 1 SPRAY IN EACH NOSTRIL EVERY DAY Azelastine HCl 0.05 % Solution 1 drop into affected eye Ophthalmic Twice a dayTums 500 MG Tablet Chewable 1 tablet Orally Once a dayProAir HFA 108 (90 Base) MCG/ACT Aerosol Solution 1 puff as needed Inhalation every 4 hrsMedication List reviewed and reconciled with the patientNot- Taking/PRN Fluticasone Propionate 50 MCG/ACT Suspension SHAKE LIQUID AND USE 1 SPRAY IN EACH NOSTRIL EVERY DAY Not-Taking/PRN Azelastine HCl 0.05 % Solution 1 drop into affected eye Ophthalmic Twice a dayNot-Taking/PRN Tums 500 MG Tablet Chewable 1 tablet Orally Once a dayNot-Taking/PRN ProAir HFA 108 (90 Base) MCG/ACT Aerosol Solution 1 puff as needed Inhalation every 4 hrsMedication List reviewed and reconciled with the patient * Allergies: N .K.D.A.yes[Allergies Verified] Objective: * Vitals: H t: 70, Wt:247, BMI:35.44, BP:132/70 weight is up 12 pounds since 09-01-23. * Examination: G eneral Examination: GENERAL APPEARANCE: alert, well hydrated, in no distress . HEAD: normocephalic. SKIN: g ood turgor. HEART: no murmurs, rubs, gallops, regular rate and rhythm. LUNGS: no wheezes, rales, rhonchi, good air movement, clear to auscultation bilaterally. Assessment: * Assessment: 1. O ther obesity - E66.8 (Primary) 2 . B carey mass index (BMI) of 30.0 to 30.9 in adult - Z68.30 Plan: * Treatment: * Procedure Codes: * * Sign off status: Completed true * Provider: Juan García MD Date: 0 01/12/2024 Generated for Jose ma/Rigoberto/Demar on: 1 07/31/2024 09:57 AM EST History and Physical Notes * HPI (History of Present Illness) Category Sub-Category Detail Notes Category Not es Symptom(s) patient is a 53 yo male complaining he is tired all the time. gaining weight. working 60 hours Examination Category Sub-Category Detail Notes Category Not es General Examination GENERAL APPEARANCE: alert, w ell hydrated, in no distress HEAD: normocephalic HEART: no murmurs, rubs, ga llops, regular rate and rhythm LUNGS: no wheezes, rales, r honchi, good air movement, clear to auscultation bilaterally SKIN: good turgor
--- OUTSIDE RECORDS SUMMARY | 2024-04-09 05:00 | XMS_ITS ---
Author Organization Dustin García MD Address [address] [place], [place] [id number] Care Team Providers Care Nanoelectronics Engineer Name Role Phone Dustin García Primary Care Provider Allergies No Known Allergies Reason For Referral Reason acute torn meniscus please booked patient for a soon appointment Right knee Diagnosis 1 Acute torn meniscus (S83.209A) Referral Organization Dustin García MD Referring Provider First Name Dustin Referring Provider Last Name Ricky Referring Provider Speciality Internal M edicine Referred Provider Bar Dawkins Referred Provider Specialty Orthopedic S urgery General Notes Belen Landaverde 10:39:51 AM EDT > info faxed x-rays pending to be done at [facility] , Belen Landaverde 04/11/2024 01:27:38 PM EDT > spoke with Ortho regrading appt. X-ray results are being forwarded to the provider for a sooner appt , Belen Landaverde 04/12/2024 11:20:59 AM EDT > spoe with [facility] Ortho, they said they are trying to et a hold of pt with no response, call and spoke with pt told him to call them., Belen Landaverde 04/12/2024 11:58:51 AM EDT > patient is aware of appt Appt is with Dr. Queen Referral Priority Routine Referral Appointment Date 04/25/2024 REASON FOR VISIT right knee pain x 10 days Medications Medication SIG (Take, Route, Frequency, Duration) Notes Start Date End Date Status Azelastine HCl 0.05 % 1 drop into affect ed eye Ophthalmic Twice a day for 30 days 10/06/2020 Not-Taking traMADol HCl 50 MG 1 tablet as needed Orally every 8 hrs as needed for 10 days 04/09/2024 Active Ibuprofen 800 MG TAKE 1 TABLET BY SERGEI TH THREE TIMES DAILY( EVERY 8 HOURS) Active Tums 500 MG 1 tablet Orally Once a day for 30 day(s) Not-Taking ProAir HFA 108 (90 Base) MCG/ACT 1 puff as needed Inhalation every 4 hrs for 30 days 09/20/2019 Not-Taking Fluticasone Propionate 50 MCG/ACT SHAKE LIQUID AND USE 1 SPRAY IN EACH NOSTRIL EVERY DAY for 60 Not-Taking Omeprazole 20 MG TAKE 1 CAPSULE BY MO [facility] EVERY DAY 30 MINUTES BEFORE BREAKFAST for 90 Active PARoxetine HCl 40 MG TAKE 1 TABLET BY MO [facility] EVERY DAY IN THE MORNING for 30 Active Lisinopril-hydroCHLOROthi azide 10-12.5 MG TAKE 1 TABLET BY MOUTH DAILY for 90 Active Sildenafil Citrate 50 MG TAKE ONE TABLET BY MOUTH EVERY DAY NEEDED for 30 Active Albuterol Sulfate HFA 108 (90 Base) MCG/ACT 1 puff as needed Inhalation every 4 hrs for 30 days 07/26/2022 Active Immunizations Vaccine Route Administration Date Status Comme nts Fluarix Quadrivalent - 150 IM Intramuscular 04/09/2024 Adm inistered Vital Signs Blood pressure systolic 158 mm Hg 04/09/20 24 Blood pressure diastolic 70 mm Hg 024 Height 70 in 04/09/2024 Weight 239 lbs 04/09/2024 BMI 34.29 kg/m2 04/09/2024 weight is down 8 pounds [facility] 01-12-24 Encounters Encounter Location Date Provider Diagnosis Dustin García MD [address] [place], [place] [phone] 04/09/2024 Dustin García Encounter for immunization Z23 and Acute torn meniscus S83.209A Assessments Encounter Date Diagnosis (ICD Code) Assessment Notes Treatment Notes Treatment Clinical Notes Section Notes 04/09/2024 Encounter for immunization (ICD-10 - Z23) flu vaccine administed 04/09/2024 Acute torn meniscus (ICD-10 - S83.209A) referral to dr queen/ x-ray order faxed to both [facility] patient Reg numbers. patient verbalized understanding of medication and directions for use Plan Of Treatment Medication Medication Name Sig Start Date Stop Date Notes traMADol HCl 50 MG 1 tablet as needed O rally every 8 hrs as needed for 10 days 04/09/2024 Ibuprofen 800 MG TAKE 1 TABLET BY SERGEI TH THREE TIMES DAILY( EVERY 8 HOURS) Treatment Notes Assessment Notes Encounter for immunization flu vaccine a dministed Acute torn meniscus referral to dr queen / x-ray order faxed to both [facility] patient Reg numbers. patient verbalized understanding of medication and directions for use Pending Test Test Name Order Date XR knee RT 3V 04/09/2024 Referrals Referral Date Details 04/09/2024 04/09/2024, acute to rn meniscus please booked patient for a soon appointment Right knee , Bar Dawkins Next Appt Details Provider Name:Dustinbryn Muller ier, 06/24/2025 07:30:00 AM, [address] [place] [address], [address] [place] [address], [phone], Provider Name:Dustin Muller ier, 07/01/2025 02:30:00 PM, [address] [place] [address], [address], [place], [place], [phone], Progress Notes * Brodie KULKARNI ADOB:1970 (53 yo M)Acc No.[id number]:04/09/2024 Progress Notes Patient: Brodie Salgado Provider: Juan García MD :1970 A ge:53 Y S ex:Male Date:04/09/2024 Address:[address], [place], [id number] Subjective: * Chief Complaints: * R ight knee pain x 10 days * HPI: S ymptom(s): patient is a 53 yo male here as emergency for right knee pain. has been hiking and walking for 3 weeks. * ROS: G eneral/Constitutional: Denies C hills. D enies F atigue. D enies F ever. D enies H eadache. E NT: Patient denies d ecreased sense of smell , any loss of taste , sore throat. R espiratory: Denies C ough. D enies S hortness of breath at rest. D gilmer S hortness of breath with exertion. G astrointestinal: Denies D iarrhea. D enies N ausea. M usculoskeletal: Patient denies m uscle aches. P atient complaining of?c/o left knee pain started after walking. P eripheral Vascular: Patient denies r ed and blue toes. * Medical History: * Surgical History: * Hospitalization/Major Diagno stic Procedure: * Medications: T akingAlbuterol Sulfate HFA 108 (90 Base) MCG/ACT Aerosol [...] MOUTH THREE TIMES DAILY( EVERY 8 HOURS) Omeprazole 20 MG Capsule Delayed Release TAKE [...] MOUTH EVERY DAY 30 MINUTES BEFORE BREAKFAST Not-Taking/PRNFluticasone Propionate 50 MCG/ACT Suspension SHAKE LIQUID [...] Verified] Objective: * Vitals: H t: 70, Wt:239, BMI:34.29, BP:158/70, Repeat BP:120/90 weight is down 8 pounds since 01-12-24. * Examination: G eneral Examination: GENERAL APPEARANCE: alert in acute distress from knee.? MUSCULOSKELETAL: abnormal with swellin and tender rt knee. Assessment: * Assessment: 1. A cute torn meniscus - S83.209A (Primary) 2 . E ncounter for immunization - Z23 Plan: * Treatment: Notes: referral to dr queen/ x-ray order faxed to both [facility] patient Reg numbers. patient verbalized understanding of medication and directions for use?&#1 60;? Referral To:Bar Dawkins??Orthopedic Surgery ?Reason:acute torn meniscus please booked patient for a soon appointment Right knee 2.?Encounter for immunization? Notes: flu vaccine administed?? * Immunizations: Fluarix Quadrivalent - 150 : 0.5 mL (Dose No:1) (Route: Intramuscular) given by Valencia Rodgers on Left Deltoid * Procedure Codes: 9 0686 FLU VAC NO PRSV 4 AKSHAT 3 [id number] IMMUNIZATION ADMIN * Preventive Medicine: Immunizations: I nfluenza H ave you had a flu shot since the most recent March 24? Y es. * * Sign off status: Completed true * Provider: Juan García MD Date: 0 04/09/2024 Generated for Jose ma/Rigoberto/Spenceritting on: 07/31/2024 09:55 AM EST History and Physical Notes * HPI (History of Present Illness) Category Sub-Category Detail Notes Category Not es Symptom(s) patient is a 53 yo male here as emergency for right knee pain. has been hiking and walking for 3 weeks Examination Category Sub-Category Detail Notes Category Not es General Examination GENERAL APPEARANCE: alert in acute distress from knee MUSCULOSKELETAL: abnormal with swelli n and tender rt knee Consultation Request Notes Referral Date Referring Provider Referred Provider Not es 04/09/2024 Dustin García Noah acute torn meniscus please booked patient for a soon appointment Right knee
--- OUTSIDE RECORDS SUMMARY | 2024-08-22 05:00 | XMS_ITS ---
Author Organization Dustin García MD Address [address] [place], [place] [id number] Care Team Providers Care Bioinformatics Engineer Name Role Phone Dustin García Primary Care Provider Allergies No Known Allergies REASON FOR VISIT discuss wt meds Medications Medication SIG (Take, Route, Frequency, Duration) Notes Start Date End Date Status Azelastine HCl 0.05 % 1 drop into affect ed eye Ophthalmic Twice a day for 30 days 10/06/2020 Not-Taking Tums 500 MG 1 tablet Orally Once a day for 30 day(s) Not-Taking Fluticasone Propionate 50 MCG/ACT SHAKE LIQUID AND USE 1 SPRAY IN EACH NOSTRIL EVERY DAY for 60 Not-Taking Ibuprofen 800 MG [facility] EVERY 8 HOURS for 30 Active ProAir HFA 108 (90 Base) MCG/ACT 1 puff as needed Inhalation every 4 hrs for 30 days 09/20/2019 Not-Taking PARoxetine HCl 40 MG TAKE 1 TABLET BY [facility] EVERY DAY IN THE MORNING Orally Once a day for 90 days Active Lisinopril-hydroCHLOROthi azide 10-12.5 MG TAKE 1 TABLET BY MOUTH DAILY Orally Once a day for 90 days Active Omeprazole 20 MG TAKE 1 CAPSULE BY [facility] EVERY DAY 30 MINUTES BEFORE BREAKFAST for 90 Active Sildenafil Citrate 50 MG TAKE ONE TABLET BY MOUTH EVERY DAY NEEDED for 30 Active Albuterol Sulfate HFA 108 (90 Base) MCG/ACT 1 puff as needed Inhalation every 4 hrs for 30 days 07/26/2022 Active Vital Signs Blood pressure systolic 130 mm Hg 08/22/19 25 Blood pressure diastolic 72 mm Hg 025 Height 70 in 08/22/2024 Weight 249 lbs 08/22/2024 BMI 35.72 kg/m2 08/22/2024 weight is up 10 pounds since 04-09-24 Encounters Encounter Location Date Provider Diagnosis Dustin García MD [address] [place] [phone] 08/22/2024 Dustin García Unintended weight gain R63.5 ; Essential hypertension I10 and Panic attack F41.0 Assessments Encounter Date Diagnosis (ICD Code) Assessment Notes Treatment Notes Treatment Clinical Notes Section Notes 08/22/2024 Unintended weight gain (ICD-10 - R63.5) discussed the meds and and he doesn't want to stay on meds 08/22/2024 Essential hypertension (ICD-10 - I10) 08/22/2024 Panic attack (ICD-10 - F41.0) Plan Of Treatment Medication Medication Name Sig Start Date Stop Date Notes PARoxetine HCl 40 MG TAKE 1 TABLET BY [facility] EVERY DAY IN THE MORNING Orally Once a day for 90 days Lisinopril-hydroCHLOROthiazi de 10-12.5 MG TAKE 1 TABLET BY MOUTH DAILY Orally Once a day for 90 days Treatment Notes Assessment Notes Unintended weight gain discussed the med s and and he doesn't want to stay on meds Next Appt Details Follow Up: 6 Months, Reason: complete Provider Name:Dustin montague, 06/24/2025 07:30:00 AM, [address] [place] [address], [address], [phone], Provider Name:Dustin montague, 07/01/2025 02:30:00 PM, [address] [place] [address], [place] [address], [place], [place], [phone], Progress Notes * Brodie KULKARNI ADOB:1970 (54 yo M)Acc No.[id number]:08/22/2024 Progress Notes Patient: Denys KEE Brodie Haro Provider: Juan García MD :1970 A ge:54 Y S ex:Male Date:08/22/2024 Address:[address], [place], [id number] Subjective: * Chief Complaints: * D iscuss wt meds * HPI: S ymptom(s): patient is a 54 yo male here for follow up to discuss weight meds. . walking well. had recent knee surgery. * ROS: G eneral/Constitutional: Denies C hills. D enies F atigue. D enies F ever. D enies H eadache. E NT: Patient denies d ecreased sense of smell, any loss of taste, sore throat. D enies S ore throat. [...] puff as needed Inhalation every 4 hrs Sildenafil Citrate 50 MG Tablet TAKE ONE TABLET BY MOUTH EVERY DAY NEEDED PARoxetine HCl 40 MG Tablet TAKE 1 TABLET BY MOUTH EVERY DAY IN THE MORNING Lisinopril-hydroCHLOROthiazide 10-12.5 MG Tablet TAKE 1 TABLET BY MOUTH DAILY Omeprazole 20 MG Capsule Delayed Release TAKE 1 CAPSULE BY MOUTH EVERY DAY 30 MINUTES BEFORE BREAKFAST Ibuprofen 800 MG Tablet TAKE 1 TABLET BY MOUTH THREE TIMES DAILY EVERY 8 HOURS Taking Albuterol Sulfate HFA 108 (90 Base) MCG/ACT Aerosol Solution 1 puff as needed Inhalation every 4 hrs Taking Sildenafil Citrate 50 MG Tablet TAKE ONE TABLET BY MOUTH EVERY DAY NEEDED Taking PARoxetine HCl 40 MG Tablet TAKE 1 TABLET BY MOUTH EVERY DAY IN THE MORNING Taking Lisinopril-hydroCHLOROthiazide 10-12.5 MG Tablet TAKE 1 TABLET BY MOUTH DAILY Taking Omeprazole 20 MG Capsule Delayed Release TAKE 1 CAPSULE BY MOUTH EVERY DAY 30 MINUTES BEFORE BREAKFAST Taking Ibuprofen 800 MG Tablet TAKE 1 TABLET BY MOUTH THREE TIMES DAILY EVERY 8 HOURS Not-Taking/PRNFluticasone Propionate 50 MCG/ACT Suspension SHAKE LIQUID AND USE 1 SPRAY IN EACH NOSTRIL EVERY DAY Azelastine HCl 0.05 % Solution 1 drop into affected eye Ophthalmic Twice a day Elena 500 MG Tablet Chewable 1 tablet Orally Once a day ProAir HFA 108 (90 Base) MCG/ACT Aerosol Solution 1 puff as needed Inhalation every 4 hrs Not-Taking/PRN Fluticasone Propionate 50 MCG/ACT Suspension SHAKE LIQUID AND USE 1 SPRAY IN EACH NOSTRIL EVERY DAY Not-Taking/PRN Azelastine HCl 0.05 % Solution 1 drop into affected eye Ophthalmic Twice a day Not-Taking/PRN Tums 500 MG Tablet Chewable 1 tablet Orally Once a day Not-Taking/PRN ProAir HFA 108 (90 Base) MCG/ACT Aerosol Solution 1 puff as needed Inhalation every 4 hrs DiscontinuedtraMADol HCl 50 MG Tablet 1 tablet as needed Orally every 8 hrs as needed Medication List reviewed and reconciled with the patientDiscontinued traMADol HCl 50 MG Tablet 1 tablet as needed Orally every 8 hrs as needed Medication List reviewed and reconciled with the patient * Allergies: N .K.D.A.yes[Allergies Verified] Objective: * Vitals: H t: 70, Wt: 249, BMI:35.72, BP:130/72, Wt-k.95. weight is up 10 pounds since 04-09-24. * Examination: G eneral Examination: GENERAL APPEARANCE: p leasant, well nourished, well developed, in no acute distress. HEAD: n ormocephalic. SKIN: g ood turgor. HEART: n o murmurs, rubs, gallops, regular rate and rhythm.? LUNGS: n o wheezes, rales, rhonchi, good air movement, clear to auscultation bilaterally. Assessment: * Assessment: 1. U nintended weight gain - R63.5 (Primary) 2 . E ssential hypertension - I10 3 . P anic attack - F41.0 Plan: * Treatment: 2. E ssential hypertension Continue Lisinopril-hydroCHLOROthiazide Tablet, 10-12.5 MG, TAKE 1 TABLET BY MOUTH DAILY, Orally, Once a day, 90 days, 90, Refills 3. 3. P anic attack Continue PARoxetine HCl Tablet, 40 MG, TAKE 1 TABLET BY MOUTH EVERY DAY IN THE MORNING, Orally, Once a day, 90 days, 90, Refills 3. * Procedure Codes: * Follow Up: 6 Months (Reason: complete) * * Sign off status: Completed true * Provider: Juan García MD Date: 0 08/22/2024 Generated for Jose ma/Rigoberto/Spenceritting on: 1 07/31/2024 09:55 AM EST History and Physical Notes * HPI (History of Present Illness) Category Sub-Category Detail Notes Category Not es Symptom(s) patient is a 54 yo male here for follow up to discuss weight meds. . walking well. had recent knee surgery. Examination Category Sub-Category Detail Notes Category Not es General Examination GENERAL APPEARANCE: pleasant , well nourished, well developed, in no acute distress HEAD: normocephalic HEART: no murmurs, rubs, ga llops, regular rate and rhythm LUNGS: no wheezes, rales, r honchi, good air movement, clear to auscultation bilaterally SKIN: good turgor
--- OUTSIDE RECORDS SUMMARY | 2024-09-10 10:45 | XMS_ITS ---
Author Organization [facility] Address [address] [place] [address] Care Team Providers Care Mechanic Chief Name Role Phone Dustin García MD Primary Care Provider Shannon Malhotra Unavailable [phone] Rescheduled Encounters Encounter Location Date Provider Diagnosis [facility] [address] [place] [address] 09/10/2024 Shannon Hancock Plan Of Treatment No Information Progress Notes * Chris KULKARNIOB:1970 ( 55 yo M)Acc No.[id number]:09/10/2024 Progress Note Patient: Brodie MARRERO Provider: Dariel Hancock DPM :1970 A ge:54 Y S ex:Male Date:09/10/2024 Address:[address], [id number] Pcp:Dustin García MD Subjective: * Chief Complaints: * 1 . Rescheduled. * Medical History: Objective: * Vitals: Assessment: Plan: * Treatment: * Images: * The named appointment provid er may or may not be the originator of this progress note, and it is not deemed complete until electronically signed by the appointment provider. Sign off status: Pending * Provider: Dariel Hancock DPM Date: 0 09/10/2024 Generated for Printi ng/Faxing/eTransmitting on: 1 07/31/2024 09:56 AM EST
--- OUTSIDE RECORDS SUMMARY | 2024-09-17 10:45 | XMS_ITS ---
Author Organization [facility] Address [address] [place] [address] Care Team Providers Care Film Casting Operator Name Role Phone Ricky IBARRA, Dustin Primary Care Provider Shannon Malhotra Unavailable [phone] Medications Medication SIG (Take, Route, Frequency, Duration) Notes Start Date End Date Status Ciclopirox Olamine 0.77 % 1 application Externally Twice a day to skin of feet including between the toes; Duration: 30 days Active Motrin Active LamISIL 250 MG 1 tablet Orally Once a day; Duration: 30 days Active Lisinopril 10 MG 1 tablet Orally Once a day Active Encounters Encounter Location Date Provider Diagnosis [address] [address] 09/17/2024 Shannon Hancock Plan Of Treatment No Information Progress Notes * Chris KULKARNIOB:1970 ( 55 yo M)Acc No.[id number]:09/17/2024 Progress Note Patient: Jorge Alberto MARREROro Provider: Dariel Hancock DPM :1970 A ge:54 Y S ex:Male Date:09/17/2024 Address:[address], [id number] Pcp:Dustin García MD Subjective: * Chief Complaints: * * Medical History: * Medications: T aking Motrin , Taking Lisinopril 10 MG Tablet 1 tablet Orally Once a day , Taking LamISIL 250 MG Tablet 1 tablet Orally Once a day , Taking Ciclopirox Olamine 0.77 % Cream 1 application Externally Twice a day to skin of feet including between the toes Objective: * Vitals: Assessment: Plan: * Treatment: * Images: * The named appointment provid er may or may not be the originator of this progress note, and it is not deemed complete until electronically signed by the appointment provider. Sign off status: Pending * Provider: Dariel Hancock DPM Date: 0 09/17/2024 Generated for Jose ma/Rigoberto/Demar on: 1 07/31/2024 09:57 AM EST
--- OUTSIDE RECORDS SUMMARY | 2024-10-04 02:15 | XMS_ITS ---
Author Organization Dustin García MD Address [address] [place], [place] [phone] Care Team Providers Care Cement Truck Driver Name Role Phone Dustin García Primary Care Provider [phone] REASON FOR VISIT FASTING LABS Encounters Encounter Location Date Provider Diagnosis Dustin García MD [address] [place] [phone] 10/04/2024 Dustin García Blood tests for routine general physical examination Z00.00 ; Essential hypertension I10 and Borderline high cholesterol E78.9 Assessments Encounter Date Diagnosis (ICD Code) Assessment Notes Treatment Notes Treatment Clinical Notes Section Notes 10/04/2024 Blood tests for routine general physical examination (ICD-10 - Z00.00) 10/04/2024 Essential hypertension (ICD-10 - I10) 10/04/2024 Borderline high cholesterol (ICD-10 - E78.9) Plan Of Treatment Pending Test Test Name Order Date Complete Blood Count Auto Diff 5 Comprehensive [place]. Panel Fast 5 Lipid Panel 10/04/2024 PSA,Total (Free>4and<10) 10/04/2024 UA ClnCatch+Micro w/rflx Cult 10/04/2024 Next Appt Details Provider Name:Dustin montague, 06/24/2025 07:30:00 AM, [address] [place] [address], [address], [phone], Provider Name:Dustin montague, 07/01/2025 02:30:00 PM, [address] [place] [address], [address] [place], [phone], Progress Notes * Brodie KULKARNI ADOB:1970 (55 yo M)Acc No.[id number]:10/04/2024 Progress Note Patient: Brodie MARRERO Provider: Juan García MD :1970 A ge:54 Y S ex:Male Date:10/04/2024 Address:[address], [place], [id number] Subjective: * Chief Complaints: * 1 . FASTING LABS. * Medical History: Objective: * Vitals: Assessment: * Assessment: 1. B lood tests for routine general physical examination - Z00.00 (Primary) 2 .?Essential hypertension - I10 3 . B orderline high cholesterol - E78.9 Plan: * Treatment: 2. E ssential hypertension L AB: Complete Blood Count Auto Diff L AB: Comprehensive [place]. Panel Fast L AB: Lipid Panel L AB: PSA,Total (Free>4and<10) L AB: UA ClnCatch+Micro w/rflx Cult 3. B orderline high cholesterol L AB: Complete Blood Count Auto Diff L AB: Comprehensive [place]. Panel Fast L AB: Lipid Panel L AB: PSA,Total (Free>4and<10) L AB: UA ClnCatch+Micro w/rflx Cult * Procedure Codes: 3 6415 VENIPUNCT, ROUTINE* * * The named appointment provid er may or may not be the originator of this progress note, and it is not deemed complete until electronically signed by the appointment provider. Sign off status: Pending * Provider: Juan García MD Date: 0 10/04/2024 Generated for Jose ma/Rigoberto/Diegosmitting on: 1 07/31/2024 09:56 AM EST
--- OUTSIDE RECORDS SUMMARY | 2024-10-10 03:00 | XMS_ITS ---
Author Organization Dustin García MD Address [address] [place] [phone] Care Team Providers Care Stars Specialist Name Role Phone Dustin García Primary Care Provider Allergies No Known Allergies REASON FOR VISIT ANNUAL EXAM Social History Tobacco Use: Social History Observation Description Date Details (start date - stop date) Never Smoker NA - NA Tobacco Use/Smoking Question Answer Notes Patient is a nonsmoker Additional Findings: Tobacco Non-User Cu rrent non-smoker, currently using no form of tobacco Alcohol Screen Question Answer Notes Did you have a drink containing alcohol in the p ast year? No Points 0 Interpretation Negative Encounters Encounter Location Date Provider Diagnosis Dustin García MD [address] [place] [phone] 10/10/2024 Dustin García Annual physical exam Z00.00 Assessments Encounter Date Diagnosis (ICD Code) Assessment Notes Treatment Notes Treatment Clinical Notes Section Notes 10/10/2024 Annual physical exam (ICD-10 - Z00.00) Plan Of Treatment Next Appt Details Provider Name:Dustin montague, 06/24/2025 07:30:00 AM, [address] [place] [address], [address] [facility], [place], [place], [phone], Provider Name:Dustin montague, 07/01/2025 02:30:00 PM, [address] [place] [address], [address], [phone], Progress Notes * Brodie KULKARNI ADOB:1970 (55 yo M)Acc No.[id number]:10/10/2024 Progress Notes Patient: Brodie MARRERO Provider: Juan García MD :1970 A ge:54 Y S ex:Male Date:10/10/2024 Address:[address], [place], [id number] Subjective: * Chief Complaints: * 1 . ANNUAL EXAM. * HPI: D epression Screening: PHQ-9 L ittle interest or pleasure in doing things N ot at all, F eeling down, depressed, or hopeless N ot at all, T rouble falling or staying asleep, or sleeping too much N ot at all, F eeling tired or having little energy N ot at all, P oor appetite or overeating N ot at all, F eeling bad about yourself or that you are a failure, or have let yourself or your family down N ot at all, T rouble concentrating on things, such as reading the newspaper or watching television N ot at all, M oving or speaking so slowly that other people could have noticed; or the opposite, being so fidgety or restless that you have been moving around a lot more than usual N ot at all, T houghts that you would be better off or of hurting yourself in some way N ot at all, T otal Score 0 . I nterpretation and Intervention D epression Screening Findings N egative, F ollow-Up for Depression : review of PHQ-9 found negative result, no follow-up needed. C ommunication Needs: Communication Needs D oes the patient have a hearing impairment N o, D oes the patient have a vision impairment? Y es, I f yes, what is the vision impairment? G lasses, D oes the patient have a cognition impairment? N o. F all Risk: History H ave you had any falls with injury in the past year? N o, H ave you had two or more falls in the past year? N o. S UGO Questions: SDOH Questions I n the past year have you been worried about losing housing? N o, I n the past year have you or any family members you live with been unable to get any of the following when it was really needed? Check all that apply: N one. S ymptom(s): patient is a 54 yo male here for annual visit with review of recent labs and follow up of chronic issues. * Medical History: C olonoscopy done 08/10/[address] Novak (next pending biopsy). * Family History: F ather: alive 84 yrs, type II diabetes, hypertension. M other: alive 82 yrs, type II diabetes, hypertension. 2 brother(s) , 2 sister(s) - healthy. 3 son(s) , 1 daughter(s) - healthy. .? No pertinent family medical history, Denies mental health/substance abuse family history. * Social History: T obacco Use: T obacco Use/Smoking P atkathrin is a n onsmoker, A dditional Findings: Tobacco Non-User C urrent non-smoker, currently using no form of tobacco. D rugs/Alcohol: A lcohol Screen D id you have a drink containing alcohol in the past year? N o, P oints 0 , I nterpretation N egative. M iscellaneous: C affeine: yes, frequency:, 1-2 cups per day. Children: yes. Community involvements: yes. Exercise: no. Home smoke detector use: yes. Housing: owning. Living with: spouse, family. Occupation: weeks/months/years, works full-time. Pets: none. Travel outside of the [place]: no. * Allergies: N .K.D.A. Objective: * Vitals: * P ast Orders: L ab:Comprehensive [place]. Panel Fast (Order Date - 10/04/2024) (Collection Date & Time - 10/04/2024 07:15 AM) Value Reference Range Sodium 141 135-145 - mmol/L Bilirubin Total 0.4 0.0-1.0 - mg/dL Aspartate Amino Transferase 40 H 5-37 - U/L Alanine Aminotransferase 44 H 0-40 - U/L Total Protein 8.3 H 6.5-8.0 - g/dL Albumin Level 4.5 3.5-5.0 - g/dL Alkaline Phosphatase 96 39-117 - U/L Potassium 4.6 3.3-5.1 - mmol/L Chloride 105 96-108 - mmol/L Carbon Dioxide 28 22-29 - mmol/L Anion Gap 13 12-20 - Blood Urea Nitrogen 20 H 9-16 - mg/dL Creatinine 0.92 0.5-1.4 - mg/dL Estimated Glomerular Filt Rate > 60 - Glucose Fasting 110 H 60-99 - mg/dL Calcium 9.8 8.4-10.2 - mg/dL L ab:Lipid Panel (Order Date - 10/04/2024) (Collection Date & Time - 10/04/2024 07:15 AM) Value Reference Range Triglycerides 92 <150 - mg/dL Cholesterol 213 H <200 - mg/dL LDL Cholesterol Calculated 142 H <100 - mg/dL HDL Cholesterol 53 >40 - mg/dL L ab:PSA,Total (Free>4and<10) (Order Date - 10/04/2024) (Collection Date & Time - 10/04/2024 07:15 AM) Value Reference Range PSA,Total (Free>4and<10) 1.97 0.00-4.00 - ng/ mL Assessment: * Assessment: 1. A nnual physical exam - Z00.00 (Primary) Plan: * Treatment: * * The named appointment provid er may or may not be the originator of this progress note, and it is not deemed complete until electronically signed by the appointment provider. Sign off status: Pending * Provider: Juan García MD Date: 0 10/10/2024 Generated for Jose ma/Rigoberto/Demar on: 1 07/31/2024 09:56 AM EST History and Physical Notes * HPI (History of Present Illness) Category Sub-Category Detail Notes Category Not es Symptom(s) patient is a 54 yo male here for annual visit with review of recent labs and follow up of chronic issues. Depression Screening PHQ-9 Little inte rest or pleasure in doing things: Not at all Feeling down, depressed, or hopeless: No t at all Trouble falling or staying asleep, or sl eeping too much: Not at all Feeling tired or having little energy: N ot at all Poor appetite or overeating: Not at all Feeling bad about yourself o r that you are a failure, or have let yourself or your family down: Not at all Trouble concentrating on thi ngs, such as reading the newspaper or watching television: Not at all Moving or speaking so slowly that other people could have noticed; or the opposite, being so fidgety or restless that you have been moving around a lot more than usual: Not at all Thoughts that you would be b lizzy off or of hurting yourself in some way: Not at all Total Score: 0 Interpretation and Intervention Depression Richard vivas Findings: Negative Follow-Up for Depression: : review of PH Q-9 found negative result, no follow-up needed SDOH Questions SDOH Questions In the past year have you been worried about losing housing?: No In the past year have you or any family members you live with been unable to get any of the following when it was really needed? Check all that apply:: None Fall Risk History Have you had any falls with injury i n the past year?: No Have you had two or more falls in the st year?: No Communication Needs Communication Needs Does the patient have a hearing impairment: No Does the patient have a vision impairmen t?: Yes If yes, what is the vision impairment?: Glasses Does the patient have a cognition impair ment?: No
--- OUTSIDE RECORDS SUMMARY | 2024-12-10 04:15 | XMS_ITS ---
Author Organization Dustin García MD Address [address] [place], [place] [phone] Care Team Providers Care Belt Loop Cutter Name Role Phone Dustin García Primary Care Provider [phone] Allergies No Known Allergies REASON FOR VISIT COUGHING 2 WEEKS. COVID NEG 3 DAYS AGO Video [phone], c/o fatigue , nonproductive cough headache earache, sore throat, congestion x 22 days negative for Covid this AM Medications Medication SIG (Take, Route, Frequency, Duration) Notes Start Date End Date Status Tums 500 MG 1 tablet Orally Once a day for 30 day(s) Not-Taking ProAir HFA 108 (90 Base) MCG/ACT 1 puff as needed Inhalation every 4 hrs for 30 days 09/20/2019 Not-Taking PARoxetine HCl 40 MG TAKE 1 TABLET BY [facility] EVERY DAY IN THE MORNING for 30 Active Fluticasone Propionate 50 MCG/ACT SHAKE LIQUID AND USE 1 SPRAY IN EACH NOSTRIL EVERY DAY for 60 Not-Taking Azelastine HCl 0.05 % 1 drop into affect ed eye Ophthalmic Twice a day for 30 days 10/06/2020 Not-Taking Albuterol Sulfate HFA 108 (90 Base) MCG/ACT 1 puff as needed Inhalation every 4 hrs for 30 days 07/26/2022 Active Ibuprofen 800 MG TAKE 1 TABLET BY SERGEI THREE TIMES DAILY EVERY 8 HOURS for 30 Active Lisinopril-hydroCHLOROthi azide 10-12.5 MG TAKE 1 TABLET BY MOUTH DAILY Orally Once a day for 90 days Active Sildenafil Citrate 50 MG TAKE ONE TABLET BY MOUTH EVERY DAY NEEDED for 30 Active Omeprazole 20 MG TAKE 1 CAPSULE BY [facility] EVERY DAY 30 MINUTES BEFORE BREAKFAST for 90 Active predniSONE 10 MG 1 tablet with food o r milk Orally 4 tabs for 3 days,3tabs for 3 days, 2 tabs for 3 days, and 1 tab for 3 days for 14 days 12/10/2024 Active Albuterol Sulfate HFA 108 (90 Base) MCG/ACT 1 puff as needed Inhalation every 4 hrs for 30 days 12/10/2024 Active Zithromax Z-Chris 250 MG 2 tablet on the f irst day, then 1 tablet daily for 4 days Orally Once a day for 5 day(s) 12/10/2024 Active Vital Signs Height 70 in 12/10/2024 Weight 45 lbs 12/10/2024 BMI 6.46 kg/m2 12/10/2024 weight at home 245 BP not ta stanley no temp Encounters Encounter Location Date Provider Diagnosis Dustin García MD [address] [place] [address] [place] [phone] 12/10/2024 Dustin García Bronchitis J40 Assessments Encounter Date Diagnosis (ICD Code) Assessment Notes Treatment Notes Treatment Clinical Notes Section Notes 12/10/2024 Bronchitis (ICD-10 - J40) patient verbalized understanding of medications and directions for use Plan Of Treatment Medication Medication Name Sig Start Date Stop Date Notes predniSONE 10 MG 1 tablet with food o r milk Orally 4 tabs for 3 days,3tabs for 3 days, 2 tabs for 3 days, and 1 tab for 3 days for 14 days 12/10/2024 Albuterol Sulfate HFA 108 (9 0 Base) MCG/ACT 1 puff as needed Inhalation every 4 hrs for 30 days 12/10/2024 Zithromax Z-Chris 250 MG 2 tablet on the f irst day, then 1 tablet daily for 4 days Orally Once a day for 5 day(s) 12/10/2024 Treatment Notes Assessment Notes Bronchitis patient verbalized u nderstanding of medications and directions for use Next Appt Details Provider Name:Dustin montague, 06/24/2025 07:30:00 AM, [address] [place] [address], [place] [address], [place], [place], [phone], Provider Name:Dustin montague, 07/01/2025 02:30:00 PM, [address], [address], [place], [place], [phone], Progress Notes * Brodie KULKARNI ADOB:1970 (54 yo M)Acc No.[id number]:12/10/2024 Patient: Brodie MARRERO Provider: Juan García MD :1970 A ge:54 Y S ex:Male Date:12/10/2024 Address:[address], [place], [id number] Subjective: * Chief Complaints: * C OUGHING 2 WEEKS. COVID NEG 3 DAYS AGO Video [phone]/o fatigue , nonproductive cough headache earache, sore throat, congestion x 22 days negative for Covid this AM * HPI: S ymptom(s): Telehealth L ocation of provider rendering services: [address], [address], L ocation of patient: a t address listed in demographics for today's visit, P atient identification confirmed using: TRINA Rogel ame, T elehealth method: V ideo conference where patient is visible to the provider of care, C onsent: P atient verbally consented to treatment, Patient verbally consented to billing insurance company, Patient informed of any privacy concerns related to method of visit, T otal time spend talking with patient (minutes) 2 1. patient is a 54 yo male video telehealth , here as emergency.coughing for 22 days.fever at first. is wheezing. also with headache, sore throat and congesion, tested negative for covid, used inhaler in past. * ROS: G eneral/Constitutional: Denies C hills. A dmits F atigue. D enies F ever. A dmits H eadache. E NT: Admits S ore throat. R espiratory: Admits C ough. D enies S hortness of breath at rest. D enies S hortness of breath with exertion. D enies S putum production. D enies W heezing. G astrointestinal: Denies D iarrhea. D enies N ausea. * Medical History: * Surgical History: * Hospitalization/Major Diagno stic Procedure: * Medications: T akingAlbuterol Sulfate HFA 108 (90 Base) MCG/ACT Aerosol Solution 1 puff as needed Inhalation every 4 hrs Ibuprofen 800 MG Tablet TAKE 1 TABLET BY MOUTH THREE TIMES DAILY EVERY 8 HOURS Lisinopril-hydroCHLOROthiazide 10-12.5 MG Tablet TAKE 1 TABLET BY MOUTH DAILY Orally Once a day Sildenafil Citrate 50 MG Tablet TAKE ONE TABLET BY MOUTH EVERY DAY NEEDED Omeprazole 20 MG Capsule Delayed Release TAKE 1 CAPSULE BY MOUTH EVERY DAY 30 MINUTES BEFORE BREAKFAST PARoxetine HCl 40 MG Tablet TAKE 1 TABLET BY MOUTH EVERY DAY IN THE MORNING Taking Albuterol Sulfate HFA 108 (90 Base) MCG/ACT Aerosol Solution 1 puff as needed Inhalation every 4 hrs Taking Ibuprofen 800 MG Tablet TAKE 1 TABLET BY MOUTH THREE TIMES DAILY EVERY 8 HOURS Taking Lisinopril-hydroCHLOROthiazide 10-12.5 MG Tablet TAKE 1 TABLET BY MOUTH DAILY Orally Once a day Taking Sildenafil Citrate 50 MG Tablet TAKE ONE TABLET BY MOUTH EVERY DAY NEEDED Taking Omeprazole 20 MG Capsule Delayed Release TAKE 1 CAPSULE BY MOUTH EVERY DAY 30 MINUTES BEFORE BREAKFAST Taking PARoxetine HCl 40 MG Tablet TAKE 1 TABLET BY MOUTH EVERY DAY IN THE MORNING Not-Taking/PRNFluticasone Propionate 50 MCG/ACT Suspension SHAKE LIQUID AND USE 1 SPRAY IN EACH NOSTRIL EVERY DAY Azelastine HCl 0.05 % Solution 1 drop into affected eye Ophthalmic Twice a day Tums 500 MG Tablet Chewable 1 tablet Orally Once a day ProAir HFA 108 (90 Base) MCG/ACT Aerosol Solution 1 puff as needed Inhalation every 4 hrs Medication List reviewed and reconciled with the patientNot-Taking/PRN Fluticasone Propionate 50 MCG/ACT Suspension SHAKE LIQUID AND USE 1 SPRAY IN EACH NOSTRIL EVERY DAY Not-Taking/PRN Azelastine HCl 0.05 % Solution 1 drop into affected eye Ophthalmic Twice a day Not-Taking/PRN Tums 500 MG Tablet Chewable 1 tablet Orally Once a day Not- Taking/PRN ProAir HFA 108 (90 Base) MCG/ACT Aerosol Solution 1 puff as needed Inhalation every 4 hrs Medication List reviewed and reconciled with the patient * Allergies: N .K.D.A.yes[Allergies Verified] Objective: * Vitals: H t: 70, Wt: 45, BMI:6.46, Wt-k.41. weight at home 245 BP not taken no temp. * Examination: G eneral Examination: GENERAL APPEARANCE: a lert, well hydrated, in no distress.? Assessment: * Assessment: 1. B mariah - J40 (Primary) Plan: * Treatment: * Procedure Codes: * * Sign off status: Completed true * Provider: Juan García MD Date: 0 12/10/2024 Generated for Jose ma/Rigoberto/Demar on: 07/31/2024 09:56 AM EST History and Physical Notes * HPI (History of Present Illness) Category Sub-Category Detail Notes Category Not es Symptom(s) Telehealth Location of [facility] rendering services:: [address], [address] patient is a 54 yo male video telehealth , here as emergency.coughing for 22 days.fever at first. is wheezing. also with headache, sore throat and congesion, tested negative for covid, used inhaler in past Location of patient:: at address listed in demographics for today's visit Patient identification confirmed using:: Name, Telehealth method:: Video co nference where patient is visible to the provider of care Consent:: Patient verbally c onsented to treatment, Patient verbally consented to billing insurance company, Patient informed of any privacy concerns related to method of visit Total time spend talking with patient (m inutes): 21 Examination Category Sub-Category Detail Notes Category Not es General Examination GENERAL APPEARANCE: alert, w ell hydrated, in no distress
--- OUTSIDE RECORDS SUMMARY | 2024-12-26 02:45 | XMS_ITS ---
Author Organization Dustin García MD Address [address] [place], [place] [phone] Care Team Providers Care Compound Mixer Name Role Phone Dustin García Primary Care Provider Allergies No Known Allergies REASON FOR VISIT STILL COUGHING , HAS TESTED NEG FOR COVID PREVIOUSLY Medications Medication SIG (Take, Route, Frequency, Duration) Notes Start Date End Date Status Fluticasone Propionate 50 MCG/ACT SHAKE LIQUID AND USE 1 SPRAY IN EACH NOSTRIL EVERY DAY for 60 Not-Taking Azelastine HCl 0.05 % 1 drop into affect ed eye Ophthalmic Twice a day for 30 days 10/06/2020 Not-Taking predniSONE 10 MG 1 tablet with food o r milk Orally 4 tabs for 3 days,3tabs for 3 days, 2 tabs for 3 days, and 1 tab for 3 days for 14 days 12/26/2024 Active Tums 500 MG 1 tablet Orally Once a day for 30 day(s) Not-Taking ProAir HFA 108 (90 Base) MCG/ACT 1 puff as needed Inhalation every 4 hrs for 30 days 09/20/2019 Not-Taking PARoxetine HCl 40 MG TAKE 1 TABLET BY MO [facility] EVERY DAY IN THE MORNING for 30 Active Albuterol Sulfate HFA 108 (90 Base) MCG/ACT 1 puff as needed Inhalation every 4 hrs for 30 days 12/10/2024 Active Omeprazole 20 MG TAKE 1 CAPSULE BY MO [facility] EVERY DAY 30 MINUTES BEFORE BREAKFAST for 90 Active Lisinopril-hydroCHLOROthi azide 10-12.5 MG TAKE 1 TABLET BY MOUTH DAILY Orally Once a day for 90 days Active Sildenafil Citrate 50 MG TAKE ONE TABLET BY MOUTH EVERY DAY NEEDED for 30 Active Ibuprofen 800 MG TAKE 1 TABLET BY SERGEI TH THREE TIMES DAILY EVERY 8 HOURS for 30 Active Problems Problem Type SNOMED Code ICD Code Onset Dates Problem Status W/U Status Risk Notes Problem Asthma (624162640) Asthma (J45.909) Active confirmed Vital Signs Blood pressure systolic 120 mm Hg 12/27/19 25 Blood pressure diastolic 70 mm Hg 025 Height 70 in 12/26/2024 Weight 247 lbs 12/26/2024 BMI 35.44 kg/m2 12/26/2024 weight is p 2 pounds since Encounters Encounter Location Date Provider Diagnosis Dustin García MD [address] [place], [place] [phone] 12/26/2024 Dustin García Asthma J45.909 Assessments Encounter Date Diagnosis (ICD Code) Assessment Notes Treatment Notes Treatment Clinical Notes Section Notes 12/26/2024 Asthma (ICD-10 - J45.909) patient verbalized understanding of medication and directions for use, pending diagnostic testing, XRAY ORDER AND LAB ORDER PRINTED AND GIVEN TO PATIENT, Plan Of Treatment Medication Medication Name Sig Start Date Stop Date Notes predniSONE 10 MG 1 tablet with food o r milk Orally 4 tabs for 3 days,3tabs for 3 days, 2 tabs for 3 days, and 1 tab for 3 days for 14 days 12/26/2024 Treatment Notes Assessment Notes Asthma patient verbalized u nderstanding of medication and directions for use, pending diagnostic testing, XRAY ORDER AND LAB ORDER PRINTED AND GIVEN TO PATIENT, Pending Test Test Name Order Date XR CHEST 2 VIEW PA & LAT 12/26/2024 SARS-CoV2/FLU/RSV 12/26/2024 Next Appt Details Provider Name:Dustin montague, 06/24/2025 07:30:00 AM, [address], [address], [place], [place], [phone], Provider Name:Dustin montague, 07/01/2025 02:30:00 PM, [address], [address], [place], [place], [phone], Progress Notes * Brodie KULKARNI ADOB:1970 (54 yo M)Acc No.[id number]:12/26/2024 Progress Notes Patient: Brodie MARRERO Provider: Juan García MD :1970 A ge:54 Y S ex:Male Date:12/26/2024 Address:[address], [place], [id number] Subjective: * Chief Complaints: * S TILL COUGHING , HAS TESTED NEG FOR COVID PREVIOUSLY * HPI: S ymptom(s): patient is a 54 yo male here with continued complaint of cough after testing negative for covid/ has been coughing over one month. little wheeing. yesterday had a sore throat. * ROS: G eneral/Constitutional: Denies C hills. D enies F atigue. D enies F ever. D enies H eadache. E NT: Admits S ore throat, f rom coughing. R espiratory: Admits C ough. D enies S hortness of breath at rest. D enies S hortness of breath with exertion. D enies S putum production. D enies W heezing. G astrointestinal: Denies D iarrhea. D enies N ausea. * Medical History: * Surgical History: * Hospitalization/Major Diagno stic Procedure: * Medications: T akingIbuprofen 800 MG Tablet TAKE 1 TABLET BY [...] BY MOUTH EVERY DAY IN THE MORNING Albuterol Sulfate HFA 108 (90 Base) MCG/ACT [...] puff as needed Inhalation every 4 hrs Not-Taking/PRNFluticasone Propionate 50 MCG/ACT Suspension SHAKE LIQUID [...] puff as needed Inhalation every 4 hrs DiscontinuedZithromax Z-Chris 250 MG Tablet 2 tablet on the first day, then 1 tablet daily for 4 days Orally Once a day predniSONE 10 MG Tablet 1 tablet with food or milk Orally 4 tabs for 3 days,3tabs for 3 days, 2 tabs for 3 days, and 1 tab for 3 days Medication List reviewed and reconciled with the patientDiscontinued Zithromax Z-Chris 250 MG Tablet 2 tablet on the first day, then 1 tablet daily for 4 days Orally Once a day Discontinued predniSONE 10 MG Tablet 1 tablet with food or milk Orally 4 tabs for 3 days,3tabs for 3 days, 2 tabs for 3 days, and 1 tab for 3 days Medication List reviewed and reconciled with the patient * Allergies: N .K.D.A.yes[Allergies Verified] Objective: * Vitals: H t: 70, Wt: 247, BMI:35.44, BP:120/70, Wt-k.04. weight is p 2 pounds since 12-10-24. * Examination: G eneral Examination: GENERAL APPEARANCE: a lert, well hydrated, in no distress with wheezing sounding cough. HEAD: n ormocephalic. THROAT: n o erythema. SKIN: g ood turgor. HEART: n o murmurs, rubs, gallops, regular rate and rhythm.? LUNGS: n o wheezes, rales, rhonchi, good air movement, clear to auscultation bilaterally. Assessment: * Assessment: 1. [facility] J45.909 (Primary) Plan: * Treatment: * Procedure Codes: * * Sign off status: Completed true * Provider: Juan García MD Date: 0 12/26/2024 Generated for Jose ma/Rigoberto/eTransmitting on: 07/31/2024 09:56 AM EST History and Physical Notes * HPI (History of Present Illness) Category Sub-Category Detail Notes Category Not es Symptom(s) patient is a 54 yo male here with continued complaint of cough after testing negative for covid/ has been coughing over one month. little wheeing. yesterday had a sore throat Examination Category Sub-Category Detail Notes Category Not es General Examination GENERAL APPEARANCE: alert, w ell hydrated, in no distress with wheezing sounding cough HEAD: normocephalic THROAT: no erythema HEART: no murmurs, rubs, ga llops, regular rate and rhythm LUNGS: no wheezes, rales, r honchi, good air movement, clear to auscultation bilaterally SKIN: good turgor
--- OUTSIDE RECORDS SUMMARY | 2025-01-16 07:35 | XMS_ITS ---
Author Organization Dustin García MD Address [address] [place] [phone] Care Team Providers Care Cadmium Plater Name Role Phone Dustin García Primary Care Provider REASON FOR VISIT PE needed Encounters Encounter Location Date Provider Diagnosis Dustin García MD [address] [facility] [address] [place] [phone] 01/16/2025 Dustin García Plan Of Treatment Next Appt Details Provider Name:Dustin Muller ier, 06/24/2025 07:30:00 AM, [address] [place] [address], Suite [facility], [place], [place], [phone], Provider Name:Dustin Muller ier, 07/01/2025 02:30:00 PM, [address] [place] [address], [address], [phone], Progress Notes * Brodie KULKARNI ADOB:1970 (54 yo M)Acc No.[id number]:01/16/2025 Patient: Brodie MARRERO :1970 A ge:54 Y S ex:Male Address:[address] [place] [address] * true * Date: Generated for Printi ng/Faxing/eTransmitting on: 07/31/2024 09:56 AM EST
--- NOTE | ~2025-05-31 | MR_ITS ---
CLINICAL HISTORY: RIGHT LUMBAR PAIN MR lumbar spine without gadolinium Comparison: CR/SR - XR LUMBAR SPINE 2-3 VIEWS - 05/01/25 11:39 EDT Findings: No scoliosis or spondylolisthesis. Straightening of normal lumbar lordosis. No acute fracture or pathologic bone lesion. Cauda equina and conus medullaris within normal limits. Moderate multilevel spondylosis with degenerative disc desiccation, disc height loss, ligamentum flavum thickening, and facet arthropathy, most notably at L3-L4, and L4-L5 levels with moderate spinal canal narrowing. Moderate right neural foraminal narrowings at these levels causing abutment of the exiting right L3, and L4 nerve roots no significant left neural foraminal narrowing. Paraspinous musculature intact. IMPRESSION: No acute findings. Moderate multilevel spondylosis, most notably at L3-L4, and L4-L5 levels with prominent circumferential disc bulges causing moderate spinal canal narrowing as well as moderate right neural foraminal narrowings causing abutment of the exiting right L3 and L4 nerve roots. This document has been electronically signed by: Kimberly Cruz MD on 06/02/2025 22:54:06
--- OUTSIDE RECORDS SUMMARY | 2025-05-31 09:56 | XMS_ITS | Clinical Summary ---
Author Organization [facility] Address [address] [place] [address] Phone Care Team Providers Care Automotive Internet Sales Consultant Name Role Phone Pcp, Unknown Primary Care Provider Unavailabl e Allergies No known active allergies Medications lisinopril-hydr oCHLOROthiazide (PRINZIDE,ZESTO RETIC) 10-12.5 mg per tablet Take 1 tablet by mouth every morning. 4 Active omeprazole (PRILOSEC) 20 MG capsule take 1 capsule by mouth every day 30 minutes before breakfast 4 Active Active Problems No known active problems Social History Tobacco Use Types Packs/Day Years Used Date Smoking Tobacco: Never Assessed Education Answer Date Recorded Are you interested in more education? Not on kyara e 10/20/2023 Are you concerned about learning? Not on file 10/20/2023 No 10/20/2023 No 10/20/2023 Digital Access Answer Date Recorded No 10/20/2023 No 10/20/2023 Reliable internet access at home? Not on file 10/20/2023 Device with a working camera? Not on file Sex and Gender Information Value Date Recorded Sex Assigned at Not on file Legal Sex Male 12:30 PM EDT Gender Identity Not on file Sexual Orientation Not on file Last Filed Vital Signs Vital Sign Reading Time Taken Comments Blood Pressure 150/84 11/16/2023 11:32 AM EDT Pulse 84 11/16/2023 11:32 AM EDT Temperature - - Respiratory Rate 16 11/16/2023 11:32 AM EDT Oxygen Saturation 98% 11/16/2023 11:32 AM EDT Inhaled Oxygen Concentration - - Weight 108.9 kg (240 lb) 11/16/2023 11:32 AM EDT Height 177.8 cm (5' 10 ) 11/16/2023 11:32 AM EDT Body Mass Index 34.44 11/16/2023 11:32 AM EDT Plan of Treatment Health Maintenance Due Date Last Done Comments CREATININE LEVEL 1970 LIPID PANEL 1970 POTASSIUM LEVEL 1970 DEPRESSION SCREENING 1981 SMOKING Hx and SMOKELESS TOBACCO SCREENING 1982 HEPATITIS C SCREENING 1987 HIV ONE-TIME SCREENING (18-65 YEARS) 1987 SCREENING FOR DIABETES 2004 COLOGUARD 2014 COLONOSCOPY 2014 COLORECTAL CANCER SCREENING 2014 FIT TEST 2014 FOBT 2014 SIGMOIDOSCOPY 2014 VIRTUAL COLONOSCOPY 2014 PNEUMOCOCCAL VACCINES (50+ years) (1 of 1 - PCV) 2019 ZOSTER VACCINES (2 of 2) 09/28/2023 08/03/2023 INFLUENZA VACCINE (#1) 2025 , 05/10/2022, 06/01/2020, Additional history exists COVID-19 VACCINE (2024- season) 2025 08/03/2023, 10/07/2021, 12/30/2020, Additional history exists Adult Td,Tdap Booster 07/07/2027 07/07/2017 RSV VACCINE (1 - 1-dose 75+ series) 2044 HEPATITIS A VACCINES Aged Out No long er eligible based on patient's age to complete this topic HIB VACCINES Aged Out No longer eligi ble based on patient's age to complete this topic MENINGOCOCCAL VACCINES (ACWY) Aged Out No longer eligible based on patient's age to complete this topic MENINGOCOCCAL VACCINES (B) Aged Out N o longer eligible based on patient's age to complete this topic Medical Devices Not on file Insurance [facility] H[facility] [place] [facility] [place] [address] [place] [address] HMO [facility] [place] [address] [place] [address] HMO Care Teams Automotive Internet Sales Consultant Relationship Specialty Start Date End Date Pcp, Unknown PCP - General 10/20/23 Additional Source Comments The information contained in this document represents components of the legal health record. It is not the complete legal health record.[facility]
--- OUTSIDE RECORDS SUMMARY | 2025-05-31 09:57 | XMS_ITS | Patient Health Record ---
Author Organization [facility] Address [address] [place] [address] Care Team Providers Care Racking Machine Operator Name Role Phone Dustin García MD Primary Care Provider Casper Mcwilliams Unavailable [phone] Reason For Referral No Information Medications Medication [...] Problem Screening for malignant neoplasm of colon (798402188) Encounter for screening for malignant neoplasm of colon (Z12.11) Active confirmed Problem Preprocedural examination (015427054976287) Preprocedural examination (Z01.818) Active confirmed Plan Of Treatment Pending Test Test Name Order Date Pathology 08/10/2020 Future Test Test Name Order Date COLONOSCOPY 07/07/2020 Insurance Providers Payer Name Payer Address Payer Phone Subscriber Number Group Number Insured Name Patient Relationship to Insured Coverage Start Date Coverage End Date [facility] [address] [facility] [phone] [id number] SOFIA DEE Self - patient is the insured Medical (General) History Medical History History ICD Code Hypertension Denies [place],DM,CVA,Lung disease,renal dise ase Kidney stones Surgical History Surgery Date(Month/Year)
--- OUTSIDE RECORDS SUMMARY | 2025-05-31 09:57 | XMS_ITS | Patient Health Record ---
Author Organization [facility] Address [address] [place] [address] Care Team Providers Care Medical Records Manager Name Role Phone Dustin García MD Primary Care Provider Shannon Malhotra Unavailable [phone] Allergies No Known Allergies Reason For Referral [...] Points 0 Interpretation Negative Vital Signs Height [id number] in 06/26/2024 Weight 240 lbs 06/26/2024 BMI 34.43 kg/m2 06/26/2024 Encounters Encounter Location Date Provider Diagnosis [facility] [address] [place] [address] 06/26/2024 Shannon [place] Pain in right toe(s) M79.674 ; Onychomycosis B35.1 ; Pain in left toe(s) M79.675 and Tinea pedis of both feet B35.3 [facility] [address] [place] [address] 07/08/2024 Shannon Hancock [facility] [address] [place] [address] 09/17/2024 Shannon Hancock Assessments Encounter Date Diagnosis [...] Insured Coverage Start Date Coverage End Date [facility] [address] [place] [id number] Brodie Kulkarni Self - patient is the insured Medical (General) History Medical History History ICD Code High Blood Pressure Surgical History Surgery Date(Month/Year) back surgery 2021 knee surgery 2022
--- OUTSIDE RECORDS SUMMARY | 2025-05-31 09:57 | XMS_ITS | Patient Health Record ---
Author Organization Dustin García MD Address [address] [place], [place] [id number] Care Team Providers Care Tax Examining Technician Name Role Phone Dustin García Primary Care Provider Allergies No Known Allergies Results Component Value Reference Range Notes MR knee RT wo con Reviewed date:07/06/2024 02:43:16 PM Interpretation: Performing Lab: Notes/Report: [address] [address] Magnetic Resonance Report Signed Patient: Brodie Lin MR#: [id number] : 1970 Acct:[id number] Age/Sex: 54 / M ADM Date: 06/08/24 Loc: HO.MRI Attending Dr: Kory Mcgrath MD Ordering Physician: Kory Mcgrath MD Date of Service: 06/08/24 Procedure(s): MR knee RT wo con Accession Number(s): [id number] cc: Dustin García MD; Kory Mcgrath MD EXAMINATION: MR KNEE WITHOUT CONTRAST, RIGHT [...] by: Kleber Lazaro MD 06/21/2024 04:23 PM [facility] [place]ict[place] By: Kleber Lazaro MD Signed By: <Electronically signed by Kleber Lazaro MD in OV> 06/21/24 1623 DD/ 33 TD/TT: 06/08/241943 Diesel Maintenance Electrician: [place] [address] Magnetic Resonance Report Signed Patient: Brodie Lin MR#: [id number] : 1970 Acct:[id number] Age/Sex: 54 / M ADM Date: 06/08/24 Loc: HO.MRI Attending Dr: Kory Mcgrath MD Ordering Physician: Kory Mcgrath MD Date of Service: 06/08/24 Procedure(s): MR kne e RT wo con Accession Number(s): [id number] cc: Dustin García MD; Kory Mcgrath MD EXAMINATION: MR KNEE WITHOUT CONTRAST, RIGHT [...] by: Kleber Lazaro MD 06/21/2024 04:23 PM [facility] [place]ict[place] By: Kleber Lazaro MD Signed By: <Electronically signed by Kleber Lazaro MD in OV> 06/21/24 1623 DD/ 33 TD/TT: 06/08/241943 Diesel Maintenance Electrician: HB Complete Blood Count Auto Di ff Reviewed date:10/04/2024 05:08:12 PM Interpretation: Performing Lab:[facility], [address] [place] [phone] Notes/Report: White Blood Count 9.1 4.8-10.8 X10*3/uL [...] 0.0-0.2 /100WBC Neutrophils Absolute Auto 5.4 2.0-8.3 x10*3/uL Imm Gran Abs Auto 0.02 0.00-0.03 X10*3/uL Lymphocytes Absolute Auto 2.6 1.2-4.9 X10*3/uL Monocytes Absolute Auto 0.8 0.1-1.2 X10*3/uL Eosinophils Absolute Auto 0.2 0.0-0.4 X10*3/uL Basophils Absolute Auto 0.1 0.0-0.2 X10*3/uL NRBC Abs Auto 0.000 0.0-0.012 X10*3/uL Comprehensive [place]. Panel Fa st Reviewed date:10/04/2024 12:46:30 PM Interpretation: Performing Lab:[facility], [address] [place] [phone] Notes/Report: Sodium 141 135-145 mmol/L Potassium 4.6 [...] Panel Reviewed date:10/04/2024 12:17:51 PM Interpretation: Performing Lab:[address] [address] Notes/Report: Triglycerides 92 <150 mg/dL Desirable Triglyceride: [...] (Free>4and<10) Reviewed date:10/04/2024 12:17:42 PM Interpretation: Performing Lab:[address] [address] Notes/Report: PSA,Total (Free>4and<10) 1.97 0.00-4.00 ng/mL A [...] t Reviewed date:10/04/2024 05:06:34 PM Interpretation: Performing Lab:[facility], [address] [place] [phone] Notes/Report: Urine, Clean Catch Color Urine Yellow Appearance Urine Clear PH 5.5 5.0-9.0 Glucose Urine UA Negative Negative mg/dL Urine Blood Negative Negative Specific Alvin - Urine 1.020 1.005-1.025 Urine Protein Negative Neg-Trace mg/dL Urine Ketones Negative Negative mg/dL Nitrite Urine Negative Negative Leukocyte Esterase Urine Negative Negative RBC Urine 0-2 0-2 /HPF WBC Urine 0-5 0-5 /HPF Squamous Epithelial Cell Urine 0-2 0-2 /HPF Bacteria Urine None Seen None Seen Hyaline Casts Urine 0-2 0-2 /LPF SARS-CoV2/FLU/RSV Reviewed date:12/27/2024 06:55:45 PM Interpretation: Performing Lab:[facility], [address] [place] [phone] Notes/Report: Influenza A PCR NEGATIVE Negative Influenza B PCR NEGATIVE Negative Resp Syncy Virus RNA Qual PCR NEGATIVE Negative SARS COV2 PCR INHOUSE NEGATIVE Negative All test results must be correlated with clinical findings. Negative results do not preclude SARS-CoV2, influenza A virus, influenza B virus and/or RSV infection and should not be used as the sole basis for treatment or other patient management decisions. Negative results must be combined with clinical observations, patient history, and epidemiological information. This test has not been evaluated for monitoring treatment of infection. This test has been authorized by the FDA under an Emergency Use Authorization (EUA) for use by authorized laboratories. Testing performed on the [facility] GeneXpert utilizing real-time RT-PCR. All SARS CoV2 and positive influenza A/B results are reported to [facility]. XR chest 2V Reviewed date:12/30/2024 12:28:58 PM Interpretation: Performing Lab: Notes/Report: [address] [address] XRay Report Signed Patient: Brodie Lin MR#: [id number] : 1970 Acct:[id number] Age/Sex: 54 / M ADM Date: 12/26/24 Loc: HO.LAB Attending Dr: Dustin García MD Ordering Physician: Dustin García MD Date of Service: 12/26/24 Procedure(s): XR chest 2V Accession Number(s): [id number] cc: Dustin García MD EXAMINATION: XR CHEST 2 VIEWS HISTORY: ASTHMA COMPARISON: There are no prior studies available for comparison. FINDINGS: PA and lateral views of the chest are submitted. There are low lung volumes. The lungs are clear. There is no pleural effusion, pneumothorax, or pulmonary vascular congestion. The heart is normal in size. The bones are intact. XR/XR chest 2V IMPRESSION: No acute cardiopulmonary abnormality. Electronically signed by: Casper North MD 12/26/2024 10:37 AM EDT Dictated By: Casper North MD Signed By: <Electronically signed by Casper North MD in OV> 12/26/24 1037 DD/ 0858 TD/TT: 12/26/24 0907 Diesel Maintenance Electrician: [address] [address] XRay Report Signed Patient: Brodie Lin MR#: [id number] : 1970 Acct:[id number] Age/Sex: 54 / M ADM Date: 12/26/24 Loc: HO.LAB Attending Dr: Dustin García MD Ordering Physician: Dustin García MD Date of Service: 12/26/24 Procedure(s): XR isabelle st 2V Accession Number(s): [id number] cc: Dustin García MD EXAMINATION: XR CHES T 2 VIEWS HISTORY: ASTHMA COMPARISON: There ar e no prior studies available for comparison. FINDINGS: PA and lateral views of the chest are submitted. There are low lung volumes. Th e lungs are clear. There is no pleural effusion, pneumothorax, or pulmonary vascular congestion. The heart is normal in size. The bones are intact. XR/XR chest 2V IMPRESSION: No acute cardiopulmonary abnormality. Electronically jazmine d by: Casper North MD 12/26/2024 10:37 AM EDT RP Dictated By: Casper North MD Signed By: <Electronically signed by Casper North MD in OV> 12/26/24 1037 DD/ 0858 TD/TT: 12/26/24 0907 Diesel Maintenance Electrician: Reason For Referral No Information Medications Medication SIG (Take, Route, Frequency, Duration) Notes Start Date End Date Status Fluticasone Propionate 50 MCG/ACT SHAKE LIQUID AND USE 1 SPRAY IN EACH NOSTRIL EVERY DAY for 60 Not-Taking Azelastine HCl 0.05 % 1 drop into affect ed eye Ophthalmic Twice a day for 30 days 10/06/2020 Not-Taking PARoxetine HCl 40 MG TAKE 1 TABLET BY [facility] EVERY DAY IN THE MORNING for 30 Active Albuterol Sulfate HFA 108 (90 Base) MCG/ACT 1 puff as needed Inhalation every 4 hrs for 30 days 12/10/2024 Active predniSONE 10 MG 1 tablet with food o r milk Orally 4 tabs for 3 days,3tabs for 3 days, 2 tabs for 3 days, and 1 tab for 3 days for 14 days 12/26/2024 Active Omeprazole 20 MG TAKE 1 CAPSULE BY MO [facility] EVERY DAY 30 MINUTES BEFORE BREAKFAST for 90 Active Lisinopril-hydroCHLOROthi azide 10-12.5 MG TAKE 1 TABLET BY MOUTH DAILY Orally Once a day for 90 days Active Ibuprofen 800 MG TAKE 1 TABLET BY SERGEI TH THREE TIMES DAILY EVERY 8 HOURS for 30 Active Sildenafil Citrate 50 MG TAKE ONE TABLET BY MOUTH EVERY DAY NEEDED for 30 Active Tums 500 MG 1 tablet Orally Once a day for 30 day(s) Not-Taking ProAir HFA 108 (90 Base) MCG/ACT 1 puff as needed Inhalation every 4 hrs for 30 days 09/20/2019 Not-Taking Immunizations Vaccine Route Administration Date Status Comme [...] Problem Status W/U Status Risk Notes Problem 959367215 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) Active confirmed Problem 21132215 Anxiety (F41.9) Active confirmed Problem 375599330 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 Problem 484321746 Other obesity (E66.8) Active confirmed Problem 2797708 Primary insomnia (F51.01) Active confirmed Problem 796669853 Erectile dysfunction due to diseases classified elsewhere (N52.1) Active confirmed Problem 037885028 Lumbar disc disease (M51.9) Active confirmed Problem 99424826 Essential hypertension (I10) Active confirmed Problem 170535582 Environmental allergies (Z91.09) Active confirmed Problem Asthma (726849736) Asthma (J45.909) Active confirmed Problem 515372385 Panic attack (F41.0) Active confirmed Problem 165816988 Borderline high cholesterol (E78.9) Active confirmed Problem 183626102 Body mass index (BMI) of 30.0 to 30.9 in adult (Z68.30) Active confirmed Vital Signs Blood pressure diastolic 70 mm Hg 12/26/2024 karla ght is p 2 pounds since 12-10-24 Height 70 in 12/26/2024 weight is p 2 p ounds since 12-10-24 Blood pressure systolic 120 mm Hg 12/26/2024 weig ht is p 2 pounds since 12-10-24 Weight 247 lbs 12/26/2024 weight is p 2 p ounds since 12-10-24 BMI 35.44 kg/m2 12/26/2024 weight is p 2 p ounds since 12-10-24 Encounters Encounter Location Date Provider Diagnosis Dustin García MD [address] [place] [id number] 10/04/2024 Dustin García Blood tests for routine general physical examination Z00.00 ; Essential hypertension I10 and Borderline high cholesterol E78.9 Dustin García MD [address] [place] [address] [id number] 08/22/2024 Dustin García Unintended weight gain R63.5 ; Essential hypertension I10 and Panic attack F41.0 Dustin García MD [address] [place] [address] [id number] 12/10/2024 Dustin García Bronchitis J40 Dustin García MD [address] [place] [address] Drive [address] [place] [id number] 12/26/2024 Dustin García Asthma J45.909 Dustin García MD [address] [place] [address] [id number] 01/16/2025 Dustin García Assessments Encounter Date Diagnosis (ICD Code) Assessment Notes Treatment Notes Treatment Clinical Notes Section Notes 10/04/2024 Blood tests for routine general physical examination (ICD-10 - Z00.00) 08/22/2024 Unintended weight gain (ICD-10 - R63.5) discussed the meds and and he doesn't want to stay on meds 12/10/2024 Bronchitis (ICD-10 - J40) patient verbalized understanding of medications and directions for use 12/26/2024 Asthma (ICD-10 - J45.909) patient verbalized understanding of medication and directions for use, pending diagnostic testing, XRAY ORDER AND LAB ORDER PRINTED AND GIVEN TO PATIENT, 10/04/2024 Essential hypertension (ICD-10 - I10) 08/22/2024 Essential hypertension (ICD-10 - I10) 10/04/2024 Borderline high cholesterol (ICD-10 - E78.9) 08/22/2024 Panic attack (ICD-10 - F41.0) Plan Of Treatment Pending Test Test Name Order Date CT ABD & PELVIS WITH CONTRAST 06/02/2022 MRI LUMBAR SPINE NO CONTRAST 04/12/2022 MRI LUMBAR SPINE W&WO CONTRAST 2 XR CHEST 2 VIEW PA & LAT 12/26/2024 XR CHEST 2 VIEW PA & LAT 06/10/2013 XR GI SERIES 07/05/2013 Complete Blood Count Auto Diff 5 Comprehensive [place]. Panel Fast 5 Lipid Panel 10/04/2024 PSA,Total (Free>4and<10) 10/04/2024 MR lumbar spine wo con 07/05/2021 US venous duplex LE LT 04/11/2023 XR knee RT 3V 04/09/2024 SARS-CoV2/FLU/RSV 12/26/2024 UA ClnCatch+Micro w/rflx Cult 10/04/2024 Next Appt Details Provider Name:Dustin montague, 06/24/2025 07:30:00 AM, [address] [place] [address], Suite [facility], [place], [place], [phone], Provider Name:Dustin Muller ier, 07/01/2025 02:30:00 PM, [address] [place] [address], [address], [place], [place], [phone], Insurance Providers Payer Name Payer Address Payer Phone Subscriber Number Group Number Insured Name Patient Relationship to Insured Coverage Start Date Coverage End Date [address] [place] [address] [phone] [id number] Brodie Kulkarni Self - patient is the insured [facility] [address] [place] [address] [id number] DOI 21 Brodie Kulkarni Self - patient is the insured [facility] e [address] [place] [address] [id number] DOI 2022 Brodie Kulkarni Self - patient is the insured Medical (General) History Medical History History ICD Code Colonoscopy done 08/10/[address] Novak (n ext pending biopsy)
== END 2025-05-31 09:53 | disposition home or self-care (01) ==
LOC: HO.MRI 09:52
PROVIDERS: Visit Provider Emergency Medicine
DX: M54.50 Low back pain, unspecified (principal)
CPT/HCPCS: 72148

== ENCOUNTER → 2025-05-31 10:29 | Outpatient (BNV) | payer OTHER, SELFPAY | PROVIDERS: Visit Provider Student in an Organized Health Care Education/Training Program | DX: M54.59 Other low back pain (principal) | CPT/HCPCS: 72148 ==

== ENCOUNTER 2025-06-24 07:30 | Outpatient (REF) | payer OTHER, SELFPAY ==
[2025-06-24 10:38] LABS: MANUAL DIFF FLAG NO
[2025-06-24 10:54] LABS: Appearance Urine Clear; Glucose Urine UA Negative (Negative); PH 6.0 (5.0-9.0); Specific Gravity - Urine 1.025 (1.005-1.025)
[2025-06-24 10:55] LABS: Hematocrit 39.8 % (42.0-52.0); Hemoglobin 13.0 g/dl (14.0-18.0); Imm Gran Abs Auto 0.02 X10*3/uL (0.00-0.03); Imm Gran Pct Auto 0.2 % (0.0-0.4); Lymphocytes Absolute Auto 2.6 X10*3/uL (1.2-4.9); Mean Corpuscular HGB Conc 32.7 g/dl (31.0-36.0); Mean Corpuscular Hemoglobin 27.8 pg (27.0-33.0); Mean Corpuscular Volume 85.0 fL (80.0-98.0); NRBC Abs Auto 0.000 X10*3/uL (0.0-0.012); NRBC Pct Auto 0.0 /100WBC (0.0-0.2); Platelet Count 251 X10*3/uL (160-400); Red Blood Count 4.68 X10*6/uL (4.60-5.80); White Blood Count 8.9 X10*3/uL (4.8-10.8)
[2025-06-24 11:11] LABS: Alanine Aminotransferase 41 U/L (0-40); Albumin Level 4.6 g/dL (3.5-5.0); Alkaline Phosphatase 94 U/L (39-117); Anion Gap 11 (12-20); Aspartate Amino Transferase 47 U/L (5-37); Blood Urea Nitrogen 16 mg/dL (9-16); Calcium 9.1 mg/dL (8.4-10.2); Carbon Dioxide 27 mmol/L (22-29); Chloride 107 mmol/L (96-108); Cholesterol 209 mg/dL (<200); Estimated Glomerular Filt Rate > 60; HDL Cholesterol 48 mg/dL (>40); Potassium 4.1 mmol/L (3.3-5.1); Sodium 141 mmol/L (135-145); Total Protein 7.4 g/dL (6.5-8.0); Triglycerides 106 mg/dL (<150)
--- OUTSIDE RECORDS SUMMARY | 2025-06-24 12:18 | XMS_ITS | Clinical Summary ---
Author Organization [facility] Address [address] [place] [address] Phone Care Team Providers Care Jewel Waxer Name Role Phone Pcp, Unknown Primary Care [...] topic Medical Devices Not on file Insurance [facility] H[facility] [address] [place] [address] HMO [facility] [place] [address] [place] [address] HMO Care Teams Jewel Waxer Relationship Specialty Start Date End Date Pcp, Unknown PCP - General 10/20/23 Additional Source Comments The information contained in this document represents components of the legal health record. It is not the complete legal health record.[facility]
== END 2025-06-24 07:31 | disposition home or self-care (01) ==
LOC: HO.LNP 07:30
PROVIDERS: Visit Provider Internal Medicine
DX: Z00.00 Encounter for general adult medical examination without abnormal findings (principal); I10 Essential (primary) hypertension; E78.9 Disorder of lipoprotein metabolism, unspecified
CPT/HCPCS: 80053; 80061; 81001; 85025

== ENCOUNTER → 2025-07-08 14:35 | Outpatient (BNVA) | payer OTHER, SELFPAY | PROVIDERS: Visit Provider Physician Assistant Medical | DX: S30.0XXD Contusion of lower back and pelvis, subsequent encounter (principal); W17.89XD Other fall from one level to another, subsequent encounter; M51.369 Other intervertebral disc degeneration, lumbar region without mention of lumbar back pain or lower extremity pain; Z02.79 Encounter for issue of other medical certificate | CPT/HCPCS: 99213 ==